=== PATIENT | male | born 1960 | race Caucasian/White ===

== ENCOUNTER 2019-12-21 12:40 | Inpatient (IN) | payer MEDICARE, OTHER ==
[~2019-12-21] VITALS: Ht 170.2 cm; Wt 73.8 kg
[2019-12-21 13:06] VITALS: BP 129/81
--- NOTE | 2019-12-21 14:04 | HP ---
ADMIT DATE: 12/21/2019 ATTENDING PHYSICIAN: Dr. Mcgregor. HISTORY OF PRESENT ILLNESS: We are asked to see this patient for admission. He was slated to go to the [facility]. The patient is age 59. He has underlying schizoaffective disorder with other medical issues. There is a previous stroke, multi-infarct dementia, cognitive impairment. He has been throwing things in his room. Mood has been very labile, explosive, lots of verbal abuse, yelling and screaming at the staff, demanding things. He is admitted here for further evaluation and COVID-19 screening. PAST MEDICAL HISTORY: Significant for type 2 diabetes. He has gotten hemiplegia, schizoaffective disorder, old stroke, dysphagia and cognitive impairments. ALLERGIES: HE HAS ALLERGIES TO EGG WHITE. EXACT CAUSE IS UNCLEAR. CURRENT MEDICINES: Reviewed. He was taking Tylenol, Cogentin, cholecalciferol, Dulcolax, Lexapro, Neurontin, ibuprofen, ketaconazole shampoo, Klonopin, loperamide, metformin, Pepcid, Seroquel, Remeron, Senna, tramadol, Depakote, vitamin B12, and zinc. SOCIAL HISTORY: He is a smoker. He does not drink any alcohol. FAMILY HISTORY: Noncontributory. REVIEW OF SYSTEMS: Significant for some dyspnea with minimal exertion. He denied any chest pain, palpitations, COVID exposure, nausea, and vomiting. All other systems reviewed and turned to be negative. PHYSICAL EXAMINATION: GENERAL: When I saw him, this is a pleasant gentleman. He was fairly alert and cooperative. INITIAL VITAL SIGNS: Showed blood pressure 129/81, pulse 56 and regular. He was afebrile, oxygen saturation 92% on room air. HEENT: Head is without trauma. Pupils are reactive. Sclerae nonicteric. Oropharynx clear. NECK: Supple, no bruits identified. LUNGS: Good breath sounds, otherwise clear. CARDIOVASCULAR: Showed regular heart tones. No gallops. ABDOMEN: Soft, obese, protuberant. No organomegaly. Bowel sounds were hypoactive. EXTREMITIES: Showed trace edema. NEUROLOGIC: Focally intact. Speech is fluent. PERTINENT LABORATORY STUDIES: CBC, chemistry panel serology, COVID-19 swab, and treponema serology had been sent. ASSESSMENT: 1. A 59-year-old gentleman, [facility] resident with multiinfarct dementia. 2. Agitated behavior with aggression. 3. Type 2 diabetes mellitus. 4. Gastroesophageal reflux disease. 5. Old cerebrovascular accident. 6. History of dysphagia. PLAN: 1. Admit to the inpatient unit. 2. Some home meds have been restarted. 3. Await lab results and coronavirus swabs. When that comes back negative, he can safely go upstairs to the [facility]. 4. Other psych meds per Dr. Belle. CARLOZ MCGREGOR MD DR: JIM/christine JOB#: [id number] / [id number]
[2019-12-21] MEDS ORDERED: FAMO-63 PO (14:08)
[2019-12-21] MEDS ORDERED: METF10007 PO (14:08)
[2019-12-21] MEDS ORDERED: MIRT15TA2 PO (14:08)
[2019-12-21] MEDS ORDERED: CLON0.5T PO (14:08)
[2019-12-21] MEDS ORDERED: ACET325T21 PO (14:08)
[2019-12-21] MEDS ORDERED: VALP250S3 PO (14:08)
[2019-12-21] MEDS ORDERED: ESCITALOPRAM OX20 MG PO (14:08)
[2019-12-21] MEDS ORDERED: QUET25TA5 PO (14:08)
[2019-12-21 14:35] LABS: BASO # 0.1 x10^3/uL (0.0-0.2); BASO % 1 % (0-3); EOS # 0.1 x10^3/uL (0.0-0.7); EOS % 1 % (0-3); HEMOGLOBIN 15.1 g/dL (13.0-17.5); LYMPH # 2.9 x10^3/uL (1.0-4.8); LYMPH % 33 % (24-48); MEAN CORPUSCULAR HEMOGLOBIN 33 pg (25-35); MEAN CORPUSCULAR HGB CONC 33 g/dL (31-37); MEAN CORPUSCULAR VOLUME 99 fL (79-100); MONO % 11 % (0-9); NEUT # 4.8 x10^3uL (1.8-7.7); NEUT % 54 % (31-73); PLATELET COUNT 169 x10^3/uL (140-400); RED BLOOD COUNT 4.64 x10^6/uL (4.30-5.70); RED CELL DISTRIBUTION WIDTH 14.3 % (11.5-14.5); WHITE BLOOD COUNT 8.8 x10^3/uL (4.0-11.0)
[2019-12-21 14:36] VITALS: BP 118/72
[2019-12-21 14:45] LABS: ALBUMIN 2.7 g/dL (3.4-5.0); ALBUMIN/GLOBULIN RATIO 0.7 (1.0-1.7); CALCIUM 8.8 mg/dL (8.5-10.1); MAGNESIUM 1.7 mg/dL (1.8-2.4); POTASSIUM 4.1 mmol/L (3.5-5.1); TOTAL BILIRUBIN 0.1 mg/dL (0.2-1.0); TOTAL PROTEIN 6.5 g/dL (6.4-8.2)
[2019-12-21] MEDS ORDERED: ACETAMINOPHEN 325 MG TABLET PO PRN (15:15)
--- NOTE | 2019-12-21 15:45 | EKG ---
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
[2019-12-21] MEDS: metFORMIN 500 MG TABLET PO SCH (17:09)
[2019-12-21 19:50] VITALS: BP 122/79
[2019-12-21] MEDS: VALPROIC ACID 250 MG CAPSULE. PO SCH (21:22)
[2019-12-21] MEDS: clonazePAM 0.5 MG TABLET PO SCH (21:23)
[2019-12-21] MEDS: MIRTAZAPINE ODT 15 MG TAB.RAPDIS. PO SCH (21:23)
[2019-12-21] MEDS: QUEtiapine 25 MG TABLET. PO SCH (21:23)
--- NOTE | 2019-12-21 22:03 | PDOC ---
Exam Note: Kwasi Note: Please also refer to the separate dictated note~for this date of service dictated separately.~Patient seen individually. Discussed the patient with Nursing staff reviewed the chart.~Reviewed interim history and current functioning. Reviewed vital signs,~Labs/ Radiology~and current medications noted below. Continue current treatment with the changes noted in the dictated addendum note Assessment: Vital Signs/I&O: Vital Signs Date Time Temp Pulse Resp B/P (MAP) Pulse Ox O2 Delivery O2 Flow Rate FiO2 12/21/19 20:30 Room Air 12/21/19 19:50 98.7 71 20 122/79 (93) 99 Labs: Laboratory Tests Test 12/21/19 14:21 12/21/19 20:17 White Blood Count 8.8 x10^3/uL (4.0-11.0) Red Blood Count 4.64 x10^6/uL (4.30-5.70) Hemoglobin 15.1 g/dL (13.0-17.5) Hematocrit 46.0 % (39.0-53.0) Mean Corpuscular Volume 99 fL (79-100) Mean Corpuscular Hemoglobin 33 pg (25-35) Mean Corpuscular Hemoglobin Concent 33 g/dL (31-37) Red Cell Distribution Width 14.3 % (11.5-14.5) Platelet Count 169 x10^3/uL (140-400) Neutrophils (%) (Auto) 54 % (31-73) Lymphocytes (%) (Auto) 33 % (24-48) Monocytes (%) (Auto) 11 % (0-9) H Eosinophils (%) (Auto) 1 % (0-3) Basophils (%) (Auto) 1 % (0-3) Neutrophils # (Auto) 4.8 x10^3uL (1.8-7.7) Lymphocytes # (Auto) 2.9 x10^3/uL (1.0-4.8) Monocytes # (Auto) 1.0 x10^3/uL (0.0-1.1) Eosinophils # (Auto) 0.1 x10^3/uL (0.0-0.7) Basophils # (Auto) 0.1 x10^3/uL (0.0-0.2) Sodium Level 137 mmol/L (136-145) Potassium Level 4.1 mmol/L (3.5-5.1) Chloride Level 100 mmol/L (98-107) Carbon Dioxide Level 30 mmol/L (21-32) Anion Gap 7 (6-14) Blood Urea Nitrogen 11 mg/dL (8-26) Creatinine 1.0 mg/dL (0.7-1.3) Estimated GFR (Cockcroft-Gault) 77.0 BUN/Creatinine Ratio 11 (6-20) Glucose Level 368 mg/dL (70-99) H Calcium Level 8.8 mg/dL (8.5-10.1) Magnesium Level 1.7 mg/dL (1.8-2.4) L Total Bilirubin 0.1 mg/dL (0.2-1.0) L Aspartate Amino Transferase (AST) 6 U/L (15-37) L Alanine Aminotransferase (ALT) 16 U/L (16-63) Alkaline Phosphatase 72 U/L (46-116) Total Protein 6.5 g/dL (6.4-8.2) Albumin 2.7 g/dL (3.4-5.0) L Albumin/Globulin Ratio 0.7 (1.0-1.7) L Glucose (Fingerstick) 210 mg/dL (70-99) H Current Medications: Meds: Current Medications Medications (Trade) Dose Ordered Sig/Samm Route PRN Reason Start Time Stop Time Status Last Admin Dose Admin Clonazepam (KlonoPIN) 0.25 mg TID PO 12/21/19 21:00 12/21/19 21:23 Mirtazapine (Remeron Mariah-Tab) 7.5 mg HS PO 12/21/19 21:00 12/21/19 21:23 Quetiapine Fumarate (SEROquel) 12.5 mg QHS PO 12/21/19 21:00 12/21/19 21:23 Metformin HCl (Glucophage) 1,000 mg BIDWMEALS PO 12/21/19 17:00 12/21/19 17:09 Valproic Acid (Depakene) 250 mg BID PO 12/21/19 21:00 12/21/19 21:22 I have reviewed the current psychotropics carefully including drug interactions. Risk benefit ratio favors no change other than as noted in my dictated progress note. CAREN MALIK MD Dec 21, 2019 22:03
--- NOTE | 2019-12-21 23:36 | CONS ---
DATE OF CONSULTATION: 12/21/2019 PSYCHIATRIC CONSULTATION This note covers elements not covered in my initial note of 12/20. IDENTIFYING DATA: The patient is a 59-year-old male, referred to us from [facility] by his primary care physician and psychiatrist on account of an acute exacerbation of his schizoaffective disorder, bipolar type, and failure for outpatient psychiatric interventions. He was accepted on the [facility], but is on the medical/surgical floor until his COVID screen is negative before we transition him there. The patient also has a past history of CVA, multiinfarct dementia, cognitive impairment. [facility], he was throwing things in his room. He has had marked mood lability, explosive outbursts, verbally abusive, yelling, screaming at staff, demanding things. I have been asked to consult to follow him from a psychiatric standpoint while he is on the medical/surgical floor. CHIEF COMPLAINT: "I don't have any problems with psychiatric issues." HISTORY OF PRESENT ILLNESS: After stating the above as I interviewed the patient, he is able to tell me that he was born and raised in [place], and had longstanding mental health treatment, and then was ultimately transferred to this area and he is not sure about the circumstances for that happening since he does not have any family in this area, but only in [place]. 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 However, since he came to this area, shortly thereafter he had a CVA, which complicated his schizoaffective disorder, bipolar type. Recently, he was moved from the level 2 facility to [facility] and has been extremely psychotic, agitated, labile in his mood, aggressive and disruptive, resulting in this referral. No active suicidal or homicidal ideation. PAST PSYCHIATRIC HISTORY: As above. MEDICAL HISTORY: Type 2 diabetes mellitus, status post CVA, dysphagia. ALLERGIES: EGG WHITE. CURRENT PSYCHOTROPICS: Include Lexapro, Seroquel, Remeron, Depakote. MRAD was reviewed. SOCIAL HISTORY: He is a smoker. No alcohol abuse. FAMILY HISTORY: Noncontributory. REVIEW OF SYSTEMS: Ambulation impaired. Complains of some dyspnea with mild exertion. No pain, palpitations. MENTAL STATUS EXAMINATION: The patient is oriented to himself, situation; knew he was admitted earlier today. Speech has some latency, coherent. Does have some aphasia. Abstraction fair, computation impaired. Attention span short. Language function intact. He is somewhat paranoid. No active suicidal or homicidal ideation. LABORATORY DATA: Reviewed. IMPRESSION: Schizoaffective disorder, bipolar type, mixed with psychotic features; anxiety disorder, unspecified; impulse control disorder, unspecified. Rest as above. RECOMMENDATIONS: From a psychiatric standpoint, continue his current psychotropics. Once he is COVID negative, we will transition him to the [facility]. Dr. Ross/Dr. Bennett, thank you for the opportunity to participate in the patient's care. MAN Lokesh MALIK MD DR: CASA/christine JOB#: [id number] / [id number]
[2019-12-22 06:32] VITALS: BP 110/61
[2019-12-22] MEDS: metFORMIN 500 MG TABLET PO SCH ×2 (08:03→17:00)
[2019-12-22] MEDS: VALPROIC ACID 250 MG CAPSULE. PO SCH ×2 (08:04→20:00)
[2019-12-22] MEDS: clonazePAM 0.5 MG TABLET PO SCH ×3 (08:04→20:00)
[2019-12-22] MEDS ORDERED: FAMOTIDINE 20 MG TABLET PO SCH (09:00)
[2019-12-22] MEDS ORDERED: CITALOPRAM 20 MG TABLET. PO SCH (09:00)
[2019-12-22 11:37] VITALS: BP 115/70
[2019-12-22 13:46] LABS: HDLC 26 mg/dL (40-60); TRIGLYCERIDES 527 mg/dL (0-150); VLDLC 105 mg/dL (0-40)
[2019-12-22 13:47] LABS: THYROID STIM HORMONE (TSH) 1.466 uIU/mL (0.358-3.740)
[2019-12-22 14:58] VITALS: BP 114/72
--- NOTE | 2019-12-22 15:48 | PN ---
DATE: 12/22/2019 ATTENDING PHYSICIAN: Dr. Mcgregor. SUBJECTIVE: No new complaints. He is comfortable. He is alert. He is not in any acute distress. OBJECTIVE FINDINGS: VITAL SIGNS: Blood pressure today is 115/70, room air sats 93%, pulse is between 50 and 70, temperature 98.2 degrees Fahrenheit. HEENT: Head is without trauma. Pupils are reactive. Sclerae nonicteric. Oropharynx is clear. NECK: Supple, no bruits identified. LUNGS: Otherwise clear. CARDIOVASCULAR: Showed regular heart tones. No gallops. ABDOMEN: Soft. EXTREMITIES: Without edema. NEUROLOGIC FINDINGS: Focally intact. No deficits. LABORATORY DATA: Laboratory studies were reviewed. Normal electrolytes. Hemoglobin was 15.1 grams with a normal white count of 8800. Nonfasting blood sugar 158 and COVID, coronavirus, swab is still pending. ASSESSMENT: 1. A 59-year-old gentleman, assisted resident with multiinfarct dementia. 2. Agitation with aggression. 3. Type 2 diabetes. 4. Gastroesophageal reflux disease. 5. Old cerebrovascular accident. 6. History of dysphagia. PLAN: 1. Diet as tolerated. 2. Home meds continued. 3. Await COVID-19 swab. When that returns negative, he can be sent upstairs to the [facility]. CARLOZ MCGREGOR MD DR: JIM/christine JOB#: [id number] / [id number]
[2019-12-22 19:44] VITALS: BP 103/59
[2019-12-22] MEDS: MIRTAZAPINE ODT 15 MG TAB.RAPDIS. PO SCH (20:00)
[2019-12-22] MEDS: QUEtiapine 25 MG TABLET. PO SCH (20:00)
[2019-12-22 20:18] LABS: COLOR,URINE YELLOW
[2019-12-22 20:19] LABS: BACTERIA,URINE FEW /HPF (0-FEW); BILIRUBIN,URINE NEG (NEG); CLARITY,URINE CLEAR; GLUCOSE,URINE 500 mg/dL (NEG); NITRITE,URINE NEG (NEG); RBC,URINE 0 /HPF (0-2); SQUAMOUS EPITHELIAL CELL,UR FEW /LPF; UROBILINOGEN,URINE 0.2 mg/dL (0.2 mg/dL)
[2019-12-22] MEDS ORDERED: NYSTATIN TOPICAL POWDER 15GM BOTTLE. TP SCH (21:00)
--- NOTE | 2019-12-22 22:04 | PDOC ---
Exam Note: Kwasi Note: Please also refer to the separate dictated note~for this date of service dictated separately.~Patient seen individually. Discussed the patient with Nursing staff reviewed the chart.~Reviewed interim history and current functioning. Reviewed vital signs,~Labs/ Radiology~and current medications noted below. Continue current treatment with the changes noted in the dictated addendum note Assessment: Vital Signs/I&O: Vital Signs Date Time Temp Pulse Resp B/P (MAP) Pulse Ox O2 Delivery O2 Flow Rate FiO2 12/22/19 19:44 99.1 50 20 103/59 (74) 93 Room Air I & O 12/21/19 12/21/19 12/22/19 15:00 23:00 07:00 Intake Total 120 ml 840 ml 560 ml Output Total 1 ml Balance 120 ml 840 ml 559 ml Labs: Laboratory Tests Test 12/22/19 11:55 12/22/19 17:00 12/22/19 19:54 12/22/19 19:59 Glucose (Fingerstick) 158 mg/dL (70-99) H 178 mg/dL (70-99) H 255 mg/dL (70-99) H Urine Collection Type Void Urine Color Yellow Urine Clarity Clear Urine pH 7.0 Urine Specific [place] 1.025 Urine Protein Neg (NEG-TRACE) Urine Glucose (UA) 500 mg/dL (NEG) Urine Ketones (Stick) 15 mg/dL (NEG) Urine Blood Neg (NEG) Urine Nitrite Neg (NEG) Urine Bilirubin Neg (NEG) Urine Urobilinogen Dipstick 0.2 mg/dL (0.2 mg/dL) Urine Leukocyte Esterase Neg (NEG) Urine RBC 0 /HPF (0-2) Urine WBC 11-20 /HPF (0-4) Urine Squamous Epithelial Cells Few /LPF Urine Bacteria Few /HPF (0-FEW) Current Medications: Meds: Current Medications Medications (Trade) Dose Ordered Sig/Samm Route PRN Reason Start Time Stop Time Status Last Admin Dose Admin Famotidine (Pepcid) 20 mg DAILY PO 12/22/19 09:00 12/22/19 08:04 Citalopram Hydrobromide (CeleXA) 40 mg DAILY PO 12/22/19 09:00 12/22/19 08:04 Nystatin (Nystop) 1 shay BID TP 12/22/19 21:00 12/22/19 21:00 I have reviewed the current psychotropics carefully including drug interactions. Risk benefit ratio favors no change other than as noted in my dictated progress note. Diagnosis: Problems: (1) Schizoaffective disorder, bipolar type (2) Bipolar disorder, curr episode mixed, severe, with psychotic features (3) Impulse control disorder, unspecified (4) Anxiety disorder, unspecified CAREN MALIK MD Dec 22, 2019 22:04
[2019-12-22] MEDS ORDERED: NYST15PO9 TP (22:08)
[2019-12-22 22:58] VITALS: BP 108/70
--- NOTE | 2019-12-23 12:31 | DS ---
DATE OF DISCHARGE: 12/22/2019 FINAL DISCHARGE DIAGNOSES: 1. A 59-year-old gentleman with multiinfarct dementia. 2. Associated behavioral issues with agitation and aggression. 3. Type 2 diabetes mellitus. 4. Gastroesophageal reflux disease. 5. Old cerebrovascular accident. 6. History of dysphagia. HISTORY AND PHYSICAL: This is a 59-year-old gentleman with multiple strokes. He is in a nursing facility for his medical issues. He has had agitation and aggressive behavior. He was slated to go to the [facility]. He was admitted to the medical floor for screening of COVID-19. PHYSICAL EXAMINATION: Please see the dictated note. PERTINENT LABORATORY AND X-RAY STUDIES: Admission hemoglobin was 15.1 g/dL, white count 8800. Electrolytes were within normal range. Creatinine is 1.0 mg percent. Depakote levels were drawn. Serology negative for Treponema pallidum and not detected for coronavirus. Subsequent blood sugars were drawn and they were within acceptable range. Cholesterol was 237. TSH 1.4. COURSE IN THE HOSPITAL: The patient was admitted to the medical floor. We dao blood work. He had a diabetic diet. He was stable. His COVID swab came back negative late on the evening of the , he was therefore discharged then to go upstairs to the [facility]. His discharge meds are unchanged. He will continue his Klonopin 0.5 mg t.i.d., Lexapro, Pepcid, metformin 1000 b.i.d., Remeron, nystatin and Depakote doses unchanged. He was discharged then from our hospital in stable condition with explicit instructions and followup care. CARLOZ MCGREGOR MD DR: JIM/christine JOB#: [id number] / [id number] [facility]
== END 2019-12-22 22:52 | DRG 885 ==
LOC: 1 SOUTH 12:40
PROVIDERS: ADMIT Hospitalist; ATTEND Hospitalist
DX: F25.0 Schizoaffective disorder, bipolar type (principal); F17.200 Nicotine dependence, unspecified, uncomplicated; F41.9 Anxiety disorder, unspecified; F63.9 Impulse disorder, unspecified; F01.50 Vascular dementia, unspecified severity, without behavioral disturbance, psychotic disturbance, mood disturbance, and anxiety; K21.9 Gastro-esophageal reflux disease without esophagitis; Z20.828 Contact with and (suspected) exposure to other viral communicable diseases; Z79.84 Long term (current) use of oral hypoglycemic drugs; Z91.012 Allergy to eggs; E11.9 Type 2 diabetes mellitus without complications; I69.311 Memory deficit following cerebral infarction
CPT/HCPCS: 36415; 80053; 80061; 81001; 82306; 82607; 82947; 83036; 83735; 84443; 85025; 86592; 87077; 87086; 87186; 93005; U0003

== ENCOUNTER 2019-12-22 22:05 | Inpatient (IN) | payer MEDICARE, OTHER ==
[~2019-12-22] VITALS: Ht 170.2 cm; Wt 72.8 kg
[~2019-12-22 22:05] MED LIST: ACET325T21 PO; CLON0.5T PO; ESCITALOPRAM OX20 MG PO; FAMO-63 PO; METF10007 PO; MIRT15TA2 PO; QUET25TA5 PO; VALP250S3 PO
[2019-12-22] MEDS ORDERED: NYST15PO9 TP (22:08)
[2019-12-22 23:25] VITALS: BP 113/74
[2019-12-23] MEDS ORDERED: MAGNESIUM HYDROXIDE 2,400 MG/30 ML ORAL.SUSP. PO PRN (00:15)
[2019-12-23] MEDS ORDERED: METHYL SALICYLATE/MENTHOL TOPICAL OINTMENT 57GM TUBE. TP PRN (00:15)
[2019-12-23] MEDS ORDERED: MAG HYDROX/AL HYDROX/SIMETH 30 ML ORAL.SUSP PO PRN (00:15)
[2019-12-23 06:17] LABS: VAL ACID 33 mcg/mL (50-100)
[2019-12-23 06:45] VITALS: BP 117/67
[2019-12-23] MEDS ORDERED: VALPROIC ACID 250 MG CAPSULE. PO SCH (09:00)
[2019-12-23] MEDS: clonazePAM 0.5 MG TABLET PO SCH ×3 (09:42→20:55)
[2019-12-23] MEDS: CITALOPRAM 20 MG TABLET. PO SCH (09:42)
[2019-12-23 10:08] LABS: THYROXINE 5.6 ug/dL (4.5-12.0)
--- NOTE | 2019-12-23 13:07 | CONS ---
DATE OF CONSULTATION: 12/23/2019 MEDICAL CONSULTATION AND HISTORY AND PHYSICAL ATTENDING PHYSICIAN: Dr. Belle. HISTORY OF PRESENT ILLNESS: The patient is a 59-year-old gentleman I had on the medical floor. He was there for 2 days pending his COVID-19 swab, that came back negative. He was transferred to the [facility]. He has a longstanding history of schizoaffective disorder and other medical issues. He has had previous multi-infarct dementia, strokes, cognitive impairment, he has been throwing things in his room, mood has been labile, very exposed to lots of verbal abuse and yelling and screaming at the staff and demanding things. Other medical issues include type 2 diabetes, hemiplegia, schizoaffective disorder, old stroke, dysphagia and cognitive impairments. He has ALLERGIES TO EGG WHITE, exact reaction is unclear. CURRENT MEDICINES: Reviewed. He was on Tylenol, Klonopin, Lexapro, famotidine, metformin 1000 mg b.i.d., Remeron, nystatin, Seroquel and Depakote 250 mg p.o. b.i.d. SOCIAL HISTORY: He is a smoker, does not drink any alcohol. FAMILY HISTORY: Unobtainable. REVIEW OF SYSTEMS: He has had some dyspnea on minimal exertion. He denied any chest pain, COVID exposure, nausea, vomiting. All other systems reviewed and turned out to be negative. PHYSICAL EXAMINATION: GENERAL: When I saw him, this is a pleasant gentleman who is in no acute distress. VITAL SIGNS: Initial vital signs showed a pulse of 50 per minute, he was asymptomatic. Temperature 97.5 degrees Fahrenheit, blood pressure 117/67, pulse is 97 and regular. HEENT: Head is without trauma. Pupils are reactive. Sclerae nonicteric. Oropharynx is clear. NECK: Supple. No bruits. LUNGS: Otherwise clear. CARDIOVASCULAR: Showed regular heart tones. No gallops. Peripheral pulses are palpable and full. ABDOMEN: Soft, protuberant. No organomegaly. Bowel sounds are hypoactive. EXTREMITIES: Show no cyanosis or edema. NEUROLOGIC: Focally intact. Speech is fluent. LABORATORY STUDIES: From downstairs showed a normal hemoglobin of 15.1 g/dL, white count 8800. Chemistry panel within normal range. Nonfasting blood sugar had been 368, but repeated it was down in the 150s. ASSESSMENT 1. A 59-year-old gentleman with multi-infarct dementia. 2. Behavior issues with agitation and aggression. 3. Type 2 diabetes. 4. Gastroesophageal reflux disease. 5. Old cerebrovascular accident. 6. History of dysphagia. RECOMMENDATIONS: 1. Home meds have been reviewed and restarted. 2. Coronavirus swab was reported as negative. 3. We shall follow along for medical issues during his stay here. Thank you again for asking me to see this patient for medical consultation. CARLOZ MCGREGOR MD DR: JIM/christine JOB#: [id number] / [id number]
[2019-12-23 15:19] VITALS: BP 118/78
--- NOTE | 2019-12-23 15:53 | TX PLAN ---
Interdisciplinary Tx Plan Admission Information Dec 22, 2019 at 22:05 Legal Status (on Admission): Voluntary DPOA/Guardian Name: Self Sign Other Contact Name: Dr. Lola Chou Other Contact Verified Code Status: Full Code Allergies: Coded Allergies: egg (Verified Allergy, Unknown, 12/21/19) Estimated Length of Stay: 14 Diagnoses Primary Diagnosis: Schizoafective d/o, bipolar type, with acute exacerbation Reasons for Admission: Aggressive, Agitated, Angry, Grief, Poor impulse control Problem in Patient's Words: Per Pavan, "I got aggressive, I gave them the bird." Additional Admission Comments: Per intake record, throwing things in his room, mood lability, explsive, vebaly abusive, yelling/screaming, running his wheelchair into things, defacated on th floor, demanding Problems Active Problems: mood lability, explosive temper, verbally abusive, yelling screaming, running w/c into things, defecated on the floor, demanding Inactive Problems: Adequate intake of foods has been cooperative with medication administration Pt Strengths/Limitations Ability for Mckenzie: Poor Cognitive Functioning/Ability: Fair Communication Skills/Ability: Fair Financial Resources: Fair Insight/Judgement: Fair Intellectual Ability: Fair Physical Health: Fair Social Skills: Fair Stability in Family: Poor Verbal Skills: Fair Discharge Criteria Discharge Criteria: Adequate arrangements @DC, Improved behavior, Improved mood/thought Preliminary Discharge Plan Preliminary DC Plan: Fdc Other Arrangements: [facility] Special Precautions Special Precautions: Agitation/Assault Fall Risk: High Initial D/C Plan To return to [facility] Identified Discharge Needs: F/U with PCP, Psychiatrist, arrange for counseling if available. Currently Utilized Resources Currently Utilized Resources/P: PCP, APNP psych 24 hour care/oversight by [facility] Referrals Community Resources: Therapy referral if available at [facility] Identified Problems/Hx/Goals Objectives/Short-Term Goals Short Term Goals: Control abnormal behavior, Dec. Aggression, Dec. Symp. Depression, Medication Stabilization, Monitor Med Effects, Prevent Deteri oration, Promote Coping Skill Short Term Goals in Patient's: "To get out and back to [facility]." Interventions/Frequency Staff Interventions/Frequency&: Nursing to provide routine checks, medication administration, and adl support. Psychiatry to see three times a week. SW to visit twice weekly. Will encourage SW and recerational therapy group involvement. 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 Pavan reports he was eligible for disability at the age of 20 due to seizure dx. Social: Pavan enjoyed riding motorcycles, rock and roll music, TV, Bingo, and enjoys Education: Pavan graduated high school. Community Follow-up PCP, Psychiatry, Counseling Treatment Plan Explained Patient/Cost Clerk had this treatment plan explained to him/her as indicated by the signature below and has been given the opportunity to ask questions and make suggestions: Date: Patient/Cost Clerk Signature: HERMELINDA DIOP Dec 23, 2019 15:53
[2019-12-23] MEDS: metFORMIN 500 MG TABLET PO SCH (17:19)
[2019-12-23] MEDS: MIRTAZAPINE ODT 15 MG TAB.RAPDIS. PO SCH (20:53)
[2019-12-23] MEDS: QUEtiapine 25 MG TABLET. PO SCH (20:53)
[2019-12-23] MEDS: VALPROIC ACID 250 MG CAPSULE. PO SCH (20:54)
--- NOTE | 2019-12-23 22:06 | PDOC ---
Exam Note: Kwasi Note: Please also refer to the separate dictated note~for this date of service dictated separately.~Patient seen individually. Discussed the patient with Nursing staff reviewed the chart.~Reviewed interim history and current functioning. Reviewed vital signs,~Labs/ Radiology~and current medications noted below. Continue current treatment with the changes noted in the dictated addendum note Assessment: Vital Signs/I&O: Vital Signs Date Time Temp Pulse Resp B/P (MAP) Pulse Ox O2 Delivery O2 Flow Rate FiO2 12/23/19 15:19 98.4 59 59 118/78 (91) 95 Room Air Labs: Laboratory Tests Test 12/23/19 05:52 12/23/19 11:15 12/23/19 16:40 D-Dimer (Delmi) < 0.19 mg/L (0.00-0.50) Thyroxine (T4) 5.6 ug/dL (4.5-12.0) Total Triiodothyronine (TT3) 82 ng/dL (71-180) Valproic Acid Level 33 mcg/mL (50-100) L Valproic Acid Last Dose Date 12/22/19 Valproic Acid Last Dose Time 2100 Glucose (Fingerstick) 249 mg/dL (70-99) H 255 mg/dL (70-99) H Current Medications: Meds: Current Medications Medications (Trade) Dose Ordered Sig/Samm Route PRN Reason Start Time Stop Time Status Last Admin Dose Admin Clonazepam (KlonoPIN) 0.25 mg TID PO 12/23/19 09:00 12/23/19 20:55 Mirtazapine (Remeron Mariah-Tab) 7.5 mg HS PO 12/23/19 21:00 12/23/19 20:53 Quetiapine Fumarate (SEROquel) 12.5 mg QHS PO 12/23/19 21:00 12/23/19 20:53 Citalopram Hydrobromide (CeleXA) 40 mg DAILY PO 12/23/19 09:00 12/23/19 09:42 Valproic Acid (Depakene) 250 mg BID PO 12/23/19 09:00 12/23/19 14:00 DC 12/23/19 09:42 Metformin HCl (Glucophage) 1,000 mg BIDWMEALS PO 12/23/19 17:00 10/30/20 17:19 Valproic Acid (Depakene) 500 mg BID PO 12/23/19 21:00 12/23/19 20:54 I have reviewed the current psychotropics carefully including drug interactions. Risk benefit ratio favors no change other than as noted in my dictated progress note. Diagnosis: Problems: (1) Schizoaffective disorder, bipolar type (2) Impulse control disorder, unspecified (3) Anxiety disorder, unspecified (4) Bipolar disorder, curr episode mixed, severe, with psychotic features CAREN MALIK MD Dec 23, 2019 22:06
[2019-12-24 06:37] VITALS: BP 122/72
[2019-12-24] MEDS: CITALOPRAM 20 MG TABLET. PO SCH (08:38)
[2019-12-24] MEDS: clonazePAM 0.5 MG TABLET PO SCH ×3 (08:38→20:33)
[2019-12-24] MEDS: VALPROIC ACID 250 MG CAPSULE. PO SCH ×2 (08:38→20:31)
[2019-12-24] MEDS: metFORMIN 500 MG TABLET PO SCH ×2 (08:38→16:54)
[2019-12-24 16:15] VITALS: BP 105/68
[2019-12-24] MEDS: QUEtiapine 25 MG TABLET. PO SCH (20:32)
[2019-12-24] MEDS: MIRTAZAPINE ODT 15 MG TAB.RAPDIS. PO SCH (20:32)
--- NOTE | 2019-12-24 21:57 | PDOC ---
Exam Note: Kwasi Note: Please also refer to the separate dictated note~for this date of service dictated separately.~Patient seen individually. Discussed the patient with Nursing staff reviewed the chart.~Reviewed interim history and current functioning. Reviewed vital signs,~Labs/ Radiology~and current medications noted below. Continue current treatment with the changes noted in the dictated addendum note Assessment: Vital Signs/I&O: Vital Signs Date Time Temp Pulse Resp B/P (MAP) Pulse Ox O2 Delivery O2 Flow Rate FiO2 12/24/19 16:15 98.1 53 20 105/68 (80) 92 Room Air I & O 12/23/19 12/23/19 12/24/19 14:59 22:59 06:59 Intake Total 425 ml 320 ml Balance 425 ml 320 ml Labs: Laboratory Tests Test 12/24/19 07:32 12/24/19 11:59 12/24/19 16:41 12/24/19 19:35 Glucose (Fingerstick) 235 mg/dL (70-99) H 204 mg/dL (70-99) H 158 mg/dL (70-99) H 187 mg/dL (70-99) H Current Medications: I have reviewed the current psychotropics carefully including drug interactions. Risk benefit ratio favors no change other than as noted in my dictated progress note. Diagnosis: Problems: (1) Schizoaffective disorder, bipolar type (2) Impulse control disorder, unspecified (3) Anxiety disorder, unspecified (4) Bipolar disorder, curr episode mixed, severe, with psychotic features CAREN MALIK MD Dec 24, 2019 21:57
--- NOTE | 2019-12-24 23:30 | HP ---
ADMIT DATE: 12/22/2019 PSYCHIATRIC ADMISSION HISTORY AND EVALUATION This late entry 12/22/2019 covers elements not covered in my initial note. IDENTIFYING DATA: The patient is a 59-year-old male who was transitioned to [facility] Medical[facility]Surgical floor after his COVID-19 screen returned negative. The patient was initially referred from [facility] with a diagnosis of schizoaffective disorder, bipolar type, with acute exacerbation. He had been throwing things in his room, had marked mood lability at the [facility], verbally abusive, yelling, screaming, running his wheelchair into things, manipulative. He is having bowel movements on the floor, demanding, threatening. He had failed outpatient psychiatric interventions. Behaviors were deemed dangerous, unmanageable, resulting in this referral, having failed outpatient psychiatric interventions. CHIEF COMPLAINT: "I need to go home." HISTORY OF PRESENT ILLNESS: The patient has a history of schizoaffective disorder, bipolar type and status post cerebrovascular accident. He has been residing at [facility] for about 2 years, before that he was at a level 2 nursing facility in [place], [place]. Recently, he has had an acute exacerbation with increased psychotic symptoms, sleep and appetite changes. No active suicidal or homicidal ideation. PAST PSYCHIATRIC HISTORY: As above. MEDICAL HISTORY: Positive for status post CVA with hemiplegia, type 2 diabetes mellitus, dysphagia, cognitive impairment. ACCU-CHEKS: Before meals and at bedtime. ALLERGIES: EGGS. CODE STATUS: Full code. DIET: Regular. Takes medications whole, floated in pudding. Ambulates in wheelchair, 1-person assist. UA on 12/22/2019, positive on [address] [place] [address], culture pending. CURRENT PSYCHOTROPICS: Klonopin 0.5 mg t.i.d., Lexapro 20 mg a day, Seroquel 12.5 mg at bedtime, Remeron 7.5 mg at bedtime. FAMILY HISTORY: Noncontributory. 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 He has been disabled consequent to this, and several years ago, was transitioned from [place] to this area and initially lived for many years with a level 2 psychiatric facility. No alcohol or drug abuse, physical, sexual or elder abuse. Not known to be a perpetrator. REVIEW OF SYSTEMS: Ambulation impaired. No CV, , pulmonary, eye, ENT system symptoms on review. MENTAL STATUS EXAMINATION: The patient is reasonably oriented. Speech is coherent, rapid at times. Abstraction fair, computation impaired, language function intact, attention span short. Mood and affect remain labile. LABORATORY DATA: Reviewed. IMPRESSION: Schizoaffective disorder, bipolar type, mixed with psychotic features; anxiety disorder, unspecified; impulse control disorder, unspecified. Rest as above. PLAN: Admit to Geropsychiatry Unit at [facility]. I will see the patient daily individually from a psychiatric standpoint. Medical followup with Dr. Ross/Dr. Bennett. Continue the patient on his current psychotropics. Consider tapering the Klonopin following labs level on the Depakote and adjusted it to reach a therapeutic level. Medical followup with Dr. Bennett/Dr. Ross. ESTIMATED LENGTH OF STAY: 10-12 days. DISPOSITION: Plans back to [facility] when stable. MAN Lokesh MALIK MD DR: CASA/christine JOB#: [id number] / [id number]
[2019-12-25 06:06] VITALS: BP 124/78
--- NOTE | 2019-12-25 07:51 | PDOC ---
Exam Note: Kwasi Note: This note is a late entry for 12/23/2019 covers elements not covered in my initial note. Subjective: The patient was seen face to face in the morning of 12/23/2019 for treatment team meeting with Latia Montero and Marlyn (family welfare social work professor), Zelda, activity therapy. The patient has been calmer, cooperative, and compliant with medications. He has been having wound care for his heels and therapy. We reviewed his past history at length. Around the age of 18, he had his first psychotic breakdown, suicide attempt and has had a chronic psychiatric disorder since then. He has been on disability as history of seizure disorder. Discussed with Musa GAUTAM, reviewed the chart. He slept 4-1/4 hours previous night. Review of Systems: Ambulation impaired. No CV, , pulmonary, eye system symptoms on review. Mental Status Exam: The patient is oriented to himself and situation. Speech has some latency, coherent. Abstraction is fair. Computation is impaired. Language function is intact. Attention span is short. Mood and affect remains labile. Laboratory Data: Reviewed. Impression: Schizoaffective disorder bipolar type mixed with psychotic features. Anxiety disorder unspecified. Impulse control disorder unspecified. Plan: The patients valproic acid level on Depakote 250 mg b.i.d. is 33. We will increase to 500 mg b.i.d. Check CBC, CMP, valproic acid level in 3 days. Continue Klonopin 0.5 mg t.i.d. We will taper gradually, Lexapro 20 mg a day, Seroquel 12.5 mg h.s., Remeron 7.5 mg h.s. Adjust further as clinically indicated. Assessment: Vital Signs/I&O: Vital Signs Date Time Temp Pulse Resp B/P (MAP) Pulse Ox O2 Delivery O2 Flow Rate FiO2 12/25/19 06:06 97.7 54 16 124/78 (93) 94 12/24/19 16:15 Room Air I & O 12/24/19 12/24/19 12/25/19 15:00 23:00 07:00 Intake Total 240 ml 360 ml 120 ml Output Total 4 ml Balance 240 ml 356 ml 120 ml Labs: Laboratory Tests Test 12/24/19 11:59 12/24/19 16:41 12/24/19 19:35 Glucose (Fingerstick) 204 mg/dL (70-99) H 158 mg/dL (70-99) H 187 mg/dL (70-99) H Current Medications: I have reviewed the current psychotropics carefully including drug interactions. Risk benefit ratio favors no change other than as noted in my dictated progress note. Diagnosis: Problems: (1) Schizoaffective disorder, bipolar type (2) Impulse control disorder, unspecified (3) Anxiety disorder, unspecified (4) Bipolar disorder, curr episode mixed, severe, with psychotic features CAREN MALIK MD Dec 25, 2019 07:51
--- NOTE | 2019-12-25 08:09 | PDOC ---
Exam Note: Kwasi Note: This note is a late entry for 12/23/2019 covers elements not covered in my initial note. Subjective: The patient was seen face to face in the evening with Musa GAUTAM. Discussed with nursing staff, reviewed the chart. He slept 7 hours previous night. The patient has been somewhat withdrawn, demanding, yelling, labile, demanding to go home. I met with him at great length in the evening. He is quite dismissive of any discussion about what prompting his admission and treatment plans. Review of Systems: Ambulation impaired. No CV, , pulmonary, eye system symp toms on review. Mental Status Exam: The patient is oriented to himself and situation. Speech has some latency, coherent. Abstraction is fair. Computation is impaired. Language function is intact. Attention span is short. Mood and affect remains labile. Laboratory Data: Reviewed. Impression: Schizoaffective disorder bipolar type mixed with psychotic features. Anxiety disorder unspecified. Impulse control disorder unspecified. Plan: We have increased the Depakote yesterday and we will await labs level. Continue rest unchanged. Assessment: Vital Signs/I&O: Vital Signs Date Time Temp Pulse Resp B/P (MAP) Pulse Ox O2 Delivery O2 Flow Rate FiO2 12/25/19 06:06 97.7 54 16 124/78 (93) 94 12/24/19 16:15 Room Air I & O 12/24/19 12/24/19 12/25/19 15:00 23:00 07:00 Intake Total 240 ml 360 ml 120 ml Output Total 4 ml Balance 240 ml 356 ml 120 ml Labs: Laboratory Tests Test 12/24/19 11:59 12/24/19 16:41 12/24/19 19:35 12/25/19 07:58 Glucose (Fingerstick) 204 mg/dL (70-99) H 158 mg/dL (70-99) H 187 mg/dL (70-99) H 177 mg/dL (70-99) H Current Medications: I have reviewed the current psychotropics carefully including drug interactions. Risk benefit ratio favors no change other than as noted in my dictated progress note. Diagnosis: Problems: (1) Schizoaffective disorder, bipolar type (2) Impulse control disorder, unspecified (3) Anxiety disorder, unspecified (4) Bipolar disorder, curr episode mixed, severe, with psychotic features CAREN MALIK MD 1, 2020 08:09
[2019-12-25] MEDS: clonazePAM 0.5 MG TABLET PO SCH ×3 (08:46→20:37)
[2019-12-25] MEDS: VALPROIC ACID 250 MG CAPSULE. PO SCH ×2 (08:46→20:35)
[2019-12-25] MEDS: CITALOPRAM 20 MG TABLET. PO SCH (08:46)
[2019-12-25] MEDS: metFORMIN 500 MG TABLET PO SCH ×2 (08:46→16:31)
[2019-12-25 16:11] VITALS: BP 112/74
[2019-12-25] MEDS: QUEtiapine 25 MG TABLET. PO SCH (20:36)
[2019-12-25] MEDS: MIRTAZAPINE ODT 15 MG TAB.RAPDIS. PO SCH (20:37)
--- NOTE | 2019-12-25 20:58 | PDOC ---
Exam Note: Kwasi Note: Please also refer to the separate dictated note~for this date of service dictated separately.~Patient seen individually. Discussed the patient with Nursing staff reviewed the chart.~Reviewed interim history and current functioning. Reviewed vital signs,~Labs/ Radiology~and current medications noted below. Continue current treatment with the changes noted in the dictated addendum note Assessment: Vital Signs/I&O: Vital Signs Date Time Temp Pulse Resp B/P (MAP) Pulse Ox O2 Delivery O2 Flow Rate FiO2 12/25/19 16:11 98.3 57 18 112/74 (87) 94 Room Air I & O 12/24/19 12/24/19 12/25/19 15:00 23:00 07:00 Intake Total 240 ml 360 ml 120 ml Output Total 4 ml Balance 240 ml 356 ml 120 ml Labs: Laboratory Tests Test 12/25/19 07:58 12/25/19 12:02 12/25/19 16:39 12/25/19 19:34 Glucose (Fingerstick) 177 mg/dL (70-99) H 185 mg/dL (70-99) H 203 mg/dL (70-99) H 230 mg/dL (70-99) H Current Medications: I have reviewed the current psychotropics carefully including drug interactions. Risk benefit ratio favors no change other than as noted in my dictated progress note. Diagnosis: Problems: (1) Schizoaffective disorder, bipolar type (2) Impulse control disorder, unspecified (3) Anxiety disorder, unspecified (4) Bipolar disorder, curr episode mixed, severe, with psychotic features CAREN MALIK MD Dec 25, 2019 20:58
[2019-12-26 06:13] VITALS: BP 105/55
[2019-12-26 07:36] LABS: BASO % 1 % (0-3); EOS # 0.1 x10^3/uL (0.0-0.7); EOS % 1 % (0-3); HEMATOCRIT 44.6 % (39.0-53.0); LYMPH # 2.7 x10^3/uL (1.0-4.8); LYMPH % 31 % (24-48); MEAN CORPUSCULAR HEMOGLOBIN 33 pg (25-35); MEAN CORPUSCULAR HGB CONC 34 g/dL (31-37); MEAN CORPUSCULAR VOLUME 98 fL (79-100); MONO # 1.5 x10^3/uL (0.0-1.1); MONO % 17 % (0-9); NEUT # 4.3 x10^3uL (1.8-7.7); NEUT % 50 % (31-73); PLATELET COUNT 191 x10^3/uL (140-400); RED BLOOD COUNT 4.55 x10^6/uL (4.30-5.70); WHITE BLOOD COUNT 8.7 x10^3/uL (4.0-11.0)
[2019-12-26 07:54] LABS: ALBUMIN 2.6 g/dL (3.4-5.0); ALBUMIN/GLOBULIN RATIO 0.6 (1.0-1.7); ALK PHOS 57 U/L (46-116); ALT (SGPT) 19 U/L (16-63); ANION GAP 10 (6-14); AST (SGOT) 9 U/L (15-37); BLOOD UREA NITROGEN 12 mg/dL (8-26); BUN/CREATININE RATIO 17 (6-20); CALCIUM 8.6 mg/dL (8.5-10.1); CARBON DIOXIDE 24 mmol/L (21-32); CHLORIDE 102 mmol/L (98-107); CREATININE 0.7 mg/dL (0.7-1.3); GFR 116.2; GLUCOSE 165 mg/dL (70-99); POTASSIUM 3.7 mmol/L (3.5-5.1); SODIUM 136 mmol/L (136-145); TOTAL BILIRUBIN 0.4 mg/dL (0.2-1.0); TOTAL PROTEIN 6.7 g/dL (6.4-8.2)
[2019-12-26 07:55] LABS: VAL ACID 56 mcg/mL (50-100)
[2019-12-26] MEDS: metFORMIN 500 MG TABLET PO SCH ×2 (08:56→17:06)
[2019-12-26] MEDS: clonazePAM 0.5 MG TABLET PO SCH ×3 (08:56→21:03)
[2019-12-26] MEDS: VALPROIC ACID 250 MG CAPSULE. PO SCH ×2 (08:56→21:00)
[2019-12-26] MEDS: CITALOPRAM 20 MG TABLET. PO SCH (08:56)
[2019-12-26 09:04] LABS: % EOS 1 % (0-5); % LYMPHS 37 % (24-48); % MONOS 13 % (0-10); % SEGS 49 % (35-66); PLT ESTIMATE ADEQUATE (ADEQUATE)
[2019-12-26] MEDS ORDERED: NICOTINE POLACRILEX GUM 2 MG GUM. BC PRN (10:45)
[2019-12-26 16:08] VITALS: BP 124/72
[2019-12-26] MEDS ORDERED: DIVALPROEX SODIUM 125 MG TABLET.DR. PO SCH (21:00)
[2019-12-26] MEDS: QUEtiapine 25 MG TABLET. PO SCH (21:01)
[2019-12-26] MEDS: MIRTAZAPINE ODT 15 MG TAB.RAPDIS. PO SCH (21:02)
--- NOTE | 2019-12-26 21:18 | PDOC ---
Exam Note: Kwasi Note: Please also refer to the separate dictated note~for this date of service dictated separately.~Patient seen individually. Discussed the patient with Nursing staff reviewed the chart.~Reviewed interim history and current functioning. Reviewed vital signs,~Labs/ Radiology~and current medications noted below. Continue current treatment with the changes noted in the dictated addendum note Assessment: Vital Signs/I&O: Vital Signs Date Time Temp Pulse Resp B/P (MAP) Pulse Ox O2 Delivery O2 Flow Rate FiO2 12/26/19 16:08 98.3 52 19 124/72 (89) 96 12/25/19 16:11 Room Air I & O 12/25/19 12/25/19 12/26/19 15:00 23:00 07:00 Intake Total 480 ml 240 ml Balance 480 ml 240 ml Labs: Laboratory Tests Test 12/26/19 07:14 12/26/19 07:38 12/26/19 11:37 12/26/19 12:09 White Blood Count 8.7 x10^3/uL (4.0-11.0) Red Blood Count 4.55 x10^6/uL (4.30-5.70) Hemoglobin 15.0 g/dL (13.0-17.5) Hematocrit 44.6 % (39.0-53.0) Mean Corpuscular Volume 98 fL (79-100) Mean Corpuscular Hemoglobin 33 pg (25-35) Mean Corpuscular Hemoglobin Concent 34 g/dL (31-37) Red Cell Distribution Width 14.0 % (11.5-14.5) Platelet Count 191 x10^3/uL (140-400) Neutrophils (%) (Auto) 50 % (31-73) Lymphocytes (%) (Auto) 31 % (24-48) Monocytes (%) (Auto) 17 % (0-9) H Eosinophils (%) (Auto) 1 % (0-3) Basophils (%) (Auto) 1 % (0-3) Neutrophils # (Auto) 4.3 x10^3uL (1.8-7.7) Lymphocytes # (Auto) 2.7 x10^3/uL (1.0-4.8) Monocytes # (Auto) 1.5 x10^3/uL (0.0-1.1) H Eosinophils # (Auto) 0.1 x10^3/uL (0.0-0.7) Basophils # (Auto) 0.0 x10^3/uL (0.0-0.2) Segmented Neutrophils % 49 % (35-66) Lymphocytes % 37 % (24-48) Monocytes % 13 % (0-10) H Eosinophils % 1 % (0-5) Platelet Estimate Adequate (ADEQUATE) Sodium Level 136 mmol/L (136-145) Potassium Level 3.7 mmol/L (3.5-5.1) Chloride Level 102 mmol/L (98-107) Carbon Dioxide Level 24 mmol/L (21-32) Anion Gap 10 (6-14) Blood Urea Nitrogen 12 mg/dL (8-26) Creatinine 0.7 mg/dL (0.7-1.3) Estimated GFR (Cockcroft-Gault) 116.2 BUN/Creatinine Ratio 17 (6-20) Glucose Level 165 mg/dL (70-99) H Calcium Level 8.6 mg/dL (8.5-10.1) Total Bilirubin 0.4 mg/dL (0.2-1.0) Aspartate Amino Transferase (AST) 9 U/L (15-37) L Alanine Aminotransferase (ALT) 19 U/L (16-63) Alkaline Phosphatase 57 U/L (46-116) Total Protein 6.7 g/dL (6.4-8.2) Albumin 2.6 g/dL (3.4-5.0) L Albumin/Globulin Ratio 0.6 (1.0-1.7) L Valproic Acid Level 56 mcg/mL (50-100) Valproic Acid Last Dose Date 12/25/19 Valproic Acid Last Dose Time 2100 Glucose (Fingerstick) 186 mg/dL (70-99) H 197 mg/dL (70-99) H Clostridioides difficile Toxin (PCR) Negative (NEGATIVE) Test 12/26/19 19:02 Glucose (Fingerstick) 224 mg/dL (70-99) H Current Medications: Meds: Current Medications Medications (Trade) Dose Ordered Sig/Samm Route PRN Reason Start Time Stop Time Status Last Admin Dose Admin Valproic Acid (Depakene) 750 mg QHS PO 12/26/19 21:00 12/26/19 21:00 I have reviewed the current psychotropics carefully including drug interactions. Risk benefit ratio favors no change other than as noted in my dictated progress note. Diagnosis: Problems: (1) Schizoaffective disorder, bipolar type (2) Impulse control disorder, unspecified (3) Anxiety disorder, unspecified (4) Bipolar disorder, curr episode mixed, severe, with psychotic features CAREN MALIK MD Dec 26, 2019 21:18
[2019-12-27 05:59] VITALS: BP 121/70
--- NOTE | 2019-12-27 08:07 | PDOC ---
Exam Note: Kwasi Note: This note is a late entry for 12/25/2019 covers elements not covered in my initial note. Subjective: The patient was reviewed on telehealth rounds in the evening of 12/25/2019 with Musa GAUTAM. Discussed with nursing staff, reviewed the chart. He slept 8-1/4 hours previous night. He was agitated with cares in the morning, then was placed in the wheelchair, and then did better. Review of Systems: Ambulation impaired in wheelchair. No CV, , pulmonary, eye system symptoms on review. Mental Status Exam: The patient is oriented to himself and situation. He is obsessing about wanting to be discharged. I addressed this with him. Speech has some latency. Often response is monosyllabic. No suicidal or homicidal ideation. He is somewhat distractible, paranoid. Laboratory Data: Reviewed. Impression: Schizoaffective disorder bipolar type mixed with psychotic features. Anxiety disorder unspecified. Impulse control disorder unspecified. Plan: No change from initial note. Assessment: Vital Signs/I&O: Vital Signs Date Time Temp Pulse Resp B/P (MAP) Pulse Ox O2 Delivery O2 Flow Rate FiO2 12/27/19 05:59 98.4 47 18 121/70 (87) 91 12/25/19 16:11 Room Air I & O 12/26/19 12/26/19 12/27/19 15:00 23:00 07:00 Intake Total 440 ml Balance 440 ml Labs: Laboratory Tests Test 12/26/19 11:37 12/26/19 12:09 12/26/19 19:02 12/27/19 07:46 Clostridioides difficile Toxin (PCR) Negative (NEGATIVE) Glucose (Fingerstick) 197 mg/dL (70-99) H 224 mg/dL (70-99) H 174 mg/dL (70-99) H Current Medications: Meds: Current Medications Medications (Trade) Dose Ordered Sig/Samm Route PRN Reason Start Time Stop Time Status Last Admin Dose Admin Valproic Acid (Depakene) 750 mg QHS PO 12/26/19 21:00 12/26/19 21:00 I have reviewed the current psychotropics carefully including drug interactions. Risk benefit ratio favors no change other than as noted in my dictated progress note. Diagnosis: Problems: (1) Schizoaffective disorder, bipolar type (2) Impulse control disorder, unspecified (3) Anxiety disorder, unspecified (4) Bipolar disorder, curr episode mixed, severe, with psychotic features CAREN MALIK MD Dec 27, 2019 08:07
--- NOTE | 2019-12-27 08:23 | PDOC ---
Exam Note: Kwasi Note: This note is a late entry for 12/26/2019 covers elements not covered in my initial note. Subjective: The patient was seen face to face in the evening of 12/26/2019 with Joycelyn GAUTAM. Discussed with nursing staff, reviewed the chart. Valproic acid level is 56 on Depakote Sprinkle 500 mg b.i.d. We will increase to 500 a.m. and 750 mg h.s. Check CBC, CMP, valproic acid level in 3 days. Review of Systems: Ambulation impaired in wheelchair. No CV, , pulmonary, eye system symptoms on review. Mental Status Exam: The patient is oriented to himself and situation. Speech has some latency, coherent. Often response is monosyllabic. Abstraction is fair. Computation is impaired. Language function is intact. Attention span is short. He is still somewhat paranoid, less so than before. Laboratory Data: Reviewed. Impression: Schizoaffective disorder bipolar type mixed with psychotic features. Anxiety disorder unspecified. Impulse control disorder unspecified. Plan: Increase Depakote as above. Follow labs and valproic acid level in 3 days. Rest unchanged. Assessment: Vital Signs/I&O: Vital Signs Date Time Temp Pulse Resp B/P (MAP) Pulse Ox O2 Delivery O2 Flow Rate FiO2 12/27/19 05:59 98.4 47 18 121/70 (87) 91 12/25/19 16:11 Room Air I & O 12/26/19 12/26/19 12/27/19 14:59 22:59 06:59 Intake Total 440 ml Balance 440 ml Labs: Laboratory Tests Test 12/26/19 11:37 12/26/19 12:09 12/26/19 19:02 12/27/19 07:46 Clostridioides difficile Toxin (PCR) Negative (NEGATIVE) Glucose (Fingerstick) 197 mg/dL (70-99) H 224 mg/dL (70-99) H 174 mg/dL (70-99) H Current Medications: Meds: Current Medications Medications (Trade) Dose Ordered Sig/Samm Route PRN Reason Start Time Stop Time Status Last Admin Dose Admin Valproic Acid (Depakene) 750 mg QHS PO 12/26/19 21:00 12/26/19 21:00 I have reviewed the current psychotropics carefully including drug interactions. Risk benefit ratio favors no change other than as noted in my dictated progress note. Diagnosis: Problems: (1) Schizoaffective disorder, bipolar type (2) Impulse control disorder, unspecified (3) Anxiety disorder, unspecified (4) Bipolar disorder, curr episode mixed, severe, with psychotic features CAREN MALIK MD Dec 27, 2019 08:23
[2019-12-27] MEDS ORDERED: DIVALPROEX 125 MG CAP.SPRINK PO SCH (09:00)
[2019-12-27] MEDS: metFORMIN 500 MG TABLET PO SCH ×2 (09:57→17:43)
[2019-12-27] MEDS: CITALOPRAM 20 MG TABLET. PO SCH (09:58)
[2019-12-27] MEDS: clonazePAM 0.5 MG TABLET PO SCH ×3 (09:58→21:12)
[2019-12-27] MEDS: VALPROIC ACID 250 MG CAPSULE. PO SCH ×2 (09:58→21:08)
[2019-12-27 16:09] VITALS: BP 113/70
--- NOTE | 2019-12-27 20:47 | PDOC ---
Exam Note: Kwasi Note: Please also refer to the separate dictated note~for this date of service dictated separately.~Patient seen individually. Discussed the patient with Nursing staff reviewed the chart.~Reviewed interim history and current functioning. Reviewed vital signs,~Labs/ Radiology~and current medications noted below. Continue current treatment with the changes noted in the dictated addendum note Assessment: Vital Signs/I&O: Vital Signs Date Time Temp Pulse Resp B/P (MAP) Pulse Ox O2 Delivery O2 Flow Rate FiO2 12/27/19 16:09 98.0 74 18 113/70 (84) 96 12/25/19 16:11 Room Air I & O 12/26/19 12/26/19 12/27/19 15:00 23:00 07:00 Intake Total 440 ml Balance 440 ml Labs: Laboratory Tests Test 12/27/19 07:46 12/27/19 12:00 12/27/19 16:56 12/27/19 19:11 Glucose (Fingerstick) 174 mg/dL (70-99) H 163 mg/dL (70-99) H 129 mg/dL (70-99) H 176 mg/dL (70-99) H Current Medications: Meds: Current Medications Medications (Trade) Dose Ordered Sig/Samm Route PRN Reason Start Time Stop Time Status Last Admin Dose Admin Valproic Acid (Depakene) 500 mg DAILY PO 12/27/19 09:00 12/27/19 09:58 Valproic Acid (Depakene) 750 mg QHS PO 12/26/19 21:00 12/26/19 21:00 I have reviewed the current psychotropics carefully including drug interactions. Risk benefit ratio favors no change other than as noted in my dictated progress note. Diagnosis: Problems: (1) Schizoaffective disorder, bipolar type (2) Impulse control disorder, unspecified (3) Anxiety disorder, unspecified (4) Bipolar disorder, curr episode mixed, severe, with psychotic features CAREN MALIK MD Dec 27, 2019 20:47
[2019-12-27] MEDS: MIRTAZAPINE ODT 15 MG TAB.RAPDIS. PO SCH (21:08)
[2019-12-27] MEDS: QUEtiapine 25 MG TABLET. PO SCH (21:09)
[2019-12-28 05:45] VITALS: BP 110/68
[2019-12-28] MEDS: clonazePAM 0.5 MG TABLET PO SCH ×2 (08:59→14:00)
[2019-12-28] MEDS: CITALOPRAM 20 MG TABLET. PO SCH (08:59)
[2019-12-28] MEDS: metFORMIN 500 MG TABLET PO SCH ×2 (08:59→17:09)
[2019-12-28] MEDS: VALPROIC ACID 250 MG CAPSULE. PO SCH ×2 (08:59→20:54)
[2019-12-28 16:39] VITALS: BP 127/81
--- NOTE | 2019-12-28 20:43 | PDOC ---
Exam Note: Kwasi Note: Please also refer to the separate dictated note~for this date of service dictated separately.~Patient seen individually. Discussed the patient with Nursing staff reviewed the chart.~Reviewed interim history and current functioning. Reviewed vital signs,~Labs/ Radiology~and current medications noted below. Continue current treatment with the changes noted in the dictated addendum note Assessment: Vital Signs/I&O: Vital Signs Date Time Temp Pulse Resp B/P (MAP) Pulse Ox O2 Delivery O2 Flow Rate FiO2 12/28/19 16:39 97.3 74 17 127/81 (96) 95 12/25/19 16:11 Room Air I & O 12/27/19 12/27/19 12/28/19 15:00 23:00 07:00 Intake Total 240 ml 240 ml Balance 240 ml 240 ml Labs: Laboratory Tests Test 12/28/19 07:47 12/28/19 12:10 12/28/19 16:56 12/28/19 19:08 Glucose (Fingerstick) 142 mg/dL (70-99) H 120 mg/dL (70-99) H 204 mg/dL (70-99) H 204 mg/dL (70-99) H Current Medications: I have reviewed the current psychotropics carefully including drug interactions. Risk benefit ratio favors no change other than as noted in my dictated progress note. Diagnosis: Problems: (1) Schizoaffective disorder, bipolar type (2) Impulse control disorder, unspecified (3) Anxiety disorder, unspecified (4) Bipolar disorder, curr episode mixed, severe, with psychotic features CAREN MALIK MD Dec 28, 2019 20:43
[2019-12-28] MEDS: MIRTAZAPINE ODT 15 MG TAB.RAPDIS. PO SCH (20:55)
[2019-12-28] MEDS: QUEtiapine 25 MG TABLET. PO SCH (20:58)
[2019-12-29 06:43] VITALS: BP 112/71
--- NOTE | 2019-12-29 07:02 | PDOC ---
Exam Note: Kwasi Note: This note is a late entry for 12/27/2019 covers elements not covered in my initial note. Subjective: The patient was seen face to face in the evening of 12/27/2019 with Peggy GAUTAM. Discussed with nursing staff, reviewed the chart. The patient slept 8 hours previous night. He did well previous night and during the day. UA shows 50,000 Enterococcus. He had stage 2 lesion on his sacrum. We will defer to Dr. Ross. Stool is negative for C. difficile. He gets somewhat anxious, restless, agitated about his mask but does seem to have a sense of humor. Reportedly he has a past history of drug and alcohol abuse, sober for 30 years. Review of Systems: Ambulation impaired in wheelchair. No CV, , pulmonary, eye system symptoms on review. Mental Status Exam: The patient is reasonably alert and oriented. Speech is coherent. Often response is monosyllabic. Abstraction is fair. Computation is impaired. Language function is intact. Attention span is short. He is still somewhat paranoid, less so than before. Laboratory Data: Reviewed. Impression: Schizoaffective disorder bipolar type mixed with psychotic features. Anxiety disorder unspecified. Impulse control disorder unspecified. Plan: No change from initial note. Assessment: Vital Signs/I&O: Vital Signs Date Time Temp Pulse Resp B/P (MAP) Pulse Ox O2 Delivery O2 Flow Rate FiO2 12/29/19 06:43 98.3 56 16 112/71 (85) 92 Room Air I & O 12/28/19 12/28/19 12/29/19 15:00 23:00 07:00 Intake Total 480 ml 480 ml Balance 480 ml 480 ml Labs: Laboratory Tests Test 12/28/19 07:47 12/28/19 12:10 12/28/19 16:56 12/28/19 19:08 Glucose (Fingerstick) 142 mg/dL (70-99) H 120 mg/dL (70-99) H 204 mg/dL (70-99) H 204 mg/dL (70-99) H Current Medications: Meds: Current Medications Medications (Trade) Dose Ordered Sig/Samm Route PRN Reason Start Time Stop Time Status Last Admin Dose Admin Quetiapine Fumarate (SEROquel) 12.5 mg 0900,2100 PO 12/29/19 09:00 12/28/19 20:58 I have reviewed the current psychotropics carefully including drug interactions. Risk benefit ratio favors no change other than as noted in my dictated progress note. Diagnosis: Problems: (1) Schizoaffective disorder, bipolar type (2) Impulse control disorder, unspecified (3) Anxiety disorder, unspecified (4) Bipolar disorder, curr episode mixed, severe, with psychotic features CAREN MALIK MD Dec 29, 2019 07:02
[2019-12-29 07:34] LABS: BASO % 0 % (0-3); EOS # 0.1 x10^3/uL (0.0-0.7); EOS % 2 % (0-3); HEMATOCRIT 43.3 % (39.0-53.0); HEMOGLOBIN 14.2 g/dL (13.0-17.5); LYMPH # 3.3 x10^3/uL (1.0-4.8); LYMPH % 44 % (24-48); MEAN CORPUSCULAR HEMOGLOBIN 32 pg (25-35); MEAN CORPUSCULAR HGB CONC 33 g/dL (31-37); MEAN CORPUSCULAR VOLUME 98 fL (79-100); MONO % 13 % (0-9); NEUT # 3.1 x10^3uL (1.8-7.7); NEUT % 41 % (31-73); PLATELET COUNT 219 x10^3/uL (140-400); RED BLOOD COUNT 4.43 x10^6/uL (4.30-5.70); RED CELL DISTRIBUTION WIDTH 14.2 % (11.5-14.5); WHITE BLOOD COUNT 7.6 x10^3/uL (4.0-11.0)
--- NOTE | 2019-12-29 07:34 | PDOC ---
Exam Note: Kwasi Note: This note is a late entry for 12/28/2019 covers elements not covered in my initial note. Subjective: The patient was seen face to face in the evening of 12/28/2019 with Joycelyn GAUTAM. Discussed with nursing staff, reviewed the chart. He slept 6-1/2 hours previous night. The patient has been somewhat withdrawn, obsessed about wanting to be discharged. Review of Systems: Ambulation impaired in wheelchair. No CV, , pulmonary, eye system symptoms on review. Mental Status Exam: The patient is oriented to himself and situation. Speech has some latency, coherent. Often response is monosyllabic. Abstraction is fair. Computation is impaired. Language function is intact. Attention span is short. Mood and affect withdrawn. Laboratory Data: Reviewed. Impression: Schizoaffective disorder bipolar type mixed with psychotic features. Anxiety disorder unspecified. Impulse control disorder unspecified. Plan: The patient is on Klonopin 0.25 mg t.i.d. We will stop the morning dosage and in place of it add Seroquel 12.5 mg a.m. Continue Seroquel 12.5 mg h.s. We may taper the Klonopin further later since the Klonopin as benzodiazepine should be causing paradoxical disinhibition. Maintain Lexapro 20 mg a day, Remeron 7.5 mg h.s., Depakote 500 mg b.i.d., and level is therapeutic at 53 and Zyprexa p.r.n. Assessment: Vital Signs/I&O: Vital Signs Date Time Temp Pulse Resp B/P (MAP) Pulse Ox O2 Delivery O2 Flow Rate FiO2 12/29/19 06:43 98.3 56 16 112/71 (85) 92 Room Air I & O 12/28/19 12/28/19 12/29/19 15:00 23:00 07:00 Intake Total 480 ml 480 ml Balance 480 ml 480 ml Labs: Laboratory Tests Test 12/28/19 07:47 12/28/19 12:10 12/28/19 16:56 12/28/19 19:08 Glucose (Fingerstick) 142 mg/dL (70-99) H 120 mg/dL (70-99) H 204 mg/dL (70-99) H 204 mg/dL (70-99) H Current Medications: Meds: Current Medications Medications (Trade) Dose Ordered Sig/Samm Route PRN Reason Start Time Stop Time Status Last Admin Dose Admin Quetiapine Fumarate (SEROquel) 12.5 mg 0900,2100 PO 12/29/19 09:00 12/28/19 20:58 I have reviewed the current psychotropics carefully including drug interactions. Risk benefit ratio favors no change other than as noted in my dictated progress note. Diagnosis: Problems: (1) Schizoaffective disorder, bipolar type (2) Impulse control disorder, unspecified (3) Anxiety disorder, unspecified (4) Bipolar disorder, curr episode mixed, severe, with psychotic features CAREN MALIK MD Dec 29, 2019 07:34
[2019-12-29 07:42] LABS: ALBUMIN 2.6 g/dL (3.4-5.0); ALBUMIN/GLOBULIN RATIO 0.7 (1.0-1.7); ALK PHOS 56 U/L (46-116); ALT (SGPT) 16 U/L (16-63); ANION GAP 9 (6-14); AST (SGOT) 7 U/L (15-37); BLOOD UREA NITROGEN 12 mg/dL (8-26); BUN/CREATININE RATIO 20 (6-20); CALCIUM 8.4 mg/dL (8.5-10.1); CARBON DIOXIDE 26 mmol/L (21-32); CHLORIDE 102 mmol/L (98-107); CREATININE 0.6 mg/dL (0.7-1.3); GFR 138.9; GLUCOSE 134 mg/dL (70-99); POTASSIUM 3.6 mmol/L (3.5-5.1); SODIUM 137 mmol/L (136-145); TOTAL BILIRUBIN 0.2 mg/dL (0.2-1.0); TOTAL PROTEIN 6.5 g/dL (6.4-8.2)
[2019-12-29 07:47] LABS: VAL ACID 81 mcg/mL (50-100)
[2019-12-29] MEDS: metFORMIN 500 MG TABLET PO SCH ×2 (09:42→17:14)
[2019-12-29] MEDS: VALPROIC ACID 250 MG CAPSULE. PO SCH ×2 (09:43→19:47)
[2019-12-29] MEDS: CITALOPRAM 20 MG TABLET. PO SCH (09:43)
[2019-12-29] MEDS: clonazePAM 0.5 MG TABLET PO SCH ×2 (13:04→19:49)
--- NOTE | 2019-12-29 14:10 | TX PLAN ---
Interdisciplinary Tx Plan Admission Information Dec 22, 2019 at 22:05 Legal Status (on Admission): Voluntary DPOA/Guardian Name: Self Sign Other Contact Name: Dr. Lola Chou Other Contact Verified Code Status: Full Code Allergies: Coded Allergies: egg (Verified Allergy, Unknown, 12/21/19) Estimated Length of Stay: 14 Diagnoses Primary Diagnosis: Schizoafective d/o, bipolar type, with acute exacerbation Reasons for Admission: Aggressive, Agitated, Angry, Grief, Poor impulse control Problem in Patient's Words: Per Pavan, "I got aggressive, I gave them the bird." Additional Admission Comments: Per intake record, throwing things in his room, mood lability, explsive, vebaly abusive, yelling/screaming, running his wheelchair into things, defacated on th floor, demanding Problems Active Problems: mood lability, explosive temper, verbally abusive, yelling screaming, running w/c into things, defecated on the floor, demanding Inactive Problems: Adequate intake of foods has been cooperative with medication administration Pt Strengths/Limitations Ability for Smith: Poor Cognitive Functioning/Ability: Fair Communication Skills/Ability: Fair Financial Resources: Fair Insight/Judgement: Fair Intellectual Ability: Fair Physical Health: Fair Social Skills: Fair Stability in Family: Poor Verbal Skills: Fair Discharge Criteria Discharge Criteria: Adequate arrangements @DC, Improved behavior, Improved mood/thought Preliminary Discharge Plan Preliminary DC Plan: Long-Term Other Arrangements: [facility] Special Precautions Special Precautions: Agitation/Assault Fall Risk: High Initial D/C Plan To return to [facility] Identified Discharge Needs: F/U with PCP, Psychiatrist, arrange for counseling if available. Currently Utilized Resources Currently Utilized Resources/P: PCP, APNP psych 24 hour care/oversight by [facility] Referrals Community Resources: Therapy referral if available at [facility] Identified Problems/Hx/Goals Objectives/Short-Term Goals Short Term Goals: Control abnormal behavior, Dec. Aggression, Dec. Symp. Depression, Medication Stabilization, Monitor Med Effects, Prevent Deteri oration, Promote Coping Skill Short Term Goals in Patient's: "To get out and back to [facility]." Interventions/Frequency Staff Interventions/Frequency&: Nursing to provide routine checks, medication administration, and adl support. Psychiatry to see three times a week. SW to visit twice weekly. Will encourage SW and recerational therapy group involvement. 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 Pavan reports he was eligible for disability at the age of 20 due to seizure dx. Social: Pavan enjoyed riding motorcycles, rock and roll music, TV, Bingo, and enjoys Education: Pavan graduated high school. Community Follow-up PCP, Psychiatry, Counseling Treatment Plan Explained Patient/Crater And Packer had this treatment plan explained to him/her as indicated by the signature below and has been given the opportunity to ask questions and make suggestions: Date: Patient/Crater And Packer Signature: Status Update Update WEEKLY UPDATE/NOTE: Pavan is % of meal intakes and 7.5 hours of sleep at night. He has been cooperative and compliant with nursing assessments and medication administration. He has allowed staff to support with adl's and his hair and lemus have been groomed. Pavan's Depakote is now within therapeutic range, 81. Klonipin is being adjusted down and Seroquel has been added. Pavan has begun to attend SW and recreational therapy groups. He verbalizes the desire to return to [facility] and SW has had bk discussion about his behaviors at the facility which if continued, may not allow for him to continue to be a resident there as the facility has a right to give a thirty day notice of discharge. SW encouraged Pavan to work with staff at [facility] as he expresses placement at [facility] is better than the facility that he had previously resided at. SW will continue to encourage group attendance. HERMELINDA DIOP Dec 29, 2019 14:10
[2019-12-29 16:22] VITALS: BP 120/73
[2019-12-29] MEDS: MIRTAZAPINE ODT 15 MG TAB.RAPDIS. PO SCH (19:48)
[2019-12-29] MEDS: QUEtiapine 25 MG TABLET. PO SCH (19:48)
--- NOTE | 2019-12-29 20:57 | PDOC ---
Exam Note: Kwasi Note: Please also refer to the separate dictated note~for this date of service dictated separately.~Patient seen individually. Discussed the patient with Nursing staff reviewed the chart.~Reviewed interim history and current functioning. Reviewed vital signs,~Labs/ Radiology~and current medications noted below. Continue current treatment with the changes noted in the dictated addendum note Assessment: Vital Signs/I&O: Vital Signs Date Time Temp Pulse Resp B/P (MAP) Pulse Ox O2 Delivery O2 Flow Rate FiO2 12/29/19 16:22 97.6 49 19 120/73 (89) 95 12/29/19 06:43 Room Air I & O 12/28/19 12/28/19 12/29/19 15:00 23:00 07:00 Intake Total 480 ml 480 ml Balance 480 ml 480 ml Labs: Laboratory Tests Test 12/29/19 06:58 12/29/19 08:35 12/29/19 12:18 White Blood Count 7.6 x10^3/uL (4.0-11.0) Red Blood Count 4.43 x10^6/uL (4.30-5.70) Hemoglobin 14.2 g/dL (13.0-17.5) Hematocrit 43.3 % (39.0-53.0) Mean Corpuscular Volume 98 fL (79-100) Mean Corpuscular Hemoglobin 32 pg (25-35) Mean Corpuscular Hemoglobin Concent 33 g/dL (31-37) Red Cell Distribution Width 14.2 % (11.5-14.5) Platelet Count 219 x10^3/uL (140-400) Neutrophils (%) (Auto) 41 % (31-73) Lymphocytes (%) (Auto) 44 % (24-48) Monocytes (%) (Auto) 13 % (0-9) H Eosinophils (%) (Auto) 2 % (0-3) Basophils (%) (Auto) 0 % (0-3) Neutrophils # (Auto) 3.1 x10^3uL (1.8-7.7) Lymphocytes # (Auto) 3.3 x10^3/uL (1.0-4.8) Monocytes # (Auto) 1.0 x10^3/uL (0.0-1.1) Eosinophils # (Auto) 0.1 x10^3/uL (0.0-0.7) Basophils # (Auto) 0.0 x10^3/uL (0.0-0.2) Sodium Level 137 mmol/L (136-145) Potassium Level 3.6 mmol/L (3.5-5.1) Chloride Level 102 mmol/L (98-107) Carbon Dioxide Level 26 mmol/L (21-32) Anion Gap 9 (6-14) Blood Urea Nitrogen 12 mg/dL (8-26) Creatinine 0.6 mg/dL (0.7-1.3) L Estimated GFR (Cockcroft-Gault) 138.9 BUN/Creatinine Ratio 20 (6-20) Glucose Level 134 mg/dL (70-99) H Calcium Level 8.4 mg/dL (8.5-10.1) L Total Bilirubin 0.2 mg/dL (0.2-1.0) Aspartate Amino Transferase (AST) 7 U/L (15-37) L Alanine Aminotransferase (ALT) 16 U/L (16-63) Alkaline Phosphatase 56 U/L (46-116) Total Protein 6.5 g/dL (6.4-8.2) Albumin 2.6 g/dL (3.4-5.0) L Albumin/Globulin Ratio 0.7 (1.0-1.7) L Valproic Acid Level 81 mcg/mL (50-100) Valproic Acid Last Dose Date 12/28/19 Valproic Acid Last Dose Time 2100 Glucose (Fingerstick) 150 mg/dL (70-99) H 236 mg/dL (70-99) H Current Medications: Meds: Current Medications Medications (Trade) Dose Ordered Sig/Samm Route PRN Reason Start Time Stop Time Status Last Admin Dose Admin Clonazepam (KlonoPIN) 0.25 mg 1300,2100 PO 12/29/19 13:00 12/30/19 23:50 12/29/19 19:49 Quetiapine Fumarate (SEROquel) 12.5 mg 0900,2100 PO 12/29/19 09:00 12/29/19 19:48 I have reviewed the current psychotropics carefully including drug interactions. Risk benefit ratio favors no change other than as noted in my dictated progress note. Diagnosis: Problems: (1) Schizoaffective disorder, bipolar type (2) Impulse control disorder, unspecified (3) Anxiety disorder, unspecified (4) Bipolar disorder, curr episode mixed, severe, with psychotic features CAREN MALIK MD Dec 29, 2019 20:57
[2019-12-30 06:42] VITALS: BP 119/69
[2019-12-30] MEDS: VALPROIC ACID 250 MG CAPSULE. PO SCH ×2 (08:40→19:58)
[2019-12-30] MEDS: metFORMIN 500 MG TABLET PO SCH ×2 (08:40→17:04)
[2019-12-30] MEDS: QUEtiapine 25 MG TABLET. PO SCH ×2 (08:41→19:56)
[2019-12-30] MEDS: CITALOPRAM 20 MG TABLET. PO SCH (08:41)
[2019-12-30] MEDS: clonazePAM 0.5 MG TABLET PO SCH ×2 (12:52→19:57)
[2019-12-30 16:01] VITALS: BP 129/75
[2019-12-30] MEDS: MIRTAZAPINE ODT 15 MG TAB.RAPDIS. PO SCH (19:56)
--- NOTE | 2019-12-30 21:03 | PDOC ---
Exam Note: Kwasi Note: Please also refer to the separate dictated note~for this date of service dictated separately.~Patient seen individually. Discussed the patient with Nursing staff reviewed the chart.~Reviewed interim history and current functioning. Reviewed vital signs,~Labs/ Radiology~and current medications noted below. Continue current treatment with the changes noted in the dictated addendum note Assessment: Vital Signs/I&O: Vital Signs Date Time Temp Pulse Resp B/P (MAP) Pulse Ox O2 Delivery O2 Flow Rate FiO2 12/30/19 16:01 97.6 49 16 129/75 (93) 94 12/30/19 06:42 Room Air I & O 12/29/19 12/29/19 12/30/19 14:59 22:59 06:59 Intake Total 420 ml 240 ml 120 ml Balance 420 ml 240 ml 120 ml Labs: Laboratory Tests Test 12/30/19 07:47 Glucose (Fingerstick) 143 mg/dL (70-99) H Current Medications: I have reviewed the current psychotropics carefully including drug interactions. Risk benefit ratio favors no change other than as noted in my dictated progress note. Diagnosis: Problems: (1) Schizoaffective disorder, bipolar type (2) Impulse control disorder, unspecified (3) Anxiety disorder, unspecified (4) Bipolar disorder, curr episode mixed, severe, with psychotic features CAREN MALIK MD Dec 30, 2019 21:03
[2019-12-31 06:00] VITALS: BP 105/62
[2019-12-31] MEDS: VALPROIC ACID 250 MG CAPSULE. PO SCH ×2 (09:01→20:08)
[2019-12-31] MEDS: QUEtiapine 25 MG TABLET. PO SCH ×3 (09:02→20:09)
[2019-12-31] MEDS: metFORMIN 500 MG TABLET PO SCH ×2 (09:02→17:15)
[2019-12-31] MEDS: CITALOPRAM 20 MG TABLET. PO SCH (09:02)
[2019-12-31 14:39] VITALS: BP 114/72
[2019-12-31] MEDS: MIRTAZAPINE ODT 15 MG TAB.RAPDIS. PO SCH (20:09)
[2019-12-31] MEDS: clonazePAM 0.5 MG TABLET PO SCH (20:11)
--- NOTE | 2019-12-31 20:56 | PDOC ---
Exam Note: Kwasi Note: Please also refer to the separate dictated note~for this date of service dictated separately.~Patient seen individually. Discussed the patient with Nursing staff reviewed the chart.~Reviewed interim history and current functioning. Reviewed vital signs,~Labs/ Radiology~and current medications noted below. Continue current treatment with the changes noted in the dictated addendum note Assessment: Vital Signs/I&O: Vital Signs Date Time Temp Pulse Resp B/P (MAP) Pulse Ox O2 Delivery O2 Flow Rate FiO2 12/31/19 14:39 96.9 71 19 114/72 (86) 96 12/31/19 06:00 Room Air I & O 12/30/19 12/30/19 12/31/19 15:00 23:00 07:00 Intake Total 450 ml 440 ml Balance 450 ml 440 ml Labs: Laboratory Tests Test 12/31/19 07:47 Glucose (Fingerstick) 177 mg/dL (70-99) H Current Medications: Meds: Current Medications Medications (Trade) Dose Ordered Sig/Samm Route PRN Reason Start Time Stop Time Status Last Admin Dose Admin Clonazepam (KlonoPIN) 0.25 mg HS PO 12/31/19 21:00 12/31/19 20:11 Quetiapine Fumarate (SEROquel) 12.5 mg 1300 PO 12/31/19 13:00 12/31/19 13:40 I have reviewed the current psychotropics carefully including drug interactions. Risk benefit ratio favors no change other than as noted in my dictated progress note. Diagnosis: Problems: (1) Schizoaffective disorder, bipolar type (2) Impulse control disorder, unspecified (3) Anxiety disorder, unspecified (4) Bipolar disorder, curr episode mixed, severe, with psychotic features CAREN MALIK MD Dec 31, 2019 20:56
[2020-01-01 06:40] VITALS: BP 119/73
--- NOTE | 2020-01-01 07:24 | PDOC ---
Exam Note: Kwasi Note: This note is a late entry for 12/29/2019 covers elements not covered in my initial note. Subjective: The patient was seen face to face in the morning of 12/29/2019 for treatment team meeting with Latia Montero Nikki (social worker psychiatric), Nathalie, activity therapy staff, and Peggy RN. Discussed with nursing staff, reviewed the chart. He slept 7-1/2 hours previous night. Appetite is 75%. Overall the patient has been cooperative, had an altercation with another patient on the unit, one of whom was quite demented, refusing groups. Reviewed his past history, history of methamphetamine abuse and alcohol abuse, intermittently increasingly agitated, refusing Nicorette patch. Valproic acid level therapeutic at 81. Review of Systems: Ambulation impaired in wheelchair. No CV, , pulmonary, eye system symptoms on review. Mental Status Exam: The patient is oriented to himself and situation. He is not very verbal, ruminating about discharge plans, which we addressed. Speech coherent, has some latency. Often response is monosyllabic. Abstraction is fair. Computation is impaired. Language function is intact. Attention span is short. Laboratory Data: Reviewed. Impression: Schizoaffective disorder bipolar type mixed with psychotic features. Anxiety disorder unspecified. Impulse control disorder unspecified. Plan: No change from initial note. Assessment: Vital Signs/I&O: Vital Signs Date Time Temp Pulse Resp B/P (MAP) Pulse Ox O2 Delivery O2 Flow Rate FiO2 01/01/20 06:40 97.5 52 16 119/73 (88) 93 12/31/19 06:00 Room Air I & O 12/31/19 12/31/19 01/01/20 15:00 23:00 07:00 Intake Total 240 ml 720 ml Balance 240 ml 720 ml Labs: Laboratory Tests Test 12/31/19 07:47 01/01/20 07:18 Glucose (Fingerstick) 177 mg/dL (70-99) H 185 mg/dL (70-99) H Current Medications: Meds: Current Medications Medications (Trade) Dose Ordered Sig/Samm Route PRN Reason Start Time Stop Time Status Last Admin Dose Admin Clonazepam (KlonoPIN) 0.25 mg HS PO 12/31/19 21:00 12/31/19 20:11 Quetiapine Fumarate (SEROquel) 12.5 mg 1300 PO 12/31/19 13:00 12/31/19 13:40 I have reviewed the current psychotropics carefully including drug interactions. Risk benefit ratio favors no change other than as noted in my dictated progress note. Diagnosis: Problems: (1) Schizoaffective disorder, bipolar type (2) Impulse control disorder, unspecified (3) Anxiety disorder, unspecified (4) Bipolar disorder, curr episode mixed, severe, with psychotic features CAREN MALIK MD Jan 01, 2020 07:24
--- NOTE | 2020-01-01 07:39 | PDOC ---
Exam Note: Kwasi Note: This note is a late entry for 12/30/2019 covers elements not covered in my initial note. Subjective: The patient was seen face to face in the evening of 12/30/2019 with Joycelyn GAUTAM. Discussed with nursing staff, reviewed the chart. He slept 6-3/4 hours previous night. Valproic acid level is 81 on 12/28 therapeutic. He has been fairly appropriate, somewhat withdrawn, anxious at times, wanting to leave hospital and I addressed this with him individually. Review of Systems: Ambulation impaired in wheelchair. No CV, , pulmonary, eye system symptoms on review. Mental Status Exam: The patient is oriented to himself and situation. Speech has some latency, coherent. Often response is monosyllabic. Abstraction is fair. Computation is impaired. Language function is intact. Attention span is short. Mood and affect withdrawn. Laboratory Data: Reviewed. Impression: Schizoaffective disorder bipolar type mixed with psychotic features. Anxiety disorder unspecified. Impulse control disorder unspecified. Plan: No change from initial note. Assessment: Vital Signs/I&O: Vital Signs Date Time Temp Pulse Resp B/P (MAP) Pulse Ox O2 Delivery O2 Flow Rate FiO2 01/01/20 06:40 97.5 52 16 119/73 (88) 93 12/31/19 06:00 Room Air I & O 12/31/19 12/31/19 01/01/20 15:00 23:00 07:00 Intake Total 240 ml 720 ml Balance 240 ml 720 ml Labs: Laboratory Tests Test 12/31/19 07:47 01/01/20 07:18 Glucose (Fingerstick) 177 mg/dL (70-99) H 185 mg/dL (70-99) H Current Medications: Meds: Current Medications Medications (Trade) Dose Ordered Sig/Samm Route PRN Reason Start Time Stop Time Status Last Admin Dose Admin Clonazepam (KlonoPIN) 0.25 mg HS PO 12/31/19 21:00 12/31/19 20:11 Quetiapine Fumarate (SEROquel) 12.5 mg 1300 PO 12/31/19 13:00 12/31/19 13:40 I have reviewed the current psychotropics carefully including drug interactions. Risk benefit ratio favors no change other than as noted in my dictated progress note. Diagnosis: Problems: (1) Schizoaffective disorder, bipolar type (2) Impulse control disorder, unspecified (3) Anxiety disorder, unspecified (4) Bipolar disorder, curr episode mixed, severe, with psychotic features CAREN MALIK MD Jan 01, 2020 07:39
--- NOTE | 2020-01-01 07:58 | PDOC ---
Exam Note: Kwasi Note: This note is a late entry for 12/31/2019 covers elements not covered in my initial note. Subjective: The patient was seen face to face in the evening of 12/31/2019 with Joycelyn GAUTAM. Discussed with nursing staff, reviewed the chart. Valproic acid level wass 81 on 12/28 therapeutic. He has been fairly cooperative on the unit. Review of Systems: Ambulation impaired in wheelchair. No CV, , pulmonary, eye system symptoms on review. Mental Status Exam: The patient is oriented to himself and situation. He is quite fixated, obsessed about discharge plans. I addressed with him. Speech has some latency, coherent. Often response is monosyllabic. Abstraction is fair. Computation is impaired. Language function is intact. Attention span is short. Mood and affect withdrawn. Laboratory Data: Reviewed. Impression: Schizoaffective disorder bipolar type mixed with psychotic features. Anxiety disorder unspecified. Impulse control disorder unspecified. Plan: No change from initial note. Assessment: Vital Signs/I&O: Vital Signs Date Time Temp Pulse Resp B/P (MAP) Pulse Ox O2 Delivery O2 Flow Rate FiO2 01/01/20 06:40 97.5 52 16 119/73 (88) 93 12/31/19 06:00 Room Air I & O 12/31/19 12/31/19 01/01/20 15:00 23:00 07:00 Intake Total 240 ml 720 ml Balance 240 ml 720 ml Labs: Laboratory Tests Test 01/01/20 07:18 Glucose (Fingerstick) 185 mg/dL (70-99) H Current Medications: Meds: Current Medications Medications (Trade) Dose Ordered Sig/Samm Route PRN Reason Start Time Stop Time Status Last Admin Dose Admin Clonazepam (KlonoPIN) 0.25 mg HS PO 12/31/19 21:00 12/31/19 20:11 Quetiapine Fumarate (SEROquel) 12.5 mg 1300 PO 12/31/19 13:00 12/31/19 13:40 I have reviewed the current psychotropics carefully including drug interactions. Risk benefit ratio favors no change other than as noted in my dictated progress note. Diagnosis: Problems: (1) Schizoaffective disorder, bipolar type (2) Impulse control disorder, unspecified (3) Anxiety disorder, unspecified (4) Bipolar disorder, curr episode mixed, severe, with psychotic features HELENA,MAN M MD Jan 01, 2020 07:58
[2020-01-01] MEDS: CITALOPRAM 20 MG TABLET. PO SCH (10:05)
[2020-01-01] MEDS: metFORMIN 500 MG TABLET PO SCH ×2 (10:05→17:41)
[2020-01-01] MEDS: QUEtiapine 25 MG TABLET. PO SCH ×3 (10:05→20:16)
[2020-01-01] MEDS: VALPROIC ACID 250 MG CAPSULE. PO SCH ×2 (10:08→20:17)
[2020-01-01 15:55] VITALS: BP 119/76
[2020-01-01] MEDS: MIRTAZAPINE ODT 15 MG TAB.RAPDIS. PO SCH (20:15)
[2020-01-01] MEDS ORDERED: BISACODYL 10 MG SUPP.RECT PR PRN (20:15)
[2020-01-01] MEDS: clonazePAM 0.5 MG TABLET PO SCH (20:16)
--- NOTE | 2020-01-01 20:40 | PDOC ---
Exam Note: Kwasi Note: Please also refer to the separate dictated note~for this date of service dictated separately.~Patient seen individually. Discussed the patient with Nursing staff reviewed the chart.~Reviewed interim history and current functioning. Reviewed vital signs,~Labs/ Radiology~and current medications noted below. Continue current treatment with the changes noted in the dictated addendum note Assessment: Vital Signs/I&O: Vital Signs Date Time Temp Pulse Resp B/P (MAP) Pulse Ox O2 Delivery O2 Flow Rate FiO2 01/01/20 15:55 98.2 52 18 119/76 (90) 97 Room Air I & O 12/31/19 12/31/19 01/01/20 15:00 23:00 07:00 Intake Total 240 ml 720 ml Balance 240 ml 720 ml Labs: Laboratory Tests Test 01/01/20 07:18 Glucose (Fingerstick) 185 mg/dL (70-99) H Current Medications: Meds: Current Medications Medications (Trade) Dose Ordered Sig/Samm Route PRN Reason Start Time Stop Time Status Last Admin Dose Admin Clonazepam (KlonoPIN) 0.25 mg HS PO 12/31/19 21:00 01/01/20 20:16 I have reviewed the current psychotropics carefully including drug interactions. Risk benefit ratio favors no change other than as noted in my dictated progress note. Diagnosis: Problems: (1) Schizoaffective disorder, bipolar type (2) Impulse control disorder, unspecified (3) Anxiety disorder, unspecified (4) Bipolar disorder, curr episode mixed, severe, with psychotic features CAREN MALIK MD Jan 01, 2020 20:40
[2020-01-02 06:21] VITALS: BP 121/69
--- NOTE | 2020-01-02 07:56 | PDOC ---
Exam Note: Kwasi Note: This note is a late entry for 01/01/2020 covers elements not covered in my initial note. Subjective: The patient was seen face to face in the evening of 01/01/2020 with Peggy GAUTAM. Discussed with nursing staff, reviewed the chart. The patient slept 6-1/4 hours previous night. He has been obsessed, anxious, repetitive of not wanting to go home. Review of Systems: Ambulation impaired in wheelchair. No CV, , pulmonary, eye system symptoms on review. Mental Status Exam: The patient is oriented to himself and situation. I met with him individually. Speech coherent. Abstraction is fair. Computation is impaired. Language function is intact. Attention span is short. Mood and aff ect withdrawn. Laboratory Data: Reviewed. Impression: Schizoaffective disorder bipolar type mixed with psychotic features. Anxiety disorder unspecified. Impulse control disorder unspecified. Plan: No change from initial note. Assessment: Vital Signs/I&O: Vital Signs Date Time Temp Pulse Resp B/P (MAP) Pulse Ox O2 Delivery O2 Flow Rate FiO2 01/02/20 06:21 97.9 52 14 121/69 (86) 94 01/01/20 15:55 Room Air I & O0 01/01/20 01/01/20 01/02/20 15:00 23:00 07:00 Intake Total 240 ml 240 ml 240 ml Balance 240 ml 240 ml 240 ml Current Medications: Meds: Current Medications Medications (Trade) Dose Ordered Sig/Samm Route PRN Reason Start Time Stop Time Status Last Admin Dose Admin Bisacodyl (Dulcolax Supp) 10 mg PRN DAILY PRN [place] CONSTIPATION 01/01/20 20:15 01/02/20 06:27 I have reviewed the current psychotropics carefully including drug interactions. Risk benefit ratio favors no change other than as noted in my dictated progress note. Diagnosis: Problems: (1) Schizoaffective disorder, bipolar type (2) Impulse control disorder, unspecified (3) Anxiety disorder, unspecified (4) Bipolar disorder, curr episode mixed, severe, with psychotic features CAREN MALIK MD Jan 02, 2020 07:56
[2020-01-02] MEDS: CITALOPRAM 20 MG TABLET. PO SCH (08:15)
[2020-01-02] MEDS: QUEtiapine 25 MG TABLET. PO SCH ×3 (08:15→21:05)
[2020-01-02] MEDS: metFORMIN 500 MG TABLET PO SCH ×2 (08:15→16:54)
[2020-01-02] MEDS: VALPROIC ACID 250 MG CAPSULE. PO SCH ×2 (08:16→21:05)
[2020-01-02 16:18] VITALS: BP 125/75
--- NOTE | 2020-01-02 20:56 | PDOC ---
Exam Note: Kwasi Note: Please also refer to the separate dictated note~for this date of service dictated separately.~Patient seen individually. Discussed the patient with Nursing staff reviewed the chart.~Reviewed interim history and current functioning. Reviewed vital signs,~Labs/ Radiology~and current medications noted below. Continue current treatment with the changes noted in the dictated addendum note Assessment: Vital Signs/I&O: Vital Signs Date Time Temp Pulse Resp B/P (MAP) Pulse Ox O2 Delivery O2 Flow Rate FiO2 01/02/20 16:18 98.3 54 19 125/75 (92) 95 01/01/20 15:55 Room Air I & O 01/01/20 01/01/20 01/02/20 15:00 23:00 07:00 Intake Total 240 ml 240 ml 240 ml Balance 240 ml 240 ml 240 ml Labs: Laboratory Tests Test 01/02/20 08:10 Glucose (Fingerstick) 134 mg/dL (70-99) H Current Medications: I have reviewed the current psychotropics carefully including drug interactions. Risk benefit ratio favors no change other than as noted in my dictated progress note. Diagnosis: Problems: (1) Schizoaffective disorder, bipolar type (2) Impulse control disorder, unspecified (3) Anxiety disorder, unspecified (4) Bipolar disorder, curr episode mixed, severe, with psychotic features CAREN MALIK MD Jan 02, 2020 20:56
[2020-01-02] MEDS: clonazePAM 0.5 MG TABLET PO SCH (21:04)
[2020-01-02] MEDS: MIRTAZAPINE ODT 15 MG TAB.RAPDIS. PO SCH (21:05)
[2020-01-03] MEDS ORDERED: BISA10SU55 RC (02:13)
[2020-01-03] MEDS ORDERED: MAG30ORA2 PO (02:18)
[2020-01-03] MEDS ORDERED: MAGN24003 PO (02:19)
[2020-01-03] MEDS ORDERED: METH28OI2 TP (02:20)
[2020-01-03] MEDS ORDERED: NICO2LOZ BC (02:22)
[2020-01-03] MEDS ORDERED: OLAN5TAB99 PO (02:24)
[2020-01-03] MEDS ORDERED: QUET25TA5 PO (02:30)
[2020-01-03] MEDS ORDERED: VALP250C2 PO ×2 (02:32→02:33)
[2020-01-03 06:24] VITALS: BP 119/69
--- NOTE | 2020-01-03 07:30 | PDOC ---
Exam Note: Kwasi Note: This note is a late entry for 01/02/2020 covers elements not covered in my initial note. Subjective: The patient was seen face to face in the evening of 01/02/2020 with Joycelyn GAUTAM. Discussed with nursing staff, reviewed the chart. The patient slept 7 hours previous night. He did well in the morning, somewhat irritable in the evening. He is quite upset that he was not discharged today and I addressed with him at length individually. Review of Systems: Ambulation impaired in wheelchair. No CV, , pulmonary, eye system symptoms on review. He does have weakness consequent to status post CVA. Mental Status Exam: The patient is oriented to himself and situation. I met with him individually. Speech coherent. Abstraction is fair. Computation is impaired. Language function is intact. Attention span is short. Mood and affect withdrawn. Laboratory Data: Reviewed. Impression: Schizoaffective disorder bipolar type mixed with psychotic features. Anxiety disorder unspecified. Impulse control disorder unspecified. Plan: No change from initial note. Assessment: Vital Signs/I&O: Vital Signs Date Time Temp Pulse Resp B/P (MAP) Pulse Ox O2 Delivery O2 Flow Rate FiO2 01/03/20 06:24 98.1 42 16 119/69 (86) 94 01/01/20 15:55 Room Air I & O 01/02/20 01/02/20 01/03/20 15:00 23:00 07:00 Intake Total 480 ml 480 ml 240 ml Balance 480 ml 480 ml 240 ml Labs: Laboratory Tests Test 01/02/20 08:10 01/03/20 07:21 Glucose (Fingerstick) 134 mg/dL (70-99) H 131 mg/dL (70-99) H Current Medications: I have reviewed the current psychotropics carefully including drug interactions. Risk benefit ratio favors no change other than as noted in my dictated progress note. Diagnosis: Problems: (1) Schizoaffective disorder, bipolar type (2) Impulse control disorder, unspecified (3) Anxiety disorder, unspecified (4) Bipolar disorder, curr episode mixed, severe, with psychotic features CAREN MALIK MD Jan 03, 2020 07:30
[2020-01-03] MEDS: QUEtiapine 25 MG TABLET. PO SCH ×3 (09:59→20:18)
[2020-01-03] MEDS: VALPROIC ACID 250 MG CAPSULE. PO SCH ×2 (09:59→20:18)
[2020-01-03] MEDS: metFORMIN 500 MG TABLET PO SCH ×2 (09:59→17:27)
[2020-01-03] MEDS: CITALOPRAM 20 MG TABLET. PO SCH (10:00)
[2020-01-03 16:26] VITALS: BP 144/84
[2020-01-03] MEDS: clonazePAM 0.5 MG TABLET PO SCH (20:17)
[2020-01-03] MEDS: MIRTAZAPINE ODT 15 MG TAB.RAPDIS. PO SCH (20:17)
--- NOTE | 2020-01-03 20:47 | PDOC ---
Exam Note: Kwasi Note: Please also refer to the separate dictated note~for this date of service dictated separately.~Patient seen individually. Discussed the patient with Nursing staff reviewed the chart.~Reviewed interim history and current functioning. Reviewed vital signs,~Labs/ Radiology~and current medications noted below. Continue current treatment with the changes noted in the dictated addendum note Assessment: Vital Signs/I&O: Vital Signs Date Time Temp Pulse Resp B/P (MAP) Pulse Ox O2 Delivery O2 Flow Rate FiO2 01/03/20 16:26 98.5 58 16 144/84 (104) 97 01/01/20 15:55 Room Air I & O 01/02/20 01/02/20 01/03/20 15:00 23:00 07:00 Intake Total 480 ml 480 ml 240 ml Balance 480 ml 480 ml 240 ml Labs: Laboratory Tests Test 01/03/20 07:21 Glucose (Fingerstick) 131 mg/dL (70-99) H Current Medications: I have reviewed the current psychotropics carefully including drug interactions. Risk benefit ratio favors no change other than as noted in my dictated progress note. Diagnosis: Problems: (1) Schizoaffective disorder, bipolar type (2) Impulse control disorder, unspecified (3) Anxiety disorder, unspecified (4) Bipolar disorder, curr episode mixed, severe, with psychotic features CAREN MALIK MD Jan 03, 2020 20:47
[2020-01-04 07:12] VITALS: BP 132/78
[2020-01-04] MEDS: CITALOPRAM 20 MG TABLET. PO SCH (09:12)
[2020-01-04] MEDS: QUEtiapine 25 MG TABLET. PO SCH ×2 (09:12→13:10)
[2020-01-04] MEDS: VALPROIC ACID 250 MG CAPSULE. PO SCH (09:13)
[2020-01-04] MEDS: metFORMIN 500 MG TABLET PO SCH (09:13)
[2020-01-04 16:33] VITALS: BP 116/77
--- NOTE | 2020-01-04 18:51 | DS ---
DATE OF DISCHARGE: 01/04/2020 DISCHARGE SUMMARY/PSYCHIATRIC PROGRESS NOTE This note covers elements not covered in my initial note 01/04/2020. REASON FOR ADMISSION: Please refer to the admission history for details. Briefly, the patient is a 59-year-old male who is a long-term resident at [facility] in [place], [place] and has a longstanding diagnosis of schizoaffective disorder, bipolar type, mixed with psychotic features. He has had acute exacerbation of this condition as he was throwing things in his room with marked mood lability, verbally abusive, yelling, screaming, running in his wheelchair into different things. He was manipulative, having bowel movements on the floor, demanding. Behaviors were deemed dangerous, unmanageable. He was psychotic, had failed outpatient psychiatric interventions resulting in this referral. SIGNIFICANT FINDINGS AND CLINICAL COURSE: Following admission, the patient was seen daily individually by myself from a psychiatric standpoint, medical followup with Dr. Ross/Dr. Bennett. He is quite psychotic, paranoid initially. Adjustments were made in his psychotropics. He seemed to respond to a combination of Seroquel 12.5 mg b.i.d. ____ 1300. Klonopin 0.25 mg at bedtime and 0.25 mg b.i.d., which should be gradually tapered as an outpatient. He is also on Remeron 7.5 mg at bedtime, Depakote 500 mg a.m., 750 at bedtime. Blood level was therapeutic at 81. Lexapro 20 mg a day, Remeron 7.5 mg at bedtime, Zyprexa p.r.n. Gradually, the patient's mood appeared to improve. He was easily frustrated, especially regarding discharge plans and transition back to the facility since he was quite impatient about this and I addressed this with him daily during the individual visits. REVIEW OF SYSTEMS: Prior to discharge, 01/04/2020, ambulation impaired in wheelchair. No CV, , pulmonary, eye, ENT system symptoms on review. MENTAL STATUS EXAM: The patient is reasonably oriented. Speech has some latency, often responses monosyllabic. Abstraction fair, computation impaired, language function intact, attention span short. Mood and affect, lability is improved. LABORATORY DATA: Reviewed. FINAL DIAGNOSES: Schizoaffective disorder, bipolar type, mixed with psychotic features, in partial remission; anxiety disorder, unspecified; impulse control disorder, unspecified. Rest unchanged from admission. DISCHARGE MEDICATIONS: Please refer to the MRAD. DISCHARGE INSTRUCTIONS: [facility] Time for discharge day management greater than 30 minutes. MAN Lokesh MALIK MD DR: CASA/christine JOB#: [id number] / [id number]
--- NOTE | 2020-01-04 21:00 | PDOC ---
Exam Note: Kwasi Note: Please also refer to the separate dictated note~for this date of service dictated separately.~Patient seen individually. Discussed the patient with Nursing staff reviewed the chart.~Reviewed interim history and current functioning. Reviewed vital signs,~Labs/ Radiology~and current medications noted below. Continue current treatment with the changes noted in the dictated addendum note Assessment: Vital Signs/I&O: Vital Signs Date Time Temp Pulse Resp B/P (MAP) Pulse Ox O2 Delivery O2 Flow Rate FiO2 01/04/20 16:33 96.8 60 19 116/77 (90) 94 01/01/20 15:55 Room Air I & O 01/03/20 01/03/20 01/04/20 15:00 23:00 07:00 Intake Total 405 ml 360 ml Balance 405 ml 360 ml Current Medications: I have reviewed the current psychotropics carefully including drug interactions. Risk benefit ratio favors no change other than as noted in my dictated progress note. Diagnosis: Problems: (1) Bipolar 1 disorder, mixed, partial remission (2) Anxiety disorder, unspecified (3) Impulse control disorder, unspecified (4) Schizoaffective disorder, bipolar type CAREN MALIK MD Jan 04, 2020 21:00
--- NOTE | 2020-01-05 07:15 | PDOC ---
Exam Note: Kwasi Note: This note is a late entry for 01/03/2020 covers elements not covered in my initial note. Subjective: The patient was seen face to face in the evening of 01/03/2020 with Johanny GAUTAM. Discussed with nursing staff, reviewed the chart. The patient slept 6-1/2 hours previous night. He is less irritable, less paranoid. We discussed discharge plans for 01/03. Review of Systems: Ambulation impaired in wheelchair. No CV, , pulmonary, ey e system symptoms on review. Mental Status Exam: The patient is oriented to himself and situation. I met with him individually. Speech coherent. Abstraction is fair. Computation is impaired. Language function is intact. Attention span is short. Mood and affect withdrawn. Laboratory Data: Reviewed. Impression: Schizoaffective disorder bipolar type mixed with psychotic f eatures, in partial remission. Anxiety disorder unspecified. Impulse control disorder unspecified. Plan: No change from initial note. Assessment: Vital Signs/I&O: Vital Signs Date Time Temp Pulse Resp B/P (MAP) Pulse Ox O2 Delivery O2 Flow Rate FiO2 01/04/20 16:33 96.8 60 19 116/77 (90) 94 01/01/20 15:55 Room Air I & O 01/04/20 01/04/20 01/05/20 14:59 22:59 06:59 Intake Total 325 ml Balance 325 ml Current Medications: I have reviewed the current psychotropics carefully including drug interactions. Risk benefit ratio favors no change other than as noted in my dictated progress note. Diagnosis: Problems: (1) Schizoaffective disorder, bipolar type (2) Impulse control disorder, unspecified (3) Anxiety disorder, unspecified (4) Bipolar 1 disorder, mixed, partial remission CAREN MALIK MD Jan 05, 2020 07:15
== END 2020-01-04 16:00 | DRG 885 ==
LOC: GEROPSY 22:05
PROVIDERS: ADMIT Psychiatry & Neurology Psychiatry; ATTEND Psychiatry & Neurology Psychiatry
DX: F25.0 Schizoaffective disorder, bipolar type (principal); F01.50 Vascular dementia, unspecified severity, without behavioral disturbance, psychotic disturbance, mood disturbance, and anxiety; E43 Unspecified severe protein-calorie malnutrition; R64 Cachexia; I69.359 Hemiplegia and hemiparesis following cerebral infarction affecting unspecified side; F63.9 Impulse disorder, unspecified; F41.9 Anxiety disorder, unspecified; E11.9 Type 2 diabetes mellitus without complications; F17.200 Nicotine dependence, unspecified, uncomplicated; G40.909 Epilepsy, unspecified, not intractable, without status epilepticus; K21.9 Gastro-esophageal reflux disease without esophagitis; Z20.828 Contact with and (suspected) exposure to other viral communicable diseases; R13.10 Dysphagia, unspecified; Z79.84 Long term (current) use of oral hypoglycemic drugs; Z79.899 Other long term (current) drug therapy; Z68.25 Body mass index [BMI] 25.0-25.9, adult
CPT/HCPCS: 36415; 80053; 80164; 82947; 84436; 84480; 85007; 85025; 85379; 87493; 99406; U0003; 97530

== ENCOUNTER 2020-06-15 10:35 | Inpatient (IN) | payer MEDICARE, OTHER ==
[~2020-06-15] VITALS: Ht 170.2 cm; Wt 79.6 kg
[~2020-06-15 10:35] MED LIST changes: +BISA10SU55 RC; +MAG30ORA2 PO; +MAGN24003 PO; +METH28OI2 TP; +NICO2LOZ BC; +NYST15PO9 TP; +OLAN5TAB99 PO; +VALP250C2 PO
[2020-06-15] MEDS ORDERED: CITA40TA5 PO (11:14)
[2020-06-15] MEDS ORDERED: [UNRECOGNIZED DRUG - OTHER] TOP (11:23)
[2020-06-15] MEDS ORDERED: CHOL400C PO (11:23)
[2020-06-15] MEDS ORDERED: NYST15PO9 TP (11:23)
[2020-06-15] MEDS ORDERED: MENT118G TP (11:23)
[2020-06-15 11:25] VITALS: BP 105/70
[2020-06-15] MEDS ORDERED: MAG HYDROX/AL HYDROX/SIMETH 30 ML ORAL.SUSP PO PRN ×2 (11:30→12:15)
[2020-06-15] MEDS ORDERED: ACETAMINOPHEN 325 MG TABLET PO PRN ×2 (11:30→12:15)
[2020-06-15] MEDS ORDERED: BISACODYL 10 MG SUPP.RECT RC PRN (11:30)
[2020-06-15] MEDS ORDERED: NON FORMULARY ITEM (Menthol (Biofreeze) 1 APP) TP SCH (12:00)
[2020-06-15] MEDS ORDERED: MAGNESIUM HYDROXIDE 2,400 MG/30 ML ORAL.SUSP. PO PRN ×2 (12:15)
[2020-06-15] MEDS ORDERED: METHYL SALICYLATE/MENTHOL TOPICAL OINTMENT 57GM TUBE. TP PRN ×2 (12:15)
[2020-06-15 13:24] LABS: BASO % 1 % (0-3); EOS % 1 % (0-3); HEMOGLOBIN 16.5 g/dL (13.0-17.5); LYMPH # 2.5 x10^3/uL (1.0-4.8); LYMPH % 27 % (24-48); MEAN CORPUSCULAR HEMOGLOBIN 36 pg (25-35); MEAN CORPUSCULAR HGB CONC 34 g/dL (31-37); MEAN CORPUSCULAR VOLUME 106 fL (79-100); MONO # 1.1 x10^3/uL (0.0-1.1); MONO % 11 % (0-9); NEUT # 5.6 x10^3uL (1.8-7.7); NEUT % 60 % (31-73); PLATELET COUNT 149 x10^3/uL (140-400); RED BLOOD COUNT 4.64 x10^6/uL (4.30-5.70); RED CELL DISTRIBUTION WIDTH 15.3 % (11.5-14.5); WHITE BLOOD COUNT 9.3 x10^3/uL (4.0-11.0)
[2020-06-15 13:41] LABS: ALBUMIN 3.2 g/dL (3.4-5.0); ALBUMIN/GLOBULIN RATIO 0.6 (1.0-1.7); ALK PHOS 76 U/L (46-116); ALT (SGPT) 17 U/L (16-63); ANION GAP 9 (6-14); AST (SGOT) 11 U/L (15-37); BLOOD UREA NITROGEN 11 mg/dL (8-26); BUN/CREATININE RATIO 14 (6-20); CALCIUM 9.4 mg/dL (8.5-10.1); CARBON DIOXIDE 27 mmol/L (21-32); CHLORIDE 98 mmol/L (98-107); CREATININE 0.8 mg/dL (0.7-1.3); GFR 99.3; GLUCOSE 251 mg/dL (70-99); MAGNESIUM 1.6 mg/dL (1.8-2.4); POTASSIUM 3.8 mmol/L (3.5-5.1); SODIUM 134 mmol/L (136-145); TOTAL BILIRUBIN 0.3 mg/dL (0.2-1.0); TOTAL PROTEIN 8.5 g/dL (6.4-8.2)
[2020-06-15 13:42] LABS: VAL ACID 95 mcg/mL (50-100)
[2020-06-15 15:29] VITALS: BP 112/64
[2020-06-15] MEDS: metFORMIN 500 MG TABLET PO SCH (17:00)
[2020-06-15] MEDS: NICOTINE 14MG PATCH. TD SCH (19:20)
[2020-06-15] MEDS: QUEtiapine 25 MG TABLET. PO SCH (21:27)
[2020-06-15] MEDS: VALPROIC ACID 250 MG CAPSULE. PO SCH (21:27)
[2020-06-15] MEDS: clonazePAM 0.5 MG TABLET PO SCH (21:27)
[2020-06-15] MEDS: NYSTATIN TOPICAL POWDER 15GM BOTTLE. TP SCH (21:27)
--- NOTE | 2020-06-15 22:06 | PDOC ---
Exam Note: Kwasi Note: Please also refer to the separate dictated note~for this date of service dictated separately.~Patient seen individually. Discussed the patient with Nursing staff reviewed the chart.~Reviewed interim history and current functioning. Reviewed vital signs,~Labs/ Radiology~and current medications noted below. Continue current treatment with the changes noted in the dictated addendum note Assessment: Vital Signs/I&O: Vital Signs Date Time Temp Pulse Resp B/P (MAP) Pulse Ox O2 Delivery O2 Flow Rate FiO2 06/15/20 15:29 97.5 54 16 112/64 (80) 96 Room Air Labs: Laboratory Tests Test 06/15/20 13:14 White Blood Count 9.3 x10^3/uL (4.0-11.0) Red Blood Count 4.64 x10^6/uL (4.30-5.70) Hemoglobin 16.5 g/dL (13.0-17.5) Hematocrit 49.0 % (39.0-53.0) Mean Corpuscular Volume 106 fL (79-100) H Mean Corpuscular Hemoglobin 36 pg (25-35) H Mean Corpuscular Hemoglobin Concent 34 g/dL (31-37) Red Cell Distribution Width 15.3 % (11.5-14.5) H Platelet Count 149 x10^3/uL (140-400) Neutrophils (%) (Auto) 60 % (31-73) Lymphocytes (%) (Auto) 27 % (24-48) Monocytes (%) (Auto) 11 % (0-9) H Eosinophils (%) (Auto) 1 % (0-3) Basophils (%) (Auto) 1 % (0-3) Neutrophils # (Auto) 5.6 x10^3uL (1.8-7.7) Lymphocytes # (Auto) 2.5 x10^3/uL (1.0-4.8) Monocytes # (Auto) 1.1 x10^3/uL (0.0-1.1) Eosinophils # (Auto) 0.0 x10^3/uL (0.0-0.7) Basophils # (Auto) 0.0 x10^3/uL (0.0-0.2) D-Dimer (Delmi) 0.32 mg/L (0.00-0.50) Sodium Level 134 mmol/L (136-145) L Potassium Level 3.8 mmol/L (3.5-5.1) Chloride Level 98 mmol/L (98-107) Carbon Dioxide Level 27 mmol/L (21-32) Anion Gap 9 (6-14) Blood Urea Nitrogen 11 mg/dL (8-26) Creatinine 0.8 mg/dL (0.7-1.3) Estimated GFR (Cockcroft-Gault) 99.3 BUN/Creatinine Ratio 14 (6-20) Glucose Level 251 mg/dL (70-99) H Calcium Level 9.4 mg/dL (8.5-10.1) Magnesium Level 1.6 mg/dL (1.8-2.4) L Total Bilirubin 0.3 mg/dL (0.2-1.0) Aspartate Amino Transferase (AST) 11 U/L (15-37) L Alanine Aminotransferase (ALT) 17 U/L (16-63) Alkaline Phosphatase 76 U/L (46-116) Total Protein 8.5 g/dL (6.4-8.2) H Albumin 3.2 g/dL (3.4-5.0) L Albumin/Globulin Ratio 0.6 (1.0-1.7) L Valproic Acid Level 95 mcg/mL (50-100) Valproic Acid Last Dose Date 06/14/20 Valproic Acid Last Dose Time 2100 Current Medications: Meds: Current Medications Medications (Trade) Dose Ordered Sig/Samm Route PRN Reason Start Time Stop Time Status Last Admin Dose Admin Clonazepam (KlonoPIN) 0.5 mg HS PO 06/15/20 21:00 06/15/20 21:27 Nystatin (Nystop) 1 shay BID TP 06/15/20 21:00 06/15/20 21:27 Quetiapine Fumarate (SEROquel) 25 mg BID PO 06/15/20 21:00 06/15/20 21:27 Valproic Acid (Depakene) 750 mg HS PO 06/15/20 21:00 06/15/20 21:27 I have reviewed the current psychotropics carefully including drug interactions. Risk benefit ratio favors no change other than as noted in my dictated progress note. Diagnosis: Problems: (1) Bipolar disorder, curr episode mixed, severe, with psychotic features (2) Schizoaffective disorder, bipolar type (3) Impulse control disorder, unspecified (4) Anxiety disorder, unspecified CAREN MALIK MD Jun 15, 2020 22:06
--- NOTE | 2020-06-16 00:39 | HP ---
ADMIT DATE: 06/15/2020 PSYCHIATRIC HISTORY/EVALUATION I met with the patient in the evening of 06/15/2020. Discussed with nursing staff, reviewed the chart, previously discussed with Latia Meraz, admissions coordinator. IDENTIFYING DATA: The patient is a 60-year-old male referred to us from [facility] on account of an acute exacerbation of his schizoaffective disorder, bipolar type, mixed with psychotic features. The patient has been at the facility for some time, recently getting more verbally aggressive towards peers, agitated, depressed, anxious, telling staff to "F ---- you." He has been name calling, aggressive, disruptive, has failed outpatient psychiatric interventions resulting in this referral. HISTORY OF PRESENT ILLNESS: The patient has a history of schizoaffective disorder, bipolar type. He says he has had mood swings, paranoia, sleep and appetite changes, marked aggression, and agitation. No active suicidal or homicidal ideation. PAST PSYCHIATRIC HISTORY: As above. MEDICAL HISTORY: Status post CVA, diabetes mellitus, hemiplegia, dysphagia, cognitive impairment. ACCU-CHEKS: Daily. CODE STATUS: Full code. ALLERGIES: EGG. DIET: Regular. UA is negative at admission. CURRENT PSYCHOTROPICS: Celexa 40 mg a day, Klonopin 0.5 mg at bedtime, Depakote delayed release 750 at bedtime, 500 mg daily, and Seroquel 25 mg b.i.d. FAMILY HISTORY: Noncontributory. SOCIAL HISTORY: No history of alcohol, drug abuse, physical, sexual or elder abuse. He is not known to be a perpetrator. REACTION TO HOSPITALIZATION: The patient accepting of it. ASSETS: Supportive living at the above facility. REVIEW OF SYSTEMS: Ambulation impaired, in wheelchair. No CV, , pulmonary, eye, ENT system symptoms on review. MENTAL STATUS EXAMINATION: Oriented to himself and situation. Speech has some latency, coherent. Abstraction fair, computation impaired, language function intact, attention span short. He is paranoid, suspicious. He seemed to remember me from when I saw him at the halfway about a year back. IMPRESSION: Schizoaffective disorder, bipolar type, mixed with psychotic features; anxiety disorder, unspecified; impulse control disorder, unspecified. Rest as noted above. PLAN: Admit to Geropsychiatry Unit at [facility]. I will see the patient daily individually from a psychiatric standpoint. Medical followup with Dr. Ross/Dr. Bennett. Continue current psychotropics. Observe baseline. Make further adjustments as clinically indicated. ESTIMATED LENGTH OF STAY: 10-12 days. DISPOSITION: Plans back to halfway when stable. MAN Lokesh MALIK MD DR: CASA/christine JOB#: [id number] / [id number]
[2020-06-16 02:07] LABS: THYROXINE 6.8 ug/dL (4.5-12.0)
--- NOTE | 2020-06-16 06:37 | EKG ---
[address] [address] Test Date: 2020-06-15 Test Time: 15:15:54 Pat Name: KADEN CENTENO Department: Room: [address] [place] [address] Gender: M Medical Radiation Tech: : [id number] Requested By: CAREN MALIK Order Number: [id number] Reading MD: Measurements Intervals [place] Rate: P: NC: QRS: QRSD: T: QT: QTc: Interpretive Statements
[2020-06-16 06:41] VITALS: BP 104/57
[2020-06-16 07:07] LABS: BACTERIA,URINE FEW /HPF (0-FEW); BILIRUBIN,URINE SMALL (NEG); CLARITY,URINE HAZY; COLOR,URINE AMBER; GLUCOSE,URINE 500 mg/dL (NEG); NITRITE,URINE NEG (NEG); SQUAMOUS EPITHELIAL CELL,UR OCC /LPF; WBC,URINE 20-40 /HPF (0-4)
[2020-06-16] MEDS: QUEtiapine 25 MG TABLET. PO SCH ×2 (07:57→21:23)
[2020-06-16] MEDS: CITALOPRAM 20 MG TABLET. PO SCH (07:57)
[2020-06-16] MEDS: VALPROIC ACID 250 MG CAPSULE. PO SCH ×2 (07:58→21:24)
[2020-06-16] MEDS: CHOLECALCIFEROL (VITAMIN D3) 1,000 UNIT TABLET PO SCH (07:58)
[2020-06-16] MEDS: metFORMIN 500 MG TABLET PO SCH ×2 (07:58→17:38)
[2020-06-16] MEDS: NYSTATIN TOPICAL POWDER 15GM BOTTLE. TP SCH ×2 (09:00→21:23)
[2020-06-16] MEDS: NICOTINE 14MG PATCH. TD SCH (09:00)
[2020-06-16 15:53] VITALS: BP 142/80
[2020-06-16 19:40] LABS: TRIGLYCERIDES 678 mg/dL (0-150); VLDLC 135 mg/dL (0-40)
[2020-06-16 19:41] LABS: HDLC 32 mg/dL (40-60)
[2020-06-16 19:42] LABS: THYROID STIM HORMONE (TSH) 8.498 uIU/mL (0.358-3.740)
[2020-06-16] MEDS: clonazePAM 0.5 MG TABLET PO SCH (21:24)
--- NOTE | 2020-06-16 21:59 | PDOC ---
Exam Note: Kwasi Note: Please also refer to the separate dictated note~for this date of service dictated separately.~Patient seen individually. Discussed the patient with Nursing staff reviewed the chart.~Reviewed interim history and current functioning. Reviewed vital signs,~Labs/ Radiology~and current medications noted below. Continue current treatment with the changes noted in the dictated addendum note Assessment: Vital Signs/I&O: Vital Signs Date Time Temp Pulse Resp B/P (MAP) Pulse Ox O2 Delivery O2 Flow Rate FiO2 06/16/20 15:53 98.4 62 18 142/80 (100) 97 06/15/20 15:29 Room Air I & O 06/15/20 06/15/20 06/16/20 15:00 23:00 07:00 Intake Total 240 ml 0 ml 120 ml Balance 240 ml 0 ml 120 ml Labs: Laboratory Tests Test 06/16/20 06:00 06/16/20 07:48 Urine Collection Type Unknown Urine Color Jackie Urine Clarity Hazy Urine pH 6.0 Urine Specific [place] 1.025 Urine Protein 30 mg/dl (NEG-TRACE) Urine Glucose (UA) 500 mg/dL (NEG) Urine Ketones (Stick) 15 mg/dL (NEG) Urine Blood Trace (NEG) Urine Nitrite Neg (NEG) Urine Bilirubin Small (NEG) Urine Urobilinogen Dipstick 1.0 mg/dL (0.2 mg/dL) Urine Leukocyte Esterase Trace (NEG) Urine RBC 1-2 /HPF (0-2) Urine WBC 20-40 /HPF (0-4) Urine Squamous Epithelial Cells Occ /LPF Urine Transitional Epithelial Cells Occ /LPF Urine Renal Epithelial Cells Occ /LPF Urine Bacteria Few /HPF (0-FEW) Urine Mucus Slight /LPF Glucose (Fingerstick) 189 mg/dL (70-99) H Current Medications: Meds: Laboratory Tests Test 06/16/20 06:00 06/16/20 07:48 Urine Collection Type Unknown Urine Color Jackie Urine Clarity Hazy Urine pH 6.0 Urine Specific [place] 1.025 Urine Protein 30 mg/dl Urine Glucose (UA) 500 mg/dL Urine Ketones (Stick) 15 mg/dL Urine Blood Trace Urine Nitrite Neg Urine Bilirubin Small Urine Urobilinogen Dipstick 1.0 mg/dL Urine Leukocyte Esterase Trace Urine RBC 1-2 /HPF Urine WBC 20-40 /HPF Urine Squamous Epithelial Cells Occ /LPF Urine Transitional Epithelial Cells Occ /LPF Urine Renal Epithelial Cells Occ /LPF Urine Bacteria Few /HPF Urine Mucus Slight /LPF Glucose (Fingerstick) 189 mg/dL Current Medications Medications (Trade) Dose Ordered Sig/Samm Route PRN Reason Start Time Stop Time Status Last Admin Dose Admin Acetaminophen (Tylenol) 650 mg PRN Q4HRS PRN PO pain or fever 06/15/20 11:30 Bisacodyl (Dulcolax Supp) 10 mg PRN DAILY PRN RC CONSTIPATION 06/15/20 11:30 Clonazepam (KlonoPIN) 0.5 mg HS PO 06/15/20 21:00 06/16/20 21:24 Al Hydroxide/Mg Hydroxide (Mylanta Plus Xs) 30 ml Q6HRS PRN PO HEARTBURN/INDIGESTION 06/15/20 11:30 06/15/20 14:34 DC Nystatin (Nystop) 1 shay BID TP 06/15/20 21:00 06/16/20 21:23 Quetiapine Fumarate (SEROquel) 25 mg BID PO 06/15/20 21:00 06/16/20 21:23 Valproic Acid (Depakene) 500 mg DAILY PO 06/16/20 09:00 06/16/20 07:58 Valproic Acid (Depakene) 750 mg HS PO 06/15/20 21:00 06/16/20 21:24 Vitamin D (Vitamin D3) 500 unit DAILY PO 06/16/20 09:00 06/16/20 07:58 Citalopram Hydrobromide (CeleXA) 40 mg DAILY PO 06/16/20 09:00 06/16/20 07:57 Magnesium Hydroxide (Milk Of Magnesia) 2,400 mg PRN DAILY PRN PO CONSTIPATION 06/15/20 12:15 06/15/20 14:34 DC Non-Formulary Medication (Menthol (Biofreeze)) 1 shay Q6HRS TP 06/15/20 12:00 06/15/20 12:07 DC Metformin HCl (Glucophage) 1,000 mg BIDWMEALS PO 06/15/20 17:00 06/16/20 17:38 Multi-Ingredient Ointment (Analgesic Anza) 1 shay PRN Q6HRS PRN TP MUSCLE SPASTICITY 06/15/20 12:15 06/15/20 14:34 DC Ketoconazole (Nizoral 2% Shampoo) 1 shay MoTh TP 06/18/20 09:00 Acetaminophen (Tylenol) 650 mg PRN Q6HRS PRN PO MILD PAIN / TEMP > 100.3'F 06/15/20 12:15 UNV Multi-Ingredient Ointment (Analgesic Anza) 1 shay PRN QID PRN TP MUSCLE PAIN 06/15/20 12:15 Al Hydroxide/Mg Hydroxide (Mylanta Plus Xs) 15 ml PRN AFTMEALHC PRN PO DYSPEPSIA 06/15/20 12:15 Magnesium Hydroxide (Milk Of Magnesia) 2,400 mg PRN QHS PRN PO CONSTIPATION 06/15/20 12:15 Nicotine (Nicoderm Cq 14mg Patch) 1 patch DAILY TD 06/15/20 19:20 Current Medications Medications (Trade) Dose Ordered Sig/Samm Route PRN Reason Start Time Stop Time Status Last Admin Dose Admin Valproic Acid (Depakene) 500 mg DAILY PO 06/16/20 09:00 06/16/20 07:58 Vitamin D (Vitamin D3) 500 unit DAILY PO 06/16/20 09:00 06/16/20 07:58 Citalopram Hydrobromide (CeleXA) 40 mg DAILY PO 06/16/20 09:00 06/16/20 07:57 I have reviewed the current psychotropics carefully including drug interactions. Risk benefit ratio favors no change other than as noted in my dictated progress note. Diagnosis: Problems: (1) Schizoaffective disorder, bipolar type (2) Impulse control disorder, unspecified (3) Anxiety disorder, unspecified (4) Bipolar disorder, curr episode mixed, severe, with psychotic features CAREN MALIK MD Jun 16, 2020 21:59
[2020-06-17 06:18] VITALS: BP 103/60
[2020-06-17 07:18] LABS: HEMOGLOBIN A1C 12.5 % (4.8-5.6)
[2020-06-17] MEDS: metFORMIN 500 MG TABLET PO SCH ×2 (08:05→17:06)
[2020-06-17] MEDS: QUEtiapine 25 MG TABLET. PO SCH ×2 (08:06→20:10)
[2020-06-17] MEDS: CITALOPRAM 20 MG TABLET. PO SCH (08:06)
[2020-06-17] MEDS: NYSTATIN TOPICAL POWDER 15GM BOTTLE. TP SCH ×2 (08:06→20:10)
[2020-06-17] MEDS: CHOLECALCIFEROL (VITAMIN D3) 1,000 UNIT TABLET PO SCH (08:06)
[2020-06-17] MEDS: VALPROIC ACID 250 MG CAPSULE. PO SCH ×2 (08:06→20:10)
[2020-06-17] MEDS: NICOTINE 14MG PATCH. TD SCH (08:06)
--- NOTE | 2020-06-17 14:06 | CONS ---
DATE OF CONSULTATION: 06/16/2020 REASON FOR CONSULT: Medical management. HISTORY OF PRESENT ILLNESS: The patient is a 60-year-old male patient, a resident at [facility], who was admitted to this facility on account of acute exacerbation of his schizoaffective disorder, bipolar type, mixed with psychotic features. The patient has been at the facility for some time, apparently recently getting more verbally aggressive towards peers, agitated, depressed, anxious, telling staff F-word. He has been name calling, aggressive, and disruptive. He has failed outpatient psychiatric intervention resulting in admission to [facility]. When I spoke to him, he stated that he has been irritated by another resident there, who herself is schizophrenic, and apparently he goes around from one room to other asking if able to go get out to smoke and that is very disruptive to other resident and the nursing staff. HISTORY OF PRESENT ILLNESS: He is apparently known to have schizoaffective disorder, bipolar type, and has had mood swings; however, he did not display any active suicidal or homicidal ideation. PAST MEDICAL HISTORY: Significant for type 2 diabetes, hyperlipidemia, diabetic peripheral neuropathy, gastroesophageal reflux disease, dysphagia. 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 He is known to have obstructive hydrocephalus, seizure disorder, muscle weakness, depression, cognitive impairment and ataxia. He is mostly wheelchair bound. PAST SURGICAL HISTORY: Significant for cholecystectomy, teeth extraction as well as ventriculoperitoneal shunt placement for obstructive hydrocephalus. ALLERGIES: HE IS ALLERGIC TO INFLUENZA VIRUS, VACCINES AND EGGS. MEDICATIONS: He is currently on analgesic balm topically every 6 hours, acetaminophen 650 mg every 4 hours, clonazepam or Klonopin 0.5 mg at bedtime, valproic acid 500 mg daily, valproic acid 750 mg at bedtime, citalopram, hydrobromide 40 mg daily, quetiapine fumarate 25 mg twice a day, Mylanta 30 mL every 6 hours, bisacodyl 10 mg suppository rectally daily p.r.n. for constipation, magnesium hydroxide 30 mL p.o. daily p.r.n. for constipation, metformin 1000 mg twice a day with meals. Nystatin powder apply topically twice a day, menthol Biofreeze one application every 6 hours, cholecalciferol 10 mcg once a day and ketaconazole shampoo once a month. FAMILY HISTORY: Positive for lung cancer in his mother, father and uncles. SOCIAL HISTORY: Apparently, he has been a resident at [facility] since 09[facility]. He smokes half a pack a day, used to drink heavily, has used cocaine, marijuana and LSD before. Most of his family are actually in [place] in [place]. PHYSICAL EXAMINATION: GENERAL: Today, he was sitting comfortably in his wheelchair, in no apparent respiratory distress. There was no pallor, jaundice, cyanosis or thyromegaly. No jugular venous distention or edema. VITAL SIGNS: Heart rate was 52. Blood pressure is 104/57, temperature was 97.1, respiratory rate was 18 and oxygen saturation was 95% on room air. HEENT: Normocephalic, atraumatic. NECK: Supple. HEART: Showed normal first and second heart sounds, no gallop, rub or murmur. CHEST: Clear to auscultation. No rhonchi. ABDOMEN: Distended, soft, nontender. NEUROLOGIC: He is awake and alert; however, he has left-sided dense hemiplegia. He is mostly bedbound, wheelchair bound. LABORATORY DATA: Lab work showed a white cell count of 9300, hemoglobin 16.5, hematocrit 49, MCV 106 and platelet count of 149,000. Serum sodium 134, potassium 3.8, chloride 88, bicarbonate 27, anion gap of 9, BUN 11, creatinine 0.8. Estimated GFR was 99 mL per minute. His glucose is 251, calcium was 9.4. Magnesium was 1.6, total bilirubin, AST, ALT, alkaline phosphatase were normal. Total protein was 8.5, albumin was 3.2. His total T4 and total T3 are all within normal range. His D-dimer was only 0.32 mg/dL. His urinalysis showed the urine was anabel, hazy with a pH of 6, specific gravity of 1.025, small amount of protein. There is a large amount of glucose, trace of ketones, negative for nitrite. There was trace of leukocyte esterase, 1-2 rbc's, 20-40 wbc's, very few bacteria. His valproic acid was 95 mcg/mL with a therapeutic range of 50-100. IMPRESSION: This is a 60-year-old male patient, a resident at a [facility], was admitted to this facility on account of acute exacerbation of his schizoaffective disorder, bipolar type, mixed with psychotic features. He has been more verbally aggressive towards peers, agitated, depressed, anxious telling staff F-word. He has been name calling, aggressive, disruptive, and apparently has failed an outpatient psychiatric intervention. Medically, he has a multitude of medical problems includin. Right middle cerebral artery territory infarct with dense left-sided hemiplegia and dysphagia. 2. He is also known to have cerebral palsy, type 2 diabetes, hyperlipidemia, diabetic peripheral neuropathy. 3. He has obstructive hydrocephalus, seizure disorder, muscle weakness, depression, cognitive impairment and ataxia. He is mostly bedbound, wheelchair bound. Medically, he seems to be all in all stable. His vital signs are all within acceptable range as well as all his lab work and all his medications seem to be appropriate. I will obviously continue to follow his lab work are still pending and make necessary recommendations. Thank you, Dr. Belle, for allowing me to participate in the care of this patient. RAFI/BELLA/HALIE DR: RAFI/christine TID: [id number]
[2020-06-17 16:01] VITALS: BP 123/83
[2020-06-17] MEDS: GLIMEPIRIDE 2 MG TABLET PO SCH (17:06)
[2020-06-17] MEDS: clonazePAM 0.5 MG TABLET PO SCH (20:10)
--- NOTE | 2020-06-17 22:09 | PDOC ---
Exam Note: Kwasi Note: Please also refer to the separate dictated note~for this date of service dictated separately.~Patient seen individually. Discussed the patient with Nursing staff reviewed the chart.~Reviewed interim history and current functioning. Reviewed vital signs,~Labs/ Radiology~and current medications noted below. Continue current treatment with the changes noted in the dictated addendum note Assessment: Vital Signs/I&O: Vital Signs Date Time Temp Pulse Resp B/P (MAP) Pulse Ox O2 Delivery O2 Flow Rate FiO2 06/17/20 16:01 97.5 58 16 123/83 (96) 95 06/15/20 15:29 Room Air I & O 06/16/20 06/16/20 06/17/20 15:00 23:00 07:00 Intake Total 240 ml 480 ml Balance 240 ml 480 ml Labs: Laboratory Tests Test 06/17/20 08:07 Glucose (Fingerstick) 194 mg/dL (70-99) H Current Medications: Meds: Laboratory Tests Test 06/17/20 08:07 Glucose (Fingerstick) 194 mg/dL Current Medications Medications (Trade) Dose Ordered Sig/Samm Route PRN Reason Start Time Stop Time Status Last Admin Dose Admin Acetaminophen (Tylenol) 650 mg PRN Q4HRS PRN PO pain or fever 06/15/20 11:30 Bisacodyl (Dulcolax Supp) 10 mg PRN DAILY PRN RC CONSTIPATION 06/15/20 11:30 Clonazepam (KlonoPIN) 0.5 mg HS PO 06/15/20 21:00 06/17/20 20:10 Al Hydroxide/Mg Hydroxide (Mylanta Plus Xs) 30 ml Q6HRS PRN PO HEARTBURN/INDIGESTION 06/15/20 11:30 06/15/20 14:34 DC Nystatin (Nystop) 1 shay BID TP 06/15/20 21:00 06/17/20 20:10 Quetiapine Fumarate (SEROquel) 25 mg BID PO 06/15/20 21:00 06/17/20 20:10 Valproic Acid (Depakene) 500 mg DAILY PO 06/16/20 09:00 06/17/20 08:06 Valproic Acid (Depakene) 750 mg HS PO 06/15/20 21:00 06/17/20 20:10 Vitamin D (Vitamin D3) 500 unit DAILY PO 06/16/20 09:00 06/17/20 08:06 Citalopram Hydrobromide (CeleXA) 40 mg DAILY PO 06/16/20 09:00 06/17/20 08:06 Magnesium Hydroxide (Milk Of Magnesia) 2,400 mg PRN DAILY PRN PO CONSTIPATION 06/15/20 12:15 06/15/20 14:34 DC Non-Formulary Medication (Menthol (Biofreeze)) 1 shay Q6HRS TP 06/15/20 12:00 06/15/20 12:07 DC Metformin HCl (Glucophage) 1,000 mg BIDWMEALS PO 06/15/20 17:00 06/17/20 17:06 Multi-Ingredient Ointment (Analgesic [place]) 1 shay PRN Q6HRS PRN TP MUSCLE SPASTICITY 06/15/20 12:15 06/15/20 14:34 DC Ketoconazole (Nizoral 2% Shampoo) 1 shay MoTh TP 06/18/20 09:00 Acetaminophen (Tylenol) 650 mg PRN Q6HRS PRN PO MILD PAIN / TEMP > 100.3'F 06/15/20 12:15 UNV Multi-Ingredient Ointment (Analgesic [place]) 1 shay PRN QID PRN TP MUSCLE PAIN 06/15/20 12:15 Al Hydroxide/Mg Hydroxide (Mylanta Plus Xs) 15 ml PRN AFTMEALHC PRN PO DYSPEPSIA 06/15/20 12:15 Magnesium Hydroxide (Milk Of Magnesia) 2,400 mg PRN QHS PRN PO CONSTIPATION 06/15/20 12:15 Nicotine (Nicoderm Cq 14mg Patch) 1 patch DAILY TD 06/15/20 19:20 Glimepiride (Amaryl) 2 mg BIDWMEALS PO 06/17/20 17:00 06/17/20 17:06 Current Medications Medications (Trade) Dose Ordered Sig/Samm Route PRN Reason Start Time Stop Time Status Last Admin Dose Admin Glimepiride (Amaryl) 2 mg BIDWMEALS PO 06/17/20 17:00 06/17/20 17:06 I have reviewed the current psychotropics carefully including drug interactions. Risk benefit ratio favors no change other than as noted in my dictated progress note. Diagnosis: Problems: (1) Bipolar 1 disorder, mixed, partial remission (2) Schizoaffective disorder, bipolar type (3) Impulse control disorder, unspecified (4) Anxiety disorder, unspecified (5) Bipolar disorder, curr episode mixed, severe, with psychotic features CAREN MALIK MD Jun 17, 2020 22:09
[2020-06-18 06:36] VITALS: BP 96/60
--- NOTE | 2020-06-18 07:27 | PDOC ---
Exam Note: Kwasi Note: This note is a late entry for 06/16/2020 covers elements not covered in my initial note. Subjective: The patient was seen individually in the evening of 06/16/2020 with Massiel GAUTAM, discussed and reviewed the chart. He slept 6-3/4 hours previous night. The patient is somewhat obsessive about going to the bathroom, somewhat anxious, restless. We addressed at length circumstances prompting admission and his aggressive behaviors and ways to help reduce this post return to the custodial. Review of Systems: Ambulation impaired in wheelchair. No CV, , pulmonary, eye, ENT system symptoms on review. Mental Status Exam: The patient is oriented to himself and situation. Speech has some latency, coherent. Abstraction fair. Computation impaired. Language function intact. Attention span short. Mood and affect paranoid, suspicious. Laboratory Data: Reviewed. Impression: Schizoaffective disorder, bipolar type, mixed with psychotic features. Anxiety disorder unspecified. Impulse control disorder unspecified. Plan: I have carefully reviewed drug interactions and risk-benefit ratio. No change from initial note. Assessment: Vital Signs/I&O: Vital Signs Date Time Temp Pulse Resp B/P (MAP) Pulse Ox O2 Delivery O2 Flow Rate FiO2 06/18/20 06:36 97.6 47 18 96/60 (72) 96 06/15/20 15:29 Room Air I & O 06/17/20 06/17/20 06/18/20 15:00 23:00 07:00 Intake Total 480 ml 240 ml 120 ml Balance 480 ml 240 ml 120 ml Labs: Laboratory Tests Test 06/17/20 08:07 Glucose (Fingerstick) 194 mg/dL (70-99) H Current Medications: Meds: Laboratory Tests Test 06/17/20 08:07 Glucose (Fingerstick) 194 mg/dL Current Medications Medications (Trade) Dose Ordered Sig/Samm Route PRN Reason Start Time Stop Time Status Last Admin Dose Admin Acetaminophen (Tylenol) 650 mg PRN Q4HRS PRN PO pain or fever 06/15/20 11:30 Bisacodyl (Dulcolax Supp) 10 mg PRN DAILY PRN RC CONSTIPATION 06/15/20 11:30 Clonazepam (KlonoPIN) 0.5 mg HS PO 06/15/20 21:00 06/17/20 20:10 Al Hydroxide/Mg Hydroxide (Mylanta Plus Xs) 30 ml Q6HRS PRN PO HEARTBURN/INDIGESTION 06/15/20 11:30 06/15/20 14:34 DC Nystatin (Nystop) 1 shay BID TP 06/15/20 21:00 06/17/20 20:10 Quetiapine Fumarate (SEROquel) 25 mg BID PO 06/15/20 21:00 06/17/20 20:10 Valproic Acid (Depakene) 500 mg DAILY PO 06/16/20 09:00 06/17/20 08:06 Valproic Acid (Depakene) 750 mg HS PO 06/15/20 21:00 06/17/20 20:10 Vitamin D (Vitamin D3) 500 unit DAILY PO 06/16/20 09:00 06/17/20 08:06 Citalopram Hydrobromide (CeleXA) 40 mg DAILY PO 06/16/20 09:00 06/17/20 08:06 Magnesium Hydroxide (Milk Of Magnesia) 2,400 mg PRN DAILY PRN PO CONSTIPATION 06/15/20 12:15 06/15/20 14:34 DC Non-Formulary Medication (Menthol (Biofreeze)) 1 shay Q6HRS TP 06/15/20 12:00 06/15/20 12:07 DC Metformin HCl (Glucophage) 1,000 mg BIDWMEALS PO 06/15/20 17:00 06/17/20 17:06 Multi-Ingredient Ointment (Analgesic [place]) 1 shay PRN Q6HRS PRN TP MUSCLE SPASTICITY 06/15/20 12:15 06/15/20 14:34 DC Ketoconazole (Nizoral 2% Shampoo) 1 shay MoTh TP 06/18/20 09:00 Acetaminophen (Tylenol) 650 mg PRN Q6HRS PRN PO MILD PAIN / TEMP > 100.3'F 06/15/20 12:15 UNV Multi-Ingredient Ointment (Analgesic [place]) 1 shay PRN QID PRN TP MUSCLE PAIN 06/15/20 12:15 Al Hydroxide/Mg Hydroxide (Mylanta Plus Xs) 15 ml PRN AFTMEALHC PRN PO DYSPEPSIA 06/15/20 12:15 Magnesium Hydroxide (Milk Of Magnesia) 2,400 mg PRN QHS PRN PO CONSTIPATION 06/15/20 12:15 Nicotine (Nicoderm Cq 14mg Patch) 1 patch DAILY TD 06/15/20 19:20 Glimepiride (Amaryl) 2 mg BIDWMEALS PO 06/17/20 17:00 06/17/20 17:06 Current Medications Medications (Trade) Dose Ordered Sig/Samm Route PRN Reason Start Time Stop Time Status Last Admin Dose Admin Glimepiride (Amaryl) 2 mg BIDWMEALS PO 06/17/20 17:00 06/17/20 17:06 I have reviewed the current psychotropics carefully including drug interactions. Risk benefit ratio favors no change other than as noted in my dictated progress note. Diagnosis: Problems: (1) Schizoaffective disorder, bipolar type (2) Impulse control disorder, unspecified (3) Anxiety disorder, unspecified (4) Bipolar disorder, curr episode mixed, severe, with psychotic features CAREN MALIK MD Jun 18, 2020 07:27
[2020-06-18 07:54] LABS: VAL ACID 91 mcg/mL (50-100)
--- NOTE | 2020-06-18 08:12 | PDOC ---
Exam Note: Kwasi Note: This note is a late entry for 06/17/2020 covers elements not covered in my initial note. Subjective: The patient was seen individually in the evening of 06/17/2020 with Carol GAUTAM, discussed and reviewed the chart. He slept 5-3/4 hours previous night. The patient has been demanding at times, wanting a special menu for his meals. A1c and blood sugars are elevated. We will defer to Dr. Ross. Valproic acid level was 95 at admission. We will repeat it in the morning as well. Review of Systems: Ambulation impaired in wheelchair. No CV, , pulmonary, eye, ENT system symptoms on review. Mental Status Exam: The patient is oriented to himself. Insight and judgment, recent and remote memory, attention and concentration, fund of knowledge is poor consistent with his diagnoses. Laboratory Data: Reviewed. Impression: Schizoaffective disorder, bipolar type mixed with psychotic features. Anxiety disorder unspecified. Impulse control disorder unspecified. Plan: No change from initial note. Assessment: Vital Signs/I&O: Vital Signs Date Time Temp Pulse Resp B/P (MAP) Pulse Ox O2 Delivery O2 Flow Rate FiO2 06/18/20 06:36 97.6 47 18 96/60 (72) 96 06/15/20 15:29 Room Air I & O 06/17/20 06/17/20 06/18/20 15:00 23:00 07:00 Intake Total 480 ml 240 ml 120 ml Balance 480 ml 240 ml 120 ml Labs: Laboratory Tests Test 06/18/20 06:43 06/18/20 07:32 Valproic Acid Level 91 mcg/mL (50-100) Valproic Acid Last Dose Date 06/17/2020 Valproic Acid Last Dose Time 2100 Glucose (Fingerstick) 134 mg/dL (70-99) H Current Medications: Meds: Laboratory Tests Test 06/18/20 06:43 06/18/20 07:32 Valproic Acid (Depakene) Level 91 mcg/mL Valproic Acid Last Dose Date 06/17/2020 Valproic Acid Last Dose Time 2100 Glucose (Fingerstick) 134 mg/dL Current Medications Medications (Trade) Dose Ordered Sig/Samm Route PRN Reason Start Time Stop Time Status Last Admin Dose Admin Acetaminophen (Tylenol) 650 mg PRN Q4HRS PRN PO pain or fever 06/15/20 11:30 Bisacodyl (Dulcolax Supp) 10 mg PRN DAILY PRN RC CONSTIPATION 06/15/20 11:30 Clonazepam (KlonoPIN) 0.5 mg HS PO 06/15/20 21:00 06/17/20 20:10 Al Hydroxide/Mg Hydroxide (Mylanta Plus Xs) 30 ml Q6HRS PRN PO HEARTBURN/INDIGESTION 06/15/20 11:30 06/15/20 14:34 DC Nystatin (Nystop) 1 shay BID TP 06/15/20 21:00 06/17/20 20:10 Quetiapine Fumarate (SEROquel) 25 mg BID PO 06/15/20 21:00 06/17/20 20:10 Valproic Acid (Depakene) 500 mg DAILY PO 06/16/20 09:00 06/17/20 08:06 Valproic Acid (Depakene) 750 mg HS PO 06/15/20 21:00 06/17/20 20:10 Vitamin D (Vitamin D3) 500 unit DAILY PO 06/16/20 09:00 06/17/20 08:06 Citalopram Hydrobromide (CeleXA) 40 mg DAILY PO 06/16/20 09:00 06/17/20 08:06 Magnesium Hydroxide (Milk Of Magnesia) 2,400 mg PRN DAILY PRN PO CONSTIPATION 06/15/20 12:15 06/15/20 14:34 DC Non-Formulary Medication (Menthol (Biofreeze)) 1 shay Q6HRS TP 06/15/20 12:00 06/15/20 12:07 DC Metformin HCl (Glucophage) 1,000 mg BIDWMEALS PO 06/15/20 17:00 06/17/20 17:06 Multi-Ingredient Ointment (Analgesic [place]) 1 shay PRN Q6HRS PRN TP MUSCLE SPASTICITY 06/15/20 12:15 06/15/20 14:34 DC Ketoconazole (Nizoral 2% Shampoo) 1 shay MoTh TP 06/18/20 09:00 Acetaminophen (Tylenol) 650 mg PRN Q6HRS PRN PO MILD PAIN / TEMP > 100.3'F 06/15/20 12:15 UNV Multi-Ingredient Ointment (Analgesic [place]) 1 shay PRN QID PRN TP MUSCLE PAIN 06/15/20 12:15 Al Hydroxide/Mg Hydroxide (Mylanta Plus Xs) 15 ml PRN AFTMEALHC PRN PO DYSPEPSIA 06/15/20 12:15 Magnesium Hydroxide (Milk Of Magnesia) 2,400 mg PRN QHS PRN PO CONSTIPATION 06/15/20 12:15 Nicotine (Nicoderm Cq 14mg Patch) 1 patch DAILY TD 06/15/20 19:20 Glimepiride (Amaryl) 2 mg BIDWMEALS PO 06/17/20 17:00 06/17/20 17:06 Current Medications Medications (Trade) Dose Ordered Sig/Samm Route PRN Reason Start Time Stop Time Status Last Admin Dose Admin Glimepiride (Amaryl) 2 mg BIDWMEALS PO 06/17/20 17:00 06/17/20 17:06 I have reviewed the current psychotropics carefully including drug interactions. Risk benefit ratio favors no change other than as noted in my dictated progress note. Diagnosis: Problems: (1) Schizoaffective disorder, bipolar type (2) Impulse control disorder, unspecified (3) Anxiety disorder, unspecified (4) Bipolar disorder, curr episode mixed, severe, with psychotic features CAREN MALIK MD Jun 18, 2020 08:12
[2020-06-18] MEDS: CHOLECALCIFEROL (VITAMIN D3) 1,000 UNIT TABLET PO SCH (08:41)
[2020-06-18] MEDS: VALPROIC ACID 250 MG CAPSULE. PO SCH ×2 (08:41→20:44)
[2020-06-18] MEDS: metFORMIN 500 MG TABLET PO SCH ×2 (08:41→16:11)
[2020-06-18] MEDS: NICOTINE 14MG PATCH. TD SCH (08:41)
[2020-06-18] MEDS: GLIMEPIRIDE 2 MG TABLET PO SCH ×2 (08:41→16:11)
[2020-06-18] MEDS: QUEtiapine 25 MG TABLET. PO SCH ×2 (08:41→20:44)
[2020-06-18] MEDS: CITALOPRAM 20 MG TABLET. PO SCH (08:41)
[2020-06-18] MEDS: NYSTATIN TOPICAL POWDER 15GM BOTTLE. TP SCH ×2 (09:00→20:46)
[2020-06-18] MEDS: KETOCONAZOLE 2% SHAMPOO 120ML BOTTLE. TP SCH (09:00)
--- NOTE | 2020-06-18 14:47 | TX PLAN ---
Interdisciplinary Tx Plan Admission Information Jun 15, 2020 at 10:35 Legal Status (on Admission): Voluntary DPOA/Guardian Name: Self Sign Other Contact Name: Jl COHEN at [facility] Other Contact Verified Code Status: Full Code Allergies: Coded Allergies: Influenza Virus Vaccines (Verified Allergy, Unknown, Anaphylaxis, 06/15/20) egg (Verified Allergy, Unknown, 12/21/19) Estimated Length of Stay: 14 Diagnoses Primary Diagnosis: Schizoaffective d/o bipolar type mixed with psychotic features; anxiety d/o unspecified; impulse control d/o Reasons for Admission: Aggressive, Relation/conflict, Agitated, Depressed, Angry, Poor impulse control Problem in Patient's Words: Per Pavan, "I need to get my blood checked for my medications. There were some stress factors with people there (at [facility]) making me mad and blow up." Problems Active Problems: verbally agressive, yelling at peers causing them to feel demeaned, agitated depressed anxious flipping staff off and telling them "fuck you." Inactive Problems: Adequate sleep Medication compliant Pt Strengths/Limitations Ability for [place]: Poor Cognitive Functioning/Ability: Fair Communication Skills/Ability: Fair Financial Resources: Fair Insight/Judgement: Poor Intellectual Ability: Fair Physical Health: Fair Social Skills: Fair Stability in Family: Poor Verbal Skills: Fair Discharge Criteria Discharge Criteria: Adequate arrangements @DC, Improved behavior, Improved mood/thought Preliminary Discharge Plan Preliminary DC Plan: [facility] Other Arrangements: [facility] vs. [facility] Special Precautions Special Precautions: Agitation/Assault Fall Risk: High Initial D/C Plan [facility] vs. [facility] Identified Discharge Needs: F/U with PCP, Psychiatrist, arrange for counseling if available. Currently Utilized Resources Currently Utilized Resources/P: PCP Out patient psychiatry 24 hour care at [facility] Referrals Community Resources: Counseling if available Identified Problems/Hx/Goals Objectives/Short-Term Goals Short Term Goals: Control abnormal behavior, Dec. Aggression, Dec. Anxiety/Panic, Dec. Outbursts, Dec. Symp. Depression, Improved Social Skills, Medication Stabilization, Monitor Med Effects, Promote Coping Skill Short Term Goals in Patient's: Per Pavan, "Get my medicines balanced out, I have to at least once a year." Interventions/Frequency Staff Interventions/Frequency&: Nursing to provide routine safety checks, medication administration, and adl support. Psychiatrist to see three times week. SW to visit twice weekly. Recreation and SW groups as Pavan will join. History Vocational History: Pavan is on disability. Social: Pavan enjoys watching television, states he likes his privacy. Education: Pavan graduated high school. Community Follow-up PCP Out pt. 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
[2020-06-18 15:52] VITALS: BP 118/77
[2020-06-18] MEDS: AMOXICILLIN 250 MG CAPSULE PO SCH ×2 (16:11→20:44)
[2020-06-18] MEDS: clonazePAM 0.5 MG TABLET PO SCH (20:44)
[2020-06-18] MEDS: LACTOBACILLUS RHAMNOSUS GG 1 CAPSULE. PO SCH (20:44)
--- NOTE | 2020-06-18 21:59 | PDOC ---
Exam Note: Kwasi Note: Please also refer to the separate dictated note~for this date of service dictated separately.~Patient seen individually. Discussed the patient with Nursing staff reviewed the chart.~Reviewed interim history and current functioning. Reviewed vital signs,~Labs/ Radiology~and current medications noted below. Continue current treatment with the changes noted in the dictated addendum note Assessment: Vital Signs/I&O: Vital Signs Date Time Temp Pulse Resp B/P (MAP) Pulse Ox O2 Delivery O2 Flow Rate FiO2 06/18/20 15:52 97.2 57 16 118/77 (91) 95 Room Air I & O 06/17/20 06/17/20 06/18/20 15:00 23:00 07:00 Intake Total 480 ml 240 ml 120 ml Balance 480 ml 240 ml 120 ml Labs: Laboratory Tests Test 06/18/20 06:43 06/18/20 07:32 Valproic Acid Level 91 mcg/mL (50-100) Valproic Acid Last Dose Date 06/17/2020 Valproic Acid Last Dose Time 2100 Glucose (Fingerstick) 134 mg/dL (70-99) H Current Medications: Meds: Laboratory Tests Test 06/18/20 06:43 06/18/20 07:32 Valproic Acid (Depakene) Level 91 mcg/mL Valproic Acid Last Dose Date 06/17/2020 Valproic Acid Last Dose Time 2100 Glucose (Fingerstick) 134 mg/dL Current Medications Medications (Trade) Dose Ordered Sig/Samm Route PRN Reason Start Time Stop Time Status Last Admin Dose Admin Acetaminophen (Tylenol) 650 mg PRN Q4HRS PRN PO pain or fever 06/15/20 11:30 Bisacodyl (Dulcolax Supp) 10 mg PRN DAILY PRN RC CONSTIPATION 06/15/20 11:30 Clonazepam (KlonoPIN) 0.5 mg HS PO 06/15/20 21:00 06/18/20 20:44 Al Hydroxide/Mg Hydroxide (Mylanta Plus Xs) 30 ml Q6HRS PRN PO HEARTBURN/INDIGESTION 06/15/20 11:30 06/15/20 14:34 DC Nystatin (Nystop) 1 shay BID TP 06/15/20 21:00 06/18/20 20:46 Quetiapine Fumarate (SEROquel) 25 mg BID PO 06/15/20 21:00 06/18/20 20:44 Valproic Acid (Depakene) 500 mg DAILY PO 06/16/20 09:00 06/18/20 08:41 Valproic Acid (Depakene) 750 mg HS PO 06/15/20 21:00 06/18/20 20:44 Vitamin D (Vitamin D3) 500 unit DAILY PO 06/16/20 09:00 06/18/20 08:41 Citalopram Hydrobromide (CeleXA) 40 mg DAILY PO 06/16/20 09:00 06/18/20 11:56 DC 06/18/20 08:41 Magnesium Hydroxide (Milk Of Magnesia) 2,400 mg PRN DAILY PRN PO CONSTIPATION 06/15/20 12:15 06/15/20 14:34 DC Non-Formulary Medication (Menthol (Biofreeze)) 1 shay Q6HRS TP 06/15/20 12:00 06/15/20 12:07 DC Metformin HCl (Glucophage) 1,000 mg BIDWMEALS PO 06/15/20 17:00 06/18/20 16:11 Multi-Ingredient Ointment (Analgesic [place]) 1 shay PRN Q6HRS PRN TP MUSCLE SPASTICITY 06/15/20 12:15 06/15/20 14:34 DC Ketoconazole (Nizoral 2% Shampoo) 1 shay MoTh TP 06/18/20 09:00 Acetaminophen (Tylenol) 650 mg PRN Q6HRS PRN PO MILD PAIN / TEMP > 100.3'F 06/15/20 12:15 UNV Multi-Ingredient Ointment (Analgesic [place]) 1 shay PRN QID PRN TP MUSCLE PAIN 06/15/20 12:15 Al Hydroxide/Mg Hydroxide (Mylanta Plus Xs) 15 ml PRN AFTMEALHC PRN PO DYSPEPSIA 06/15/20 12:15 Magnesium Hydroxide (Milk Of Magnesia) 2,400 mg PRN QHS PRN PO CONSTIPATION 06/15/20 12:15 Nicotine (Nicoderm Cq 14mg Patch) 1 patch DAILY TD 06/15/20 19:20 Glimepiride (Amaryl) 2 mg BIDWMEALS PO 06/17/20 17:00 06/18/20 16:11 Fluvoxamine Maleate (Luvox) 25 mg DAILY08 PO 06/19/20 08:00 06/21/20 23:50 Fluvoxamine Maleate (Luvox) 50 mg DAILY08 PO 06/22/20 08:00 Amoxicillin (Amoxil) 500 mg [id number] PO 06/18/20 15:15 06/28/20 15:14 06/18/20 20:44 Lactobacillus Rhamnosus (Culturelle) 1 cap BID PO 06/18/20 21:00 06/18/20 20:44 Current Medications Medications (Trade) Dose Ordered Sig/Samm Route PRN Reason Start Time Stop Time Status Last Admin Dose Admin Amoxicillin (Amoxil) 500 mg [id number] PO 06/18/20 15:15 06/28/20 15:14 06/18/20 20:44 Lactobacillus Rhamnosus (Culturelle) 1 cap BID PO 06/18/20 21:00 06/18/20 20:44 I have reviewed the current psychotropics carefully including drug interactions. Risk benefit ratio favors no change other than as noted in my dictated progress note. Diagnosis: Problems: (1) Schizoaffective disorder, bipolar type (2) Impulse control disorder, unspecified (3) Anxiety disorder, unspecified (4) Bipolar disorder, curr episode mixed, severe, with psychotic features CAREN MALIK MD Jun 18, 2020 21:59
[2020-06-19 06:31] VITALS: BP 92/61
[2020-06-19] MEDS: QUEtiapine 25 MG TABLET. PO SCH ×2 (08:23→21:15)
[2020-06-19] MEDS: metFORMIN 500 MG TABLET PO SCH ×2 (08:23→17:27)
[2020-06-19] MEDS: CHOLECALCIFEROL (VITAMIN D3) 1,000 UNIT TABLET PO SCH (08:23)
[2020-06-19] MEDS: GLIMEPIRIDE 2 MG TABLET PO SCH ×2 (08:23→17:27)
[2020-06-19] MEDS: LACTOBACILLUS RHAMNOSUS GG 1 CAPSULE. PO SCH ×2 (08:23→21:15)
[2020-06-19] MEDS: AMOXICILLIN 250 MG CAPSULE PO SCH ×3 (08:23→21:15)
[2020-06-19] MEDS: VALPROIC ACID 250 MG CAPSULE. PO SCH ×2 (08:23→21:15)
[2020-06-19] MEDS: NYSTATIN TOPICAL POWDER 15GM BOTTLE. TP SCH ×2 (08:24→21:15)
[2020-06-19] MEDS: NICOTINE 14MG PATCH. TD SCH ×2 (08:24→09:00)
[2020-06-19 15:19] VITALS: BP 112/77
[2020-06-19] MEDS: clonazePAM 0.5 MG TABLET PO SCH (21:15)
--- NOTE | 2020-06-19 21:51 | PDOC ---
Exam Note: Kwasi Note: Please also refer to the separate dictated note~for this date of service dictated separately.~Patient seen individually. Discussed the patient with Nursing staff reviewed the chart.~Reviewed interim history and current functioning. Reviewed vital signs,~Labs/ Radiology~and current medications noted below. Continue current treatment with the changes noted in the dictated addendum note Assessment: Vital Signs/I&O: Vital Signs Date Time Temp Pulse Resp B/P (MAP) Pulse Ox O2 Delivery O2 Flow Rate FiO2 06/19/20 15:19 97.8 66 16 112/77 (89) 99 06/19/20 06:31 Room Air I & O 06/18/20 06/18/20 06/19/20 15:00 23:00 07:00 Intake Total 700 ml 360 ml Balance 700 ml 360 ml Labs: Laboratory Tests Test 06/19/20 07:46 Glucose (Fingerstick) 187 mg/dL (70-99) H Current Medications: Meds: Laboratory Tests Test 06/19/20 07:46 Glucose (Fingerstick) 187 mg/dL Current Medications Medications (Trade) Dose Ordered Sig/Samm Route PRN Reason Start Time Stop Time Status Last Admin Dose Admin Acetaminophen (Tylenol) 650 mg PRN Q4HRS PRN PO pain or fever 06/15/20 11:30 Bisacodyl (Dulcolax Supp) 10 mg PRN DAILY PRN RC CONSTIPATION 06/15/20 11:30 Clonazepam (KlonoPIN) 0.5 mg HS PO 06/15/20 21:00 06/19/20 21:15 Al Hydroxide/Mg Hydroxide (Mylanta Plus Xs) 30 ml Q6HRS PRN PO HEARTBURN/INDIGESTION 06/15/20 11:30 06/15/20 14:34 DC Nystatin (Nystop) 1 shay BID TP 06/15/20 21:00 06/19/20 21:15 Quetiapine Fumarate (SEROquel) 25 mg BID PO 06/15/20 21:00 06/19/20 21:15 Valproic Acid (Depakene) 500 mg DAILY PO 06/16/20 09:00 06/19/20 08:23 Valproic Acid (Depakene) 750 mg HS PO 06/15/20 21:00 06/19/20 21:15 Vitamin D (Vitamin D3) 500 unit DAILY PO 06/16/20 09:00 06/19/20 08:23 Citalopram Hydrobromide (CeleXA) 40 mg DAILY PO 06/16/20 09:00 06/18/20 11:56 DC 06/18/20 08:41 Magnesium Hydroxide (Milk Of Magnesia) 2,400 mg PRN DAILY PRN PO CONSTIPATION 06/15/20 12:15 06/15/20 14:34 DC Non-Formulary Medication (Menthol (Biofreeze)) 1 shay Q6HRS TP 06/15/20 12:00 06/15/20 12:07 DC Metformin HCl (Glucophage) 1,000 mg BIDWMEALS PO 06/15/20 17:00 06/19/20 17:27 Multi-Ingredient Ointment (Analgesic [place]) 1 shay PRN Q6HRS PRN TP MUSCLE SPASTICITY 06/15/20 12:15 06/15/20 14:34 DC Ketoconazole (Nizoral 2% Shampoo) 1 shay MoTh TP 06/18/20 09:00 Acetaminophen (Tylenol) 650 mg PRN Q6HRS PRN PO MILD PAIN / TEMP > 100.3'F 06/15/20 12:15 UNV Multi-Ingredient Ointment (Analgesic [place]) 1 shay PRN QID PRN TP MUSCLE PAIN 06/15/20 12:15 Al Hydroxide/Mg Hydroxide (Mylanta Plus Xs) 15 ml PRN AFTMEALHC PRN PO DYSPEPSIA 06/15/20 12:15 Magnesium Hydroxide (Milk Of Magnesia) 2,400 mg PRN QHS PRN PO CONSTIPATION 06/15/20 12:15 Nicotine (Nicoderm Cq 14mg Patch) 1 patch DAILY TD 06/15/20 19:20 Glimepiride (Amaryl) 2 mg BIDWMEALS PO 06/17/20 17:00 06/19/20 17:27 Fluvoxamine Maleate (Luvox) 25 mg DAILY08 PO 06/19/20 08:00 06/21/20 23:50 06/19/20 08:24 Fluvoxamine Maleate (Luvox) 50 mg DAILY08 PO 06/22/20 08:00 Amoxicillin (Amoxil) 500 mg [id number] PO 06/18/20 15:15 06/28/20 15:14 06/19/20 21:15 Lactobacillus Rhamnosus (Culturelle) 1 cap BID PO 06/18/20 21:00 06/19/20 21:15 Current Medications Medications (Trade) Dose Ordered Sig/Samm Route PRN Reason Start Time Stop Time Status Last Admin Dose Admin Fluvoxamine Maleate (Luvox) 25 mg DAILY08 PO 06/19/20 08:00 06/21/20 23:50 06/19/20 08:24 I have reviewed the current psychotropics carefully including drug interactions. Risk benefit ratio favors no change other than as noted in my dictated progress note. Diagnosis: Problems: (1) Schizoaffective disorder, bipolar type (2) Impulse control disorder, unspecified (3) Anxiety disorder, unspecified (4) Bipolar disorder, curr episode mixed, severe, with psychotic features CAREN MALIK MD Jun 19, 2020 21:51
[2020-06-20 05:52] VITALS: BP 108/62
--- NOTE | 2020-06-20 06:44 | PDOC ---
Exam Note: Kwasi Note: This note is a late entry for 06/18/2020 covers elements not covered in my initial note. Subjective: The patient was reviewed in the morning of 06/18/2020 for a treatment team meeting with Latia Gil, Kylah Newman and Marlyn (director of social work), Mariana, activity therapy and Jackie RN, discussed and reviewed the chart. He slept 8-1/4 hours previous night. The patient has been quite obsessive about his bowels. He has been put on toileting schedule every hour otherwise, it is difficult for nursing staff to manage him. Valproic acid level is 95 and A1c is 12.5. TSH 8.49. We will defer to Dr. Ross. Discussed with Александр GAUTAM in the evening. No new behaviors other than the obsessiveness regarding the bladder function. Review of Systems: Ambulation impaired in wheelchair. No CV, , pulmonary, eye, ENT system symptoms on review. Mental Status Exam: The patient is oriented to himself. He was pleasant, verbal, and interactive as I met with him. Insight and judgment, recent and remote memory, attention and concentration, fund of knowledge is poor consistent with his diagnoses. No suicidal or homicidal ideation. Laboratory Data: Reviewed. Impression: Schizoaffective disorder, bipolar type mixed with psychotic features. Anxiety disorder unspecified. Impulse control disorder unspecified. Plan: No change from initial note. We will change the Celexa 40 mg a day to Luvox 25 mg a day for 3 days and then 50 mg a day. Manage hypothyroidism per Dr. Ross. Assessment: Vital Signs/I&O: Vital Signs Date Time Temp Pulse Resp B/P (MAP) Pulse Ox O2 Delivery O2 Flow Rate FiO2 06/20/20 05:52 96.0 68 20 108/62 (77) 94 Room Air I & O 06/19/20 06/19/20 06/20/20 15:00 23:00 07:00 Intake Total 360 ml 120 ml Balance 360 ml 120 ml Labs: Laboratory Tests Test 06/19/20 07:46 Glucose (Fingerstick) 187 mg/dL (70-99) H Current Medications: Meds: Laboratory Tests Test 06/19/20 07:46 Glucose (Fingerstick) 187 mg/dL Current Medications Medications (Trade) Dose Ordered Sig/Samm Route PRN Reason Start Time Stop Time Status Last Admin Dose Admin Acetaminophen (Tylenol) 650 mg PRN Q4HRS PRN PO pain or fever 06/15/20 11:30 Bisacodyl (Dulcolax Supp) 10 mg PRN DAILY PRN RC CONSTIPATION 06/15/20 11:30 Clonazepam (KlonoPIN) 0.5 mg HS PO 06/15/20 21:00 06/19/20 21:15 Al Hydroxide/Mg Hydroxide (Mylanta Plus Xs) 30 ml Q6HRS PRN PO HEARTBURN/INDIGESTION 06/15/20 11:30 06/15/20 14:34 DC Nystatin (Nystop) 1 shay BID TP 06/15/20 21:00 06/19/20 21:15 Quetiapine Fumarate (SEROquel) 25 mg BID PO 06/15/20 21:00 06/19/20 21:15 Valproic Acid (Depakene) 500 mg DAILY PO 06/16/20 09:00 06/19/20 08:23 Valproic Acid (Depakene) 750 mg HS PO 06/15/20 21:00 06/19/20 21:15 Vitamin D (Vitamin D3) 500 unit DAILY PO 06/16/20 09:00 06/19/20 08:23 Citalopram Hydrobromide (CeleXA) 40 mg DAILY PO 06/16/20 09:00 06/18/20 11:56 DC 06/18/20 08:41 Magnesium Hydroxide (Milk Of Magnesia) 2,400 mg PRN DAILY PRN PO CONSTIPATION 06/15/20 12:15 06/15/20 14:34 DC Non-Formulary Medication (Menthol (Biofreeze)) 1 shay Q6HRS TP 06/15/20 12:00 06/15/20 12:07 DC Metformin HCl (Glucophage) 1,000 mg BIDWMEALS PO 06/15/20 17:00 06/19/20 17:27 Multi-Ingredient Ointment (Analgesic [place]) 1 shay PRN Q6HRS PRN TP MUSCLE SPASTICITY 06/15/20 12:15 06/15/20 14:34 DC Ketoconazole (Nizoral 2% Shampoo) 1 shay MoTh TP 06/18/20 09:00 Acetaminophen (Tylenol) 650 mg PRN Q6HRS PRN PO MILD PAIN / TEMP > 100.3'F 06/15/20 12:15 UNV Multi-Ingredient Ointment (Analgesic [place]) 1 shay PRN QID PRN TP MUSCLE PAIN 06/15/20 12:15 Al Hydroxide/Mg Hydroxide (Mylanta Plus Xs) 15 ml PRN AFTMEALHC PRN PO DYSPEPSIA 06/15/20 12:15 Magnesium Hydroxide (Milk Of Magnesia) 2,400 mg PRN QHS PRN PO CONSTIPATION 06/15/20 12:15 Nicotine (Nicoderm Cq 14mg Patch) 1 patch DAILY TD 06/15/20 19:20 Glimepiride (Amaryl) 2 mg BIDWMEALS PO 06/17/20 17:00 06/19/20 17:27 Fluvoxamine Maleate (Luvox) 25 mg DAILY08 PO 06/19/20 08:00 06/21/20 23:50 06/19/20 08:24 Fluvoxamine Maleate (Luvox) 50 mg DAILY08 PO 06/22/20 08:00 Amoxicillin (Amoxil) 500 mg [id number] PO 06/18/20 15:15 06/28/20 15:14 06/19/20 21:15 Lactobacillus Rhamnosus (Culturelle) 1 cap BID PO 06/18/20 21:00 06/19/20 21:15 Current Medications Medications (Trade) Dose Ordered Sig/Samm Route PRN Reason Start Time Stop Time Status Last Admin Dose Admin Fluvoxamine Maleate (Luvox) 25 mg DAILY08 PO 06/19/20 08:00 06/21/20 23:50 06/19/20 08:24 I have reviewed the current psychotropics carefully including drug interactions. Risk benefit ratio favors no change other than as noted in my dictated progress note. Diagnosis: Problems: (1) Schizoaffective disorder, bipolar type (2) Impulse control disorder, unspecified (3) Anxiety disorder, unspecified (4) Bipolar disorder, curr episode mixed, severe, with psychotic features CAREN MALIK MD Jun 20, 2020 06:44
--- NOTE | 2020-06-20 07:24 | PDOC ---
Exam Note: Kwasi Note: This note is a late entry for 06/19/2020 covers elements not covered in my initial note. Subjective: The patient was seen individually in the evening of 06/19/2020 with Keshia GAUTAM, discussed and reviewed the chart. He slept 7 hours previous night. The patient acts helpless at times, but done better during the day today. Review of Systems: Ambulation impaired in wheelchair. No CV, , pulmonary, eye, ENT system symptoms on review. Mental Status Exam: The patient is oriented to himself. I met with him on 2 separate occasions on rounds. He had many questions about placements post discharge and the nurse pleased to hear that he might be going back to [facility] rather than another facility. Insight and judgment, recent and remote memory, attention and concentration, fund of knowledge is poor consistent with his diagnoses. No suicidal or homicidal ideation. Laboratory Data: Reviewed. Impression: Schizoaffective disorder, bipolar type mixed with psychotic features. Anxiety disorder unspecified. Impulse control disorder unspecified. Plan: No change from initial note. Assessment: Vital Signs/I&O: Vital Signs Date Time Temp Pulse Resp B/P (MAP) Pulse Ox O2 Delivery O2 Flow Rate FiO2 06/20/20 05:52 96.0 68 20 108/62 (77) 94 Room Air I & O 06/19/20 06/19/20 06/20/20 15:00 23:00 07:00 Intake Total 360 ml 120 ml Balance 360 ml 120 ml Labs: Laboratory Tests Test 06/19/20 07:46 Glucose (Fingerstick) 187 mg/dL (70-99) H Current Medications: Meds: Laboratory Tests Test 06/19/20 07:46 Glucose (Fingerstick) 187 mg/dL Current Medications Medications (Trade) Dose Ordered Sig/Samm Route PRN Reason Start Time Stop Time Status Last Admin Dose Admin Acetaminophen (Tylenol) 650 mg PRN Q4HRS PRN PO pain or fever 06/15/20 11:30 Bisacodyl (Dulcolax Supp) 10 mg PRN DAILY PRN RC CONSTIPATION 06/15/20 11:30 Clonazepam (KlonoPIN) 0.5 mg HS PO 06/15/20 21:00 06/19/20 21:15 Al Hydroxide/Mg Hydroxide (Mylanta Plus Xs) 30 ml Q6HRS PRN PO HEARTBURN/INDIGESTION 06/15/20 11:30 06/15/20 14:34 DC Nystatin (Nystop) 1 shay BID TP 06/15/20 21:00 06/19/20 21:15 Quetiapine Fumarate (SEROquel) 25 mg BID PO 06/15/20 21:00 06/19/20 21:15 Valproic Acid (Depakene) 500 mg DAILY PO 06/16/20 09:00 06/19/20 08:23 Valproic Acid (Depakene) 750 mg HS PO 06/15/20 21:00 06/19/20 21:15 Vitamin D (Vitamin D3) 500 unit DAILY PO 06/16/20 09:00 06/19/20 08:23 Citalopram Hydrobromide (CeleXA) 40 mg DAILY PO 06/16/20 09:00 06/18/20 11:56 DC 06/18/20 08:41 Magnesium Hydroxide (Milk Of Magnesia) 2,400 mg PRN DAILY PRN PO CONSTIPATION 06/15/20 12:15 06/15/20 14:34 DC Non-Formulary Medication (Menthol (Biofreeze)) 1 shay Q6HRS TP 06/15/20 12:00 06/15/20 12:07 DC Metformin HCl (Glucophage) 1,000 mg BIDWMEALS PO 06/15/20 17:00 06/19/20 17:27 Multi-Ingredient Ointment (Analgesic [place]) 1 shay PRN Q6HRS PRN TP MUSCLE SPASTICITY 06/15/20 12:15 06/15/20 14:34 DC Ketoconazole (Nizoral 2% Shampoo) 1 shay MoTh TP 06/18/20 09:00 Acetaminophen (Tylenol) 650 mg PRN Q6HRS PRN PO MILD PAIN / TEMP > 100.3'F 06/15/20 12:15 UNV Multi-Ingredient Ointment (Analgesic [place]) 1 shay PRN QID PRN TP MUSCLE PAIN 06/15/20 12:15 Al Hydroxide/Mg Hydroxide (Mylanta Plus Xs) 15 ml PRN AFTMEALHC PRN PO DYSPEPSIA 06/15/20 12:15 Magnesium Hydroxide (Milk Of Magnesia) 2,400 mg PRN QHS PRN PO CONSTIPATION 06/15/20 12:15 Nicotine (Nicoderm Cq 14mg Patch) 1 patch DAILY TD 06/15/20 19:20 Glimepiride (Amaryl) 2 mg BIDWMEALS PO 06/17/20 17:00 06/19/20 17:27 Fluvoxamine Maleate (Luvox) 25 mg DAILY08 PO 06/19/20 08:00 06/21/20 23:50 06/19/20 08:24 Fluvoxamine Maleate (Luvox) 50 mg DAILY08 PO 06/22/20 08:00 Amoxicillin (Amoxil) 500 mg [id number] PO 06/18/20 15:15 06/28/20 15:14 06/19/20 21:15 Lactobacillus Rhamnosus (Culturelle) 1 cap BID PO 06/18/20 21:00 06/19/20 21:15 Current Medications Medications (Trade) Dose Ordered Sig/Samm Route PRN Reason Start Time Stop Time Status Last Admin Dose Admin Fluvoxamine Maleate (Luvox) 25 mg DAILY08 PO 06/19/20 08:00 06/21/20 23:50 06/19/20 08:24 I have reviewed the current psychotropics carefully including drug interactions. Risk benefit ratio favors no change other than as noted in my dictated progress note. Diagnosis: Problems: (1) Schizoaffective disorder, bipolar type (2) Impulse control disorder, unspecified (3) Anxiety disorder, unspecified (4) Bipolar disorder, curr episode mixed, severe, with psychotic features CAREN MALIK MD Jun 20, 2020 07:24
[2020-06-20] MEDS: CHOLECALCIFEROL (VITAMIN D3) 1,000 UNIT TABLET PO SCH (08:01)
[2020-06-20] MEDS: metFORMIN 500 MG TABLET PO SCH ×2 (08:01→17:15)
[2020-06-20] MEDS: AMOXICILLIN 250 MG CAPSULE PO SCH ×3 (08:01→21:17)
[2020-06-20] MEDS: QUEtiapine 25 MG TABLET. PO SCH ×2 (08:01→21:17)
[2020-06-20] MEDS: NICOTINE 14MG PATCH. TD SCH (08:02)
[2020-06-20] MEDS: LACTOBACILLUS RHAMNOSUS GG 1 CAPSULE. PO SCH ×2 (08:02→21:17)
[2020-06-20] MEDS: VALPROIC ACID 250 MG CAPSULE. PO SCH ×2 (08:02→21:17)
[2020-06-20] MEDS: GLIMEPIRIDE 2 MG TABLET PO SCH ×2 (08:02→17:15)
[2020-06-20] MEDS: NYSTATIN TOPICAL POWDER 15GM BOTTLE. TP SCH ×2 (09:00→21:26)
[2020-06-20 16:01] VITALS: BP 124/75
[2020-06-20] MEDS: clonazePAM 0.5 MG TABLET PO SCH (21:16)
--- NOTE | 2020-06-20 22:01 | PDOC ---
Exam Note: Kwasi Note: Please also refer to the separate dictated note~for this date of service dictated separately.~Patient seen individually. Discussed the patient with Nursing staff reviewed the chart.~Reviewed interim history and current functioning. Reviewed vital signs,~Labs/ Radiology~and current medications noted below. Continue current treatment with the changes noted in the dictated addendum note Assessment: Vital Signs/I&O: Vital Signs Date Time Temp Pulse Resp B/P (MAP) Pulse Ox O2 Delivery O2 Flow Rate FiO2 06/20/20 16:01 98.1 48 16 124/75 (91) 94 06/20/20 05:52 Room Air I & O 06/19/20 06/19/20 06/20/20 15:00 23:00 07:00 Intake Total 360 ml 120 ml Balance 360 ml 120 ml Labs: Laboratory Tests Test 06/20/20 07:42 Glucose (Fingerstick) 123 mg/dL (70-99) H Current Medications: Meds: Laboratory Tests Test 06/20/20 07:42 Glucose (Fingerstick) 123 mg/dL Current Medications Medications (Trade) Dose Ordered Sig/Samm Route PRN Reason Start Time Stop Time Status Last Admin Dose Admin Acetaminophen (Tylenol) 650 mg PRN Q4HRS PRN PO pain or fever 06/15/20 11:30 Bisacodyl (Dulcolax Supp) 10 mg PRN DAILY PRN RC CONSTIPATION 06/15/20 11:30 Clonazepam (KlonoPIN) 0.5 mg HS PO 06/15/20 21:00 06/20/20 21:16 Al Hydroxide/Mg Hydroxide (Mylanta Plus Xs) 30 ml Q6HRS PRN PO HEARTBURN/INDIGESTION 06/15/20 11:30 06/15/20 14:34 DC Nystatin (Nystop) 1 shay BID TP 06/15/20 21:00 06/20/20 21:26 Quetiapine Fumarate (SEROquel) 25 mg BID PO 06/15/20 21:00 06/20/20 21:17 Valproic Acid (Depakene) 500 mg DAILY PO 06/16/20 09:00 06/20/20 08:02 Valproic Acid (Depakene) 750 mg HS PO 06/15/20 21:00 06/20/20 21:17 Vitamin D (Vitamin D3) 500 unit DAILY PO 06/16/20 09:00 06/20/20 08:01 Citalopram Hydrobromide (CeleXA) 40 mg DAILY PO 06/16/20 09:00 06/18/20 11:56 DC 06/18/20 08:41 Magnesium Hydroxide (Milk Of Magnesia) 2,400 mg PRN DAILY PRN PO CONSTIPATION 06/15/20 12:15 06/15/20 14:34 DC Non-Formulary Medication (Menthol (Biofreeze)) 1 shay Q6HRS TP 06/15/20 12:00 06/15/20 12:07 DC Metformin HCl (Glucophage) 1,000 mg BIDWMEALS PO 06/15/20 17:00 06/20/20 17:15 Multi-Ingredient Ointment (Analgesic [place]) 1 shay PRN Q6HRS PRN TP MUSCLE SPASTICITY 06/15/20 12:15 06/15/20 14:34 DC Ketoconazole (Nizoral 2% Shampoo) 1 shay MoTh TP 06/18/20 09:00 Acetaminophen (Tylenol) 650 mg PRN Q6HRS PRN PO MILD PAIN / TEMP > 100.3'F 06/15/20 12:15 UNV Multi-Ingredient Ointment (Analgesic [place]) 1 shay PRN QID PRN TP MUSCLE PAIN 06/15/20 12:15 Al Hydroxide/Mg Hydroxide (Mylanta Plus Xs) 15 ml PRN AFTMEALHC PRN PO DYSPEPSIA 06/15/20 12:15 Magnesium Hydroxide (Milk Of Magnesia) 2,400 mg PRN QHS PRN PO CONSTIPATION 06/15/20 12:15 Nicotine (Nicoderm Cq 14mg Patch) 1 patch DAILY TD 06/15/20 19:20 Glimepiride (Amaryl) 2 mg BIDWMEALS PO 06/17/20 17:00 06/20/20 17:15 Fluvoxamine Maleate (Luvox) 25 mg DAILY08 PO 06/19/20 08:00 06/21/20 23:50 06/20/20 08:02 Fluvoxamine Maleate (Luvox) 50 mg DAILY08 PO 06/22/20 08:00 Amoxicillin (Amoxil) 500 mg [id number] PO 06/18/20 15:15 06/28/20 15:14 06/20/20 21:17 Lactobacillus Rhamnosus (Culturelle) 1 cap BID PO 06/18/20 21:00 06/20/20 21:17 I have reviewed the current psychotropics carefully including drug interactions. Risk benefit ratio favors no change other than as noted in my dictated progress note. Diagnosis: Problems: (1) Schizoaffective disorder, bipolar type (2) Impulse control disorder, unspecified (3) Anxiety disorder, unspecified (4) Bipolar disorder, curr episode mixed, severe, with psychotic features CAREN MALIK MD Jun 20, 2020 22:01
[2020-06-21 06:08] VITALS: BP 102/59
[2020-06-21] MEDS: LACTOBACILLUS RHAMNOSUS GG 1 CAPSULE. PO SCH ×2 (08:02→21:25)
[2020-06-21] MEDS: metFORMIN 500 MG TABLET PO SCH ×2 (08:02→17:29)
[2020-06-21] MEDS: GLIMEPIRIDE 2 MG TABLET PO SCH ×2 (08:03→17:29)
[2020-06-21] MEDS: QUEtiapine 25 MG TABLET. PO SCH ×2 (08:03→21:24)
[2020-06-21] MEDS: AMOXICILLIN 250 MG CAPSULE PO SCH ×3 (08:03→21:25)
[2020-06-21] MEDS: CHOLECALCIFEROL (VITAMIN D3) 1,000 UNIT TABLET PO SCH (08:04)
[2020-06-21] MEDS: VALPROIC ACID 250 MG CAPSULE. PO SCH ×2 (08:04→21:24)
[2020-06-21] MEDS: KETOCONAZOLE 2% SHAMPOO 120ML BOTTLE. TP SCH (08:05)
[2020-06-21] MEDS: NICOTINE 14MG PATCH. TD SCH (08:05)
[2020-06-21] MEDS: NYSTATIN TOPICAL POWDER 15GM BOTTLE. TP SCH ×2 (08:05→21:26)
[2020-06-21 18:09] VITALS: BP 101/60
[2020-06-21] MEDS: clonazePAM 0.5 MG TABLET PO SCH (21:24)
--- NOTE | 2020-06-21 22:03 | PDOC ---
Exam Note: Kwasi Note: Please also refer to the separate dictated note~for this date of service dictated separately.~Patient seen individually. Discussed the patient with Nursing staff reviewed the chart.~Reviewed interim history and current functioning. Reviewed vital signs,~Labs/ Radiology~and current medications noted below. Continue current treatment with the changes noted in the dictated addendum note Assessment: Vital Signs/I&O: Vital Signs Date Time Temp Pulse Resp B/P (MAP) Pulse Ox O2 Delivery O2 Flow Rate FiO2 06/21/20 18:09 98.0 65 16 101/60 (74) 98 06/20/20 05:52 Room Air I & O 06/20/20 06/20/20 06/21/20 15:00 23:00 07:00 Intake Total 900 ml 220 ml 120 ml Balance 900 ml 220 ml 120 ml Labs: Laboratory Tests Test 06/21/20 08:07 Glucose (Fingerstick) 195 mg/dL (70-99) H Current Medications: Meds: Laboratory Tests Test 06/21/20 08:07 Glucose (Fingerstick) 195 mg/dL Current Medications Medications (Trade) Dose Ordered Sig/Samm Route PRN Reason Start Time Stop Time Status Last Admin Dose Admin Acetaminophen (Tylenol) 650 mg PRN Q4HRS PRN PO pain or fever 06/15/20 11:30 Bisacodyl (Dulcolax Supp) 10 mg PRN DAILY PRN RC CONSTIPATION 06/15/20 11:30 Clonazepam (KlonoPIN) 0.5 mg HS PO 06/15/20 21:00 06/21/20 21:24 Al Hydroxide/Mg Hydroxide (Mylanta Plus Xs) 30 ml Q6HRS PRN PO HEARTBURN/INDIGESTION 06/15/20 11:30 06/15/20 14:34 DC Nystatin (Nystop) 1 shay BID TP 06/15/20 21:00 06/21/20 21:26 Quetiapine Fumarate (SEROquel) 25 mg BID PO 06/15/20 21:00 06/21/20 21:24 Valproic Acid (Depakene) 500 mg DAILY PO 06/16/20 09:00 06/21/20 08:04 Valproic Acid (Depakene) 750 mg HS PO 06/15/20 21:00 06/21/20 21:24 Vitamin D (Vitamin D3) 500 unit DAILY PO 06/16/20 09:00 06/21/20 08:04 Citalopram Hydrobromide (CeleXA) 40 mg DAILY PO 06/16/20 09:00 06/18/20 11:56 DC 06/18/20 08:41 Magnesium Hydroxide (Milk Of Magnesia) 2,400 mg PRN DAILY PRN PO CONSTIPATION 06/15/20 12:15 06/15/20 14:34 DC Non-Formulary Medication (Menthol (Biofreeze)) 1 shay Q6HRS TP 06/15/20 12:00 06/15/20 12:07 DC Metformin HCl (Glucophage) 1,000 mg BIDWMEALS PO 06/15/20 17:00 06/21/20 17:29 Multi-Ingredient Ointment (Analgesic [place]) 1 shay PRN Q6HRS PRN TP MUSCLE SPASTICITY 06/15/20 12:15 06/15/20 14:34 DC Ketoconazole (Nizoral 2% Shampoo) 1 shay MoTh TP 06/18/20 09:00 06/21/20 08:05 Acetaminophen (Tylenol) 650 mg PRN Q6HRS PRN PO MILD PAIN / TEMP > 100.3'F 06/15/20 12:15 UNV Multi-Ingredient Ointment (Analgesic [place]) 1 shay PRN QID PRN TP MUSCLE PAIN 06/15/20 12:15 Al Hydroxide/Mg Hydroxide (Mylanta Plus Xs) 15 ml PRN AFTMEALHC PRN PO DYSPEPSIA 06/15/20 12:15 Magnesium Hydroxide (Milk Of Magnesia) 2,400 mg PRN QHS PRN PO CONSTIPATION 06/15/20 12:15 Nicotine (Nicoderm Cq 14mg Patch) 1 patch DAILY TD 06/15/20 19:20 Glimepiride (Amaryl) 2 mg BIDWMEALS PO 06/17/20 17:00 06/21/20 17:29 Fluvoxamine Maleate (Luvox) 25 mg DAILY08 PO 06/19/20 08:00 06/21/20 23:50 06/21/20 08:04 Fluvoxamine Maleate (Luvox) 50 mg DAILY08 PO 06/22/20 08:00 Amoxicillin (Amoxil) 500 mg [id number] PO 06/18/20 15:15 06/28/20 15:14 06/21/20 21:25 Lactobacillus Rhamnosus (Culturelle) 1 cap BID PO 06/18/20 21:00 06/21/20 21:25 I have reviewed the current psychotropics carefully including drug interactions. Risk benefit ratio favors no change other than as noted in my dictated progress note. Diagnosis: Problems: (1) Schizoaffective disorder, bipolar type (2) Impulse control disorder, unspecified (3) Anxiety disorder, unspecified (4) Bipolar disorder, curr episode mixed, severe, with psychotic features CAREN MALIK MD Jun 21, 2020 22:03
[2020-06-22 06:03] VITALS: BP 106/73
[2020-06-22] MEDS: CHOLECALCIFEROL (VITAMIN D3) 1,000 UNIT TABLET PO SCH (08:47)
[2020-06-22] MEDS: QUEtiapine 25 MG TABLET. PO SCH ×2 (08:47→20:30)
[2020-06-22] MEDS: LACTOBACILLUS RHAMNOSUS GG 1 CAPSULE. PO SCH ×2 (08:47→20:30)
[2020-06-22] MEDS: metFORMIN 500 MG TABLET PO SCH ×2 (08:47→17:33)
[2020-06-22] MEDS: VALPROIC ACID 250 MG CAPSULE. PO SCH ×2 (08:47→20:31)
[2020-06-22] MEDS: GLIMEPIRIDE 2 MG TABLET PO SCH ×2 (08:47→17:33)
[2020-06-22] MEDS: AMOXICILLIN 250 MG CAPSULE PO SCH ×3 (08:48→20:30)
[2020-06-22] MEDS: NICOTINE 14MG PATCH. TD SCH (09:00)
[2020-06-22] MEDS: NYSTATIN TOPICAL POWDER 15GM BOTTLE. TP SCH ×2 (09:30→20:35)
[2020-06-22 15:59] VITALS: BP 121/72
[2020-06-22] MEDS: clonazePAM 0.5 MG TABLET PO SCH (20:30)
--- NOTE | 2020-06-22 22:19 | PDOC ---
Exam Note: Kwasi Note: Please also refer to the separate dictated note~for this date of service dictated separately.~Patient seen individually. Discussed the patient with Nursing staff reviewed the chart.~Reviewed interim history and current functioning. Reviewed vital signs,~Labs/ Radiology~and current medications noted below. Continue current treatment with the changes noted in the dictated addendum note Assessment: Vital Signs/I&O: Vital Signs Date Time Temp Pulse Resp B/P (MAP) Pulse Ox O2 Delivery O2 Flow Rate FiO2 06/22/20 15:59 98.7 63 19 121/72 (88) 95 Room Air I & O 06/21/20 06/21/20 06/22/20 15:00 23:00 07:00 Intake Total 360 ml 720 ml Balance 360 ml 720 ml Labs: Laboratory Tests Test 06/22/20 08:03 Glucose (Fingerstick) 207 mg/dL (70-99) H Current Medications: Meds: Laboratory Tests Test 06/22/20 08:03 Glucose (Fingerstick) 207 mg/dL Current Medications Medications (Trade) Dose Ordered Sig/Samm Route PRN Reason Start Time Stop Time Status Last Admin Dose Admin Acetaminophen (Tylenol) 650 mg PRN Q4HRS PRN PO pain or fever 06/15/20 11:30 Bisacodyl (Dulcolax Supp) 10 mg PRN DAILY PRN RC CONSTIPATION 06/15/20 11:30 Clonazepam (KlonoPIN) 0.5 mg HS PO 06/15/20 21:00 06/22/20 20:30 Al Hydroxide/Mg Hydroxide (Mylanta Plus Xs) 30 ml Q6HRS PRN PO HEARTBURN/INDIGESTION 06/15/20 11:30 06/15/20 14:34 DC Nystatin (Nystop) 1 shay BID TP 06/15/20 21:00 06/22/20 20:35 Quetiapine Fumarate (SEROquel) 25 mg BID PO 06/15/20 21:00 06/22/20 20:30 Valproic Acid (Depakene) 500 mg DAILY PO 06/16/20 09:00 06/22/20 08:47 Valproic Acid (Depakene) 750 mg HS PO 06/15/20 21:00 06/22/20 20:31 Vitamin D (Vitamin D3) 500 unit DAILY PO 06/16/20 09:00 06/22/20 08:47 Citalopram Hydrobromide (CeleXA) 40 mg DAILY PO 06/16/20 09:00 06/18/20 11:56 DC 06/18/20 08:41 Magnesium Hydroxide (Milk Of Magnesia) 2,400 mg PRN DAILY PRN PO CONSTIPATION 06/15/20 12:15 06/15/20 14:34 DC Non-Formulary Medication (Menthol (Biofreeze)) 1 shay Q6HRS TP 06/15/20 12:00 06/15/20 12:07 DC Metformin HCl (Glucophage) 1,000 mg BIDWMEALS PO 06/15/20 17:00 06/22/20 17:33 Multi-Ingredient Ointment (Analgesic [place]) 1 shay PRN Q6HRS PRN TP MUSCLE SPASTICITY 06/15/20 12:15 06/15/20 14:34 DC Ketoconazole (Nizoral 2% Shampoo) 1 shay MoTh TP 06/18/20 09:00 06/21/20 08:05 Acetaminophen (Tylenol) 650 mg PRN Q6HRS PRN PO MILD PAIN / TEMP > 100.3'F 06/15/20 12:15 UNV Multi-Ingredient Ointment (Analgesic [place]) 1 shay PRN QID PRN TP MUSCLE PAIN 06/15/20 12:15 Al Hydroxide/Mg Hydroxide (Mylanta Plus Xs) 15 ml PRN AFTMEALHC PRN PO DYSPEPSIA 06/15/20 12:15 Magnesium Hydroxide (Milk Of Magnesia) 2,400 mg PRN QHS PRN PO CONSTIPATION 06/15/20 12:15 Nicotine (Nicoderm Cq 14mg Patch) 1 patch DAILY TD 06/15/20 19:20 Glimepiride (Amaryl) 2 mg BIDWMEALS PO 06/17/20 17:00 06/22/20 17:33 Fluvoxamine Maleate (Luvox) 25 mg DAILY08 PO 06/19/20 08:00 06/21/20 23:50 DC 06/21/20 08:04 Fluvoxamine Maleate (Luvox) 50 mg DAILY08 PO 06/22/20 08:00 06/22/20 18:39 DC 06/22/20 08:47 Amoxicillin (Amoxil) 500 mg [id number] PO 06/18/20 15:15 06/28/20 15:14 06/22/20 20:30 Lactobacillus Rhamnosus (Culturelle) 1 cap BID PO 06/18/20 21:00 06/22/20 20:30 Fluvoxamine Maleate (Luvox) 75 mg DAILY PO 06/25/20 09:00 Fluvoxamine Maleate (Luvox) 50 mg DAILY PO 06/23/20 09:00 06/24/20 09:01 Current Medications Medications (Trade) Dose Ordered Sig/Samm Route PRN Reason Start Time Stop Time Status Last Admin Dose Admin Fluvoxamine Maleate (Luvox) 50 mg DAILY08 PO 06/22/20 08:00 06/22/20 18:39 DC 06/22/20 08:47 I have reviewed the current psychotropics carefully including drug interactions. Risk benefit ratio favors no change other than as noted in my dictated progress note. Diagnosis: Problems: (1) Schizoaffective disorder, bipolar type (2) Impulse control disorder, unspecified (3) Anxiety disorder, unspecified (4) Bipolar disorder, curr episode mixed, severe, with psychotic features CAREN MALIK MD Jun 22, 2020 22:19
[2020-06-23 06:37] VITALS: BP 93/56
--- NOTE | 2020-06-23 07:42 | PDOC ---
Exam Note: Kwasi Note: This note is a late entry for 06/20/2020 covers elements not covered in my initial note. Subjective: The patient was seen individually in the evening of 06/20/2020 with Keshia GAUTAM, discussed and reviewed the chart. He slept 6-1/2 hours previous night. The patient has been doing better, less agitated with improved mood lability, less paranoid. Review of Systems: Ambulation impaired in wheelchair. No CV, , pulmonary, eye, ENT system symptoms on review. Mental Status Exam: The patient is oriented to himself. Insight and judgment, recent and remote memory, attention and concentration, fund of knowledge is poor consistent with his diagnoses. No suicidal or homicidal ideation. Laboratory Data: Reviewed. Impression: Schizoaffective disorder, bipolar type mixed with psychotic features. Anxiety disorder unspecified. Impulse control disorder unspecified. Plan: Continue current psychotropics. Valproic acid level is 91 therapeutic. TSH is elevated. We will defer to Dr. Ross. Assessment: Vital Signs/I&O: Vital Signs Date Time Temp Pulse Resp B/P (MAP) Pulse Ox O2 Delivery O2 Flow Rate FiO2 06/23/20 06:37 97.0 49 18 93/56 (68) 93 06/22/20 15:59 Room Air I & O 06/22/20 06/22/20 06/23/20 15:00 23:00 07:00 Intake Total 480 ml 480 ml Balance 480 ml 480 ml Labs: Laboratory Tests Test 06/22/20 08:03 Glucose (Fingerstick) 207 mg/dL (70-99) H Current Medications: Meds: Laboratory Tests Test 06/22/20 08:03 Glucose (Fingerstick) 207 mg/dL Current Medications Medications (Trade) Dose Ordered Sig/Samm Route PRN Reason Start Time Stop Time Status Last Admin Dose Admin Acetaminophen (Tylenol) 650 mg PRN Q4HRS PRN PO pain or fever 06/15/20 11:30 Bisacodyl (Dulcolax Supp) 10 mg PRN DAILY PRN RC CONSTIPATION 06/15/20 11:30 Clonazepam (KlonoPIN) 0.5 mg HS PO 06/15/20 21:00 06/22/20 20:30 Al Hydroxide/Mg Hydroxide (Mylanta Plus Xs) 30 ml Q6HRS PRN PO HEARTBURN/INDIGESTION 06/15/20 11:30 06/15/20 14:34 DC Nystatin (Nystop) 1 shay BID TP 06/15/20 21:00 06/22/20 20:35 Quetiapine Fumarate (SEROquel) 25 mg BID PO 06/15/20 21:00 06/22/20 20:30 Valproic Acid (Depakene) 500 mg DAILY PO 06/16/20 09:00 06/22/20 08:47 Valproic Acid (Depakene) 750 mg HS PO 06/15/20 21:00 06/22/20 20:31 Vitamin D (Vitamin D3) 500 unit DAILY PO 06/16/20 09:00 06/22/20 08:47 Citalopram Hydrobromide (CeleXA) 40 mg DAILY PO 06/16/20 09:00 06/18/20 11:56 DC 06/18/20 08:41 Magnesium Hydroxide (Milk Of Magnesia) 2,400 mg PRN DAILY PRN PO CONSTIPATION 06/15/20 12:15 06/15/20 14:34 DC Non-Formulary Medication (Menthol (Biofreeze)) 1 shay Q6HRS TP 06/15/20 12:00 06/15/20 12:07 DC Metformin HCl (Glucophage) 1,000 mg BIDWMEALS PO 06/15/20 17:00 06/22/20 17:33 Multi-Ingredient Ointment (Analgesic [place]) 1 shay PRN Q6HRS PRN TP MUSCLE SPASTICITY 06/15/20 12:15 06/15/20 14:34 DC Ketoconazole (Nizoral 2% Shampoo) 1 shay MoTh TP 06/18/20 09:00 06/21/20 08:05 Acetaminophen (Tylenol) 650 mg PRN Q6HRS PRN PO MILD PAIN / TEMP > 100.3'F 06/15/20 12:15 UNV Multi-Ingredient Ointment (Analgesic [place]) 1 shay PRN QID PRN TP MUSCLE PAIN 06/15/20 12:15 Al Hydroxide/Mg Hydroxide (Mylanta Plus Xs) 15 ml PRN AFTMEALHC PRN PO DYSPEPSIA 06/15/20 12:15 Magnesium Hydroxide (Milk Of Magnesia) 2,400 mg PRN QHS PRN PO CONSTIPATION 06/15/20 12:15 Nicotine (Nicoderm Cq 14mg Patch) 1 patch DAILY TD 06/15/20 19:20 Glimepiride (Amaryl) 2 mg BIDWMEALS PO 06/17/20 17:00 06/22/20 17:33 Fluvoxamine Maleate (Luvox) 25 mg DAILY08 PO 06/19/20 08:00 06/21/20 23:50 DC 06/21/20 08:04 Fluvoxamine Maleate (Luvox) 50 mg DAILY08 PO 06/22/20 08:00 06/22/20 18:39 DC 06/22/20 08:47 Amoxicillin (Amoxil) 500 mg [id number] PO 06/18/20 15:15 06/28/20 15:14 06/22/20 20:30 Lactobacillus Rhamnosus (Culturelle) 1 cap BID PO 06/18/20 21:00 06/22/20 20:30 Fluvoxamine Maleate (Luvox) 75 mg DAILY PO 06/25/20 09:00 Fluvoxamine Maleate (Luvox) 50 mg DAILY PO 06/23/20 09:00 06/24/20 09:01 Current Medications Medications (Trade) Dose Ordered Sig/Samm Route PRN Reason Start Time Stop Time Status Last Admin Dose Admin Fluvoxamine Maleate (Luvox) 50 mg DAILY08 PO 06/22/20 08:00 06/22/20 18:39 DC 06/22/20 08:47 I have reviewed the current psychotropics carefully including drug interactions. Risk benefit ratio favors no change other than as noted in my dictated progress note. Diagnosis: Problems: (1) Schizoaffective disorder, bipolar type (2) Impulse control disorder, unspecified (3) Anxiety disorder, unspecified (4) Bipolar disorder, curr episode mixed, severe, with psychotic features CAREN MALIK MD June 23, 2020 07:41
[2020-06-23] MEDS: CHOLECALCIFEROL (VITAMIN D3) 1,000 UNIT TABLET PO SCH (08:20)
[2020-06-23] MEDS: LACTOBACILLUS RHAMNOSUS GG 1 CAPSULE. PO SCH ×2 (08:20→21:05)
[2020-06-23] MEDS: metFORMIN 500 MG TABLET PO SCH ×2 (08:20→17:25)
[2020-06-23] MEDS: QUEtiapine 25 MG TABLET. PO SCH ×2 (08:20→21:05)
[2020-06-23] MEDS: VALPROIC ACID 250 MG CAPSULE. PO SCH ×2 (08:20→21:05)
[2020-06-23] MEDS: NICOTINE 14MG PATCH. TD SCH (08:21)
[2020-06-23] MEDS: GLIMEPIRIDE 2 MG TABLET PO SCH ×2 (08:21→17:25)
[2020-06-23] MEDS: AMOXICILLIN 250 MG CAPSULE PO SCH ×3 (08:21→21:05)
--- NOTE | 2020-06-23 08:23 | PDOC ---
Exam Note: Kwasi Note: This note is a late entry for 06/21/2020 covers elements not covered in my initial note. Subjective: The patient was seen individually in the evening of 06/21/2020 with Lynsey GAUTAM, discussed and reviewed the chart. He slept 6-1/2 hours previous night. The patient has been loud at times, has episodes of incontinence. One of the other demented female patients was trying to calm him down. He has been placed in a toileting schedule given his obsessiveness and compulsive behaviors regarding this. I met with him in the dayroom at length. Review of Systems: Ambulation impaired in wheelchair. No CV, , pulmonary, eye, ENT system symptoms on review. Mental Status Exam: The patient is oriented to himself. Insight and judgment, recent and remote memory, attention and concentration, fund of knowledge is poor consistent with his diagnoses. No suicidal or homicidal ideation. Laboratory Data: Reviewed. Impression: Schizoaffective disorder, bipolar type mixed with psychotic features. Anxiety disorder unspecified. Impulse control disorder unspecified. Plan: Continue current psychotropics. Luvox has been started. We are increasing it for his OCD symptoms. Maintain Amoxil 500 mg t.i.d. for his UTI. Adjust further as clinically indicated. Assessment: Vital Signs/I&O: Vital Signs Date Time Temp Pulse Resp B/P (MAP) Pulse Ox O2 Delivery O2 Flow Rate FiO2 06/23/20 06:37 97.0 49 18 93/56 (68) 93 06/22/20 15:59 Room Air I & O 06/22/20 06/22/20 06/23/20 15:00 23:00 07:00 Intake Total 480 ml 480 ml Balance 480 ml 480 ml Labs: Laboratory Tests Test 06/23/20 07:40 Glucose (Fingerstick) 157 mg/dL (70-99) H Current Medications: Meds: Laboratory Tests Test 06/23/20 07:40 Glucose (Fingerstick) 157 mg/dL Current Medications Medications (Trade) Dose Ordered Sig/Samm Route PRN Reason Start Time Stop Time Status Last Admin Dose Admin Acetaminophen (Tylenol) 650 mg PRN Q4HRS PRN PO pain or fever 06/15/20 11:30 Bisacodyl (Dulcolax Supp) 10 mg PRN DAILY PRN RC CONSTIPATION 06/15/20 11:30 Clonazepam (KlonoPIN) 0.5 mg HS PO 06/15/20 21:00 06/22/20 20:30 Al Hydroxide/Mg Hydroxide (Mylanta Plus Xs) 30 ml Q6HRS PRN PO HEARTBURN/INDIGESTION 06/15/20 11:30 06/15/20 14:34 DC Nystatin (Nystop) 1 shay BID TP 06/15/20 21:00 06/22/20 20:35 Quetiapine Fumarate (SEROquel) 25 mg BID PO 06/15/20 21:00 06/23/20 08:20 Valproic Acid (Depakene) 500 mg DAILY PO 06/16/20 09:00 06/23/20 08:20 Valproic Acid (Depakene) 750 mg HS PO 06/15/20 21:00 06/22/20 20:31 Vitamin D (Vitamin D3) 500 unit DAILY PO 06/16/20 09:00 06/23/20 08:20 Citalopram Hydrobromide (CeleXA) 40 mg DAILY PO 06/16/20 09:00 06/18/20 11:56 DC 06/18/20 08:41 Magnesium Hydroxide (Milk Of Magnesia) 2,400 mg PRN DAILY PRN PO CONSTIPATION 06/15/20 12:15 06/15/20 14:34 DC Non-Formulary Medication (Menthol (Biofreeze)) 1 shay Q6HRS TP 06/15/20 12:00 06/15/20 12:07 DC Metformin HCl (Glucophage) 1,000 mg BIDWMEALS PO 06/15/20 17:00 06/23/20 08:20 Multi-Ingredient Ointment (Analgesic [place]) 1 shay PRN Q6HRS PRN TP MUSCLE SPASTICITY 06/15/20 12:15 06/15/20 14:34 DC Ketoconazole (Nizoral 2% Shampoo) 1 shay MoTh TP 06/18/20 09:00 06/21/20 08:05 Acetaminophen (Tylenol) 650 mg PRN Q6HRS PRN PO MILD PAIN / TEMP > 100.3'F 06/15/20 12:15 UNV Multi-Ingredient Ointment (Analgesic [place]) 1 shay PRN QID PRN TP MUSCLE PAIN 06/15/20 12:15 Al Hydroxide/Mg Hydroxide (Mylanta Plus Xs) 15 ml PRN AFTMEALHC PRN PO DYSPEPSIA 06/15/20 12:15 Magnesium Hydroxide (Milk Of Magnesia) 2,400 mg PRN QHS PRN PO CONSTIPATION 06/15/20 12:15 Nicotine (Nicoderm Cq 14mg Patch) 1 patch DAILY TD 06/15/20 19:20 Glimepiride (Amaryl) 2 mg BIDWMEALS PO 06/17/20 17:00 06/23/20 08:21 Fluvoxamine Maleate (Luvox) 25 mg DAILY08 PO 06/19/20 08:00 06/21/20 23:50 DC 06/21/20 08:04 Fluvoxamine Maleate (Luvox) 50 mg DAILY08 PO 06/22/20 08:00 06/22/20 18:39 DC 06/22/20 08:47 Amoxicillin (Amoxil) 500 mg [id number] PO 06/18/20 15:15 06/28/20 15:14 06/23/20 08:21 Lactobacillus Rhamnosus (Culturelle) 1 cap BID PO 06/18/20 21:00 06/23/20 08:20 Fluvoxamine Maleate (Luvox) 75 mg DAILY PO 06/25/20 09:00 Fluvoxamine Maleate (Luvox) 50 mg DAILY PO 06/23/20 09:00 06/24/20 09:01 06/23/20 08:21 Current Medications Medications (Trade) Dose Ordered Sig/Samm Route PRN Reason Start Time Stop Time Status Last Admin Dose Admin Fluvoxamine Maleate (Luvox) 50 mg DAILY PO 06/23/20 09:00 06/24/20 09:01 06/23/20 08:21 I have reviewed the current psychotropics carefully including drug interactions. Risk benefit ratio favors no change other than as noted in my dictated progress note. Diagnosis: Problems: (1) Schizoaffective disorder, bipolar type (2) Impulse control disorder, unspecified (3) Anxiety disorder, unspecified (4) Bipolar disorder, curr episode mixed, severe, with psychotic features CAREN MALIK MD June 23, 2020 08:23
[2020-06-23] MEDS: NYSTATIN TOPICAL POWDER 15GM BOTTLE. TP SCH ×2 (08:25→21:00)
[2020-06-23 15:51] VITALS: BP 116/65
[2020-06-23] MEDS: clonazePAM 0.5 MG TABLET PO SCH (21:05)
--- NOTE | 2020-06-23 21:56 | PDOC ---
Exam Note: Kwasi Note: Please also refer to the separate dictated note~for this date of service dictated separately.~Patient seen individually. Discussed the patient with Nursing staff reviewed the chart.~Reviewed interim history and current functioning. Reviewed vital signs,~Labs/ Radiology~and current medications noted below. Continue current treatment with the changes noted in the dictated addendum note Assessment: Vital Signs/I&O: Vital Signs Date Time Temp Pulse Resp B/P (MAP) Pulse Ox O2 Delivery O2 Flow Rate FiO2 06/23/20 15:51 97.6 56 16 116/65 (82) 96 Room Air I & O 06/22/20 06/22/20 06/23/20 15:00 23:00 07:00 Intake Total 480 ml 480 ml Balance 480 ml 480 ml Labs: Laboratory Tests Test 06/23/20 07:40 Glucose (Fingerstick) 157 mg/dL (70-99) H Current Medications: Meds: Laboratory Tests Test 06/23/20 07:40 Glucose (Fingerstick) 157 mg/dL Current Medications Medications (Trade) Dose Ordered Sig/Samm Route PRN Reason Start Time Stop Time Status Last Admin Dose Admin Acetaminophen (Tylenol) 650 mg PRN Q4HRS PRN PO pain or fever 06/15/20 11:30 Bisacodyl (Dulcolax Supp) 10 mg PRN DAILY PRN RC 2ND CHOICE CONSTIPATION 06/15/20 11:30 Clonazepam (KlonoPIN) 0.5 mg HS PO 06/15/20 21:00 06/23/20 21:05 Al Hydroxide/Mg Hydroxide (Mylanta Plus Xs) 30 ml Q6HRS PRN PO HEARTBURN/INDIGESTION 06/15/20 11:30 06/15/20 14:34 DC Nystatin (Nystop) 1 shay BID TP 06/15/20 21:00 06/23/20 21:00 Quetiapine Fumarate (SEROquel) 25 mg BID PO 06/15/20 21:00 06/23/20 21:05 Valproic Acid (Depakene) 500 mg DAILY PO 06/16/20 09:00 06/23/20 08:20 Valproic Acid (Depakene) 750 mg HS PO 06/15/20 21:00 06/23/20 21:05 Vitamin D (Vitamin D3) 500 unit DAILY PO 06/16/20 09:00 06/23/20 08:20 Citalopram Hydrobromide (CeleXA) 40 mg DAILY PO 06/16/20 09:00 06/18/20 11:56 DC 06/18/20 08:41 Magnesium Hydroxide (Milk Of Magnesia) 2,400 mg PRN DAILY PRN PO CONSTIPATION 06/15/20 12:15 06/15/20 14:34 DC Non-Formulary Medication (Menthol (Biofreeze)) 1 shay Q6HRS TP 06/15/20 12:00 06/15/20 12:07 DC Metformin HCl (Glucophage) 1,000 mg BIDWMEALS PO 06/15/20 17:00 06/23/20 17:25 Multi-Ingredient Ointment (Analgesic [place]) 1 shay PRN Q6HRS PRN TP MUSCLE SPASTICITY 06/15/20 12:15 06/15/20 14:34 DC Ketoconazole (Nizoral 2% Shampoo) 1 shay MoTh TP 06/18/20 09:00 06/21/20 08:05 Acetaminophen (Tylenol) 650 mg PRN Q6HRS PRN PO MILD PAIN / TEMP > 100.3'F 06/15/20 12:15 UNV Multi-Ingredient Ointment (Analgesic [place]) 1 shay PRN QID PRN TP MUSCLE PAIN 06/15/20 12:15 Al Hydroxide/Mg Hydroxide (Mylanta Plus Xs) 15 ml PRN AFTMEALHC PRN PO DYSPEPSIA 06/15/20 12:15 Magnesium Hydroxide (Milk Of Magnesia) 2,400 mg PRN QHS PRN PO 1ST CHOICE CONSTIPATION 06/15/20 12:15 Nicotine (Nicoderm Cq 14mg Patch) 1 patch DAILY TD 06/15/20 19:20 Glimepiride (Amaryl) 2 mg BIDWMEALS PO 06/17/20 17:00 06/23/20 17:25 Fluvoxamine Maleate (Luvox) 25 mg DAILY08 PO 06/19/20 08:00 06/21/20 23:50 DC 06/21/20 08:04 Fluvoxamine Maleate (Luvox) 50 mg DAILY08 PO 06/22/20 08:00 06/22/20 18:39 DC 06/22/20 08:47 Amoxicillin (Amoxil) 500 mg [id number] PO 06/18/20 15:15 06/28/20 15:14 06/23/20 21:05 Lactobacillus Rhamnosus (Culturelle) 1 cap BID PO 06/18/20 21:00 06/23/20 21:05 Fluvoxamine Maleate (Luvox) 75 mg DAILY PO 06/25/20 09:00 Fluvoxamine Maleate (Luvox) 50 mg DAILY PO 06/23/20 09:00 06/24/20 09:01 06/23/20 08:21 Levothyroxine Sodium (Synthroid) 50 mcg DAILY06 PO 06/24/20 06:00 Olanzapine (ZyPREXA) 5 mg PRN Q2HR PRN PO PSYCHOSIS 06/23/20 16:00 Current Medications Medications (Trade) Dose Ordered Sig/Samm Route PRN Reason Start Time Stop Time Status Last Admin Dose Admin Fluvoxamine Maleate (Luvox) 50 mg DAILY PO 06/23/20 09:00 06/24/20 09:01 06/23/20 08:21 I have reviewed the current psychotropics carefully including drug interactions. Risk benefit ratio favors no change other than as noted in my dictated progress note. Diagnosis: Problems: (1) Schizoaffective disorder, bipolar type (2) Impulse control disorder, unspecified (3) Anxiety disorder, unspecified (4) Bipolar disorder, curr episode mixed, severe, with psychotic features ACREN MALIK MD June 23, 2020 21:56
[2020-06-24 06:26] VITALS: BP 114/75
[2020-06-24] MEDS: metFORMIN 500 MG TABLET PO SCH ×2 (06:47→16:27)
[2020-06-24] MEDS: LEVOTHYROXINE 50 MCG TABLET PO SCH (06:47)
[2020-06-24] MEDS: LACTOBACILLUS RHAMNOSUS GG 1 CAPSULE. PO SCH ×2 (06:47→20:35)
[2020-06-24] MEDS: QUEtiapine 25 MG TABLET. PO SCH ×2 (06:47→18:19)
[2020-06-24] MEDS: VALPROIC ACID 250 MG CAPSULE. PO SCH ×2 (06:47→20:35)
[2020-06-24] MEDS: GLIMEPIRIDE 2 MG TABLET PO SCH ×2 (06:47→16:27)
[2020-06-24] MEDS: AMOXICILLIN 250 MG CAPSULE PO SCH ×3 (06:48→20:35)
[2020-06-24] MEDS: CHOLECALCIFEROL (VITAMIN D3) 1,000 UNIT TABLET PO SCH (06:48)
[2020-06-24] MEDS: NICOTINE 14MG PATCH. TD SCH (06:48)
[2020-06-24] MEDS: NYSTATIN TOPICAL POWDER 15GM BOTTLE. TP SCH ×2 (06:48→20:35)
[2020-06-24 10:05] LABS: BASO % 0 % (0-3); EOS % 1 % (0-3); HEMATOCRIT 44.3 % (39.0-53.0); HEMOGLOBIN 14.8 g/dL (13.0-17.5); LYMPH # 2.3 x10^3/uL (1.0-4.8); LYMPH % 32 % (24-48); MEAN CORPUSCULAR HEMOGLOBIN 35 pg (25-35); MEAN CORPUSCULAR HGB CONC 33 g/dL (31-37); MEAN CORPUSCULAR VOLUME 106 fL (79-100); MONO # 1.3 x10^3/uL (0.0-1.1); MONO % 18 % (0-9); NEUT # 3.6 x10^3uL (1.8-7.7); NEUT % 49 % (31-73); PLATELET COUNT 171 x10^3/uL (140-400); RED BLOOD COUNT 4.19 x10^6/uL (4.30-5.70); RED CELL DISTRIBUTION WIDTH 14.4 % (11.5-14.5); WHITE BLOOD COUNT 7.3 x10^3/uL (4.0-11.0)
[2020-06-24 10:37] LABS: ALBUMIN 2.5 g/dL (3.4-5.0); ALBUMIN/GLOBULIN RATIO 0.6 (1.0-1.7); CALCIUM 9.1 mg/dL (8.5-10.1); CREATININE 0.8 mg/dL (0.7-1.3); GFR 99.3; POTASSIUM 4.3 mmol/L (3.5-5.1); TOTAL BILIRUBIN 0.2 mg/dL (0.2-1.0)
[2020-06-24] MEDS: OLANZapine 5 MG TABLET PO PRN (12:36)
[2020-06-24 16:18] VITALS: BP 95/63
[2020-06-24] MEDS: clonazePAM 0.5 MG TABLET PO SCH (20:35)
--- NOTE | 2020-06-24 22:00 | PDOC ---
Exam Note: Kwasi Note: Please also refer to the separate dictated note~for this date of service dictated separately.~Patient seen individually. Discussed the patient with Nursing staff reviewed the chart.~Reviewed interim history and current functioning. Reviewed vital signs,~Labs/ Radiology~and current medications noted below. Continue current treatment with the changes noted in the dictated addendum note Assessment: Vital Signs/I&O: Vital Signs Date Time Temp Pulse Resp B/P (MAP) Pulse Ox O2 Delivery O2 Flow Rate FiO2 06/24/20 16:18 98.1 52 16 95/63 (74) 95 06/24/20 06:26 Room Air I & O 06/23/20 06/23/20 06/24/20 15:00 23:00 07:00 Intake Total 600 ml 480 ml Balance 600 ml 480 ml Labs: Laboratory Tests Test 06/24/20 07:57 06/24/20 09:30 06/24/20 09:35 Glucose (Fingerstick) 173 mg/dL (70-99) H Sodium Level 140 mmol/L (136-145) Potassium Level 4.3 mmol/L (3.5-5.1) Chloride Level 103 mmol/L (98-107) Carbon Dioxide Level 30 mmol/L (21-32) Anion Gap 7 (6-14) Blood Urea Nitrogen 14 mg/dL (8-26) Creatinine 0.8 mg/dL (0.7-1.3) Estimated GFR (Cockcroft-Gault) 99.3 BUN/Creatinine Ratio 18 (6-20) Glucose Level 169 mg/dL (70-99) H Calcium Level 9.1 mg/dL (8.5-10.1) Total Bilirubin 0.2 mg/dL (0.2-1.0) Aspartate Amino Transferase (AST) 8 U/L (15-37) L Alanine Aminotransferase (ALT) 13 U/L (16-63) L Alkaline Phosphatase 56 U/L (46-116) Total Protein 7.0 g/dL (6.4-8.2) Albumin 2.5 g/dL (3.4-5.0) L Albumin/Globulin Ratio 0.6 (1.0-1.7) L White Blood Count 7.3 x10^3/uL (4.0-11.0) Red Blood Count 4.19 x10^6/uL (4.30-5.70) L Hemoglobin 14.8 g/dL (13.0-17.5) Hematocrit 44.3 % (39.0-53.0) Mean Corpuscular Volume 106 fL (79-100) H Mean Corpuscular Hemoglobin 35 pg (25-35) Mean Corpuscular Hemoglobin Concent 33 g/dL (31-37) Red Cell Distribution Width 14.4 % (11.5-14.5) Platelet Count 171 x10^3/uL (140-400) Neutrophils (%) (Auto) 49 % (31-73) Lymphocytes (%) (Auto) 32 % (24-48) Monocytes (%) (Auto) 18 % (0-9) H Eosinophils (%) (Auto) 1 % (0-3) Basophils (%) (Auto) 0 % (0-3) Neutrophils # (Auto) 3.6 x10^3uL (1.8-7.7) Lymphocytes # (Auto) 2.3 x10^3/uL (1.0-4.8) Monocytes # (Auto) 1.3 x10^3/uL (0.0-1.1) H Eosinophils # (Auto) 0.0 x10^3/uL (0.0-0.7) Basophils # (Auto) 0.0 x10^3/uL (0.0-0.2) Current Medications: Meds: Laboratory Tests Test 06/24/20 07:57 06/24/20 09:30 06/24/20 09:35 Glucose (Fingerstick) 173 mg/dL Sodium Level 140 mmol/L Potassium Level 4.3 mmol/L Chloride Level 103 mmol/L Carbon Dioxide Level 30 mmol/L Anion Gap 7 Blood Urea Nitrogen 14 mg/dL Creatinine 0.8 mg/dL Estimated GFR (Cockcroft-Gault) 99.3 BUN/Creatinine Ratio 18 Glucose Level 169 mg/dL Calcium Level 9.1 mg/dL Total Bilirubin 0.2 mg/dL Aspartate Amino Transf (AST/SGOT) 8 U/L Alanine Aminotransferase (ALT/SGPT) 13 U/L Alkaline Phosphatase 56 U/L Total Protein 7.0 g/dL Albumin 2.5 g/dL Albumin/Globulin Ratio 0.6 White Blood Count 7.3 x10^3/uL Red Blood Count 4.19 x10^6/uL Hemoglobin 14.8 g/dL Hematocrit 44.3 % Mean Corpuscular Volume 106 fL Mean Corpuscular Hemoglobin 35 pg Mean Corpuscular Hemoglobin Concent 33 g/dL Red Cell Distribution Width 14.4 % Platelet Count 171 x10^3/uL Neutrophils (%) (Auto) 49 % Lymphocytes (%) (Auto) 32 % Monocytes (%) (Auto) 18 % Eosinophils (%) (Auto) 1 % Basophils (%) (Auto) 0 % Neutrophils # (Auto) 3.6 x10^3uL Lymphocytes # (Auto) 2.3 x10^3/uL Monocytes # (Auto) 1.3 x10^3/uL Eosinophils # (Auto) 0.0 x10^3/uL Basophils # (Auto) 0.0 x10^3/uL Current Medications Medications (Trade) Dose Ordered Sig/Samm Route PRN Reason Start Time Stop Time Status Last Admin Dose Admin Acetaminophen (Tylenol) 650 mg PRN Q4HRS PRN PO pain or fever 06/15/20 11:30 Bisacodyl (Dulcolax Supp) 10 mg PRN DAILY PRN RC 2ND CHOICE CONSTIPATION 06/15/20 11:30 Clonazepam (KlonoPIN) 0.5 mg HS PO 06/15/20 21:00 06/24/20 20:35 Al Hydroxide/Mg Hydroxide (Mylanta Plus Xs) 30 ml Q6HRS PRN PO HEARTBURN/INDIGESTION 06/15/20 11:30 06/15/20 14:34 DC Nystatin (Nystop) 1 shay BID TP 06/15/20 21:00 06/24/20 20:35 Quetiapine Fumarate (SEROquel) 25 mg BID PO 06/15/20 21:00 06/24/20 17:47 DC 06/24/20 06:47 Valproic Acid (Depakene) 500 mg DAILY PO 06/16/20 09:00 06/24/20 06:47 Valproic Acid (Depakene) 750 mg HS PO 06/15/20 21:00 06/24/20 20:35 Vitamin D (Vitamin D3) 500 unit DAILY PO 06/16/20 09:00 06/24/20 06:48 Citalopram Hydrobromide (CeleXA) 40 mg DAILY PO 06/16/20 09:00 06/18/20 11:56 DC 06/18/20 08:41 Magnesium Hydroxide (Milk Of Magnesia) 2,400 mg PRN DAILY PRN PO CONSTIPATION 06/15/20 12:15 06/15/20 14:34 DC Non-Formulary Medication (Menthol (Biofreeze)) 1 shay Q6HRS TP 06/15/20 12:00 06/15/20 12:07 DC Metformin HCl (Glucophage) 1,000 mg BIDWMEALS PO 06/15/20 17:00 06/24/20 16:27 Multi-Ingredient Ointment (Analgesic [place]) 1 shay PRN Q6HRS PRN TP MUSCLE SPASTICITY 06/15/20 12:15 06/15/20 14:34 DC Ketoconazole (Nizoral 2% Shampoo) 1 shay MoTh TP 06/18/20 09:00 06/21/20 08:05 Acetaminophen (Tylenol) 650 mg PRN Q6HRS PRN PO MILD PAIN / TEMP > 100.3'F 06/15/20 12:15 UNV Multi-Ingredient Ointment (Analgesic [place]) 1 shay PRN QID PRN TP MUSCLE PAIN 06/15/20 12:15 Al Hydroxide/Mg Hydroxide (Mylanta Plus Xs) 15 ml PRN AFTMEALHC PRN PO DYSPEPSIA 06/15/20 12:15 Magnesium Hydroxide (Milk Of Magnesia) 2,400 mg PRN QHS PRN PO 1ST CHOICE CONSTIPATION 06/15/20 12:15 Nicotine (Nicoderm Cq 14mg Patch) 1 patch DAILY TD 06/15/20 19:20 Glimepiride (Amaryl) 2 mg BIDWMEALS PO 06/17/20 17:00 06/24/20 16:27 Fluvoxamine Maleate (Luvox) 25 mg DAILY08 PO 06/19/20 08:00 06/21/20 23:50 DC 06/21/20 08:04 Fluvoxamine Maleate (Luvox) 50 mg DAILY08 PO 06/22/20 08:00 06/22/20 18:39 DC 06/22/20 08:47 Amoxicillin (Amoxil) 500 mg [id number] PO 06/18/20 15:15 06/28/20 15:14 06/24/20 20:35 Lactobacillus Rhamnosus (Culturelle) 1 cap BID PO 06/18/20 21:00 06/24/20 20:35 Fluvoxamine Maleate (Luvox) 75 mg DAILY PO 06/25/20 09:00 Fluvoxamine Maleate (Luvox) 50 mg DAILY PO 06/23/20 09:00 06/24/20 09:01 DC 06/24/20 06:47 Levothyroxine Sodium (Synthroid) 50 mcg DAILY06 PO 06/24/20 06:00 06/24/20 06:47 Olanzapine (ZyPREXA) 5 mg PRN Q2HR PRN PO PSYCHOSIS 06/23/20 16:00 06/24/20 12:36 Quetiapine Fumarate (SEROquel) 25 mg 0900,1300,1700 PO 06/24/20 18:00 06/24/20 18:19 Current Medications Medications (Trade) Dose Ordered Sig/Samm Route PRN Reason Start Time Stop Time Status Last Admin Dose Admin Levothyroxine Sodium (Synthroid) 50 mcg DAILY06 PO 06/24/20 06:00 06/24/20 06:47 Quetiapine Fumarate (SEROquel) 25 mg 0900,1300,1700 PO 06/24/20 18:00 06/24/20 18:19 I have reviewed the current psychotropics carefully including drug interactions. Risk benefit ratio favors no change other than as noted in my dictated progress note. Diagnosis: Problems: (1) Schizoaffective disorder, bipolar type (2) Impulse control disorder, unspecified (3) Anxiety disorder, unspecified (4) Bipolar disorder, curr episode mixed, severe, with psychotic features CAREN MALIK MD June 24, 2020 22:00
[2020-06-25 06:08] VITALS: BP 103/68
[2020-06-25] MEDS: LEVOTHYROXINE 50 MCG TABLET PO SCH (06:10)
--- NOTE | 2020-06-25 06:58 | PDOC ---
Exam Note: Kwasi Note: This note is a late entry for 06/22/2020 covers elements not covered in my initial note. Subjective: The patient was seen individually in the evening of 06/22/2020 with Lucy GAUTAM, discussed and reviewed the chart. He slept 5-3/4 hours previous night. The patient has had a rough day according to nursing report. He has been agitated, verbally abusive to staff using profanities including the F word. His TSH is elevated. We will defer to Dr. Ross/Dr. Bennett. I addressed this with him at length individually. He has limited insight and would blame staff for not responding to him when he asked for it. Review of Systems: Ambulation impaired in wheelchair. No CV, , pulmonary, eye, ENT system symptoms on review. Mental Status Exam: The patient is oriented to himself. Insight and judgment, recent and remote memory, attention and concentration, fund of knowledge is poor consistent with his diagnoses. No suicidal or homicidal ideation. Laboratory Data: Reviewed. Impression: Schizoaffective disorder, bipolar type mixed with psychotic features. Anxiety disorder unspecified. Impulse control disorder unspecified. Plan: Continue current psychotropics. The patient is on Luvox 50 mg daily. We will increase to 75 mg daily. Continue Depakote at current dosage, level will be repeated and adjusted to reach therapeutic level. Assessment: Vital Signs/I&O: Vital Signs Date Time Temp Pulse Resp B/P (MAP) Pulse Ox O2 Delivery O2 Flow Rate FiO2 06/25/20 06:08 97.5 48 14 103/68 (80) 94 06/24/20 06:26 Room Air I & O 06/24/20 06/24/20 06/25/20 15:00 23:00 07:00 Intake Total 720 ml 480 ml Balance 720 ml 480 ml Labs: Laboratory Tests Test 06/24/20 07:57 06/24/20 09:30 06/24/20 09:35 Glucose (Fingerstick) 173 mg/dL (70-99) H Sodium Level 140 mmol/L (136-145) Potassium Level 4.3 mmol/L (3.5-5.1) Chloride Level 103 mmol/L (98-107) Carbon Dioxide Level 30 mmol/L (21-32) Anion Gap 7 (6-14) Blood Urea Nitrogen 14 mg/dL (8-26) Creatinine 0.8 mg/dL (0.7-1.3) Estimated GFR (Cockcroft-Gault) 99.3 BUN/Creatinine Ratio 18 (6-20) Glucose Level 169 mg/dL (70-99) H Calcium Level 9.1 mg/dL (8.5-10.1) Total Bilirubin 0.2 mg/dL (0.2-1.0) Aspartate Amino Transferase (AST) 8 U/L (15-37) L Alanine Aminotransferase (ALT) 13 U/L (16-63) L Alkaline Phosphatase 56 U/L (46-116) Total Protein 7.0 g/dL (6.4-8.2) Albumin 2.5 g/dL (3.4-5.0) L Albumin/Globulin Ratio 0.6 (1.0-1.7) L White Blood Count 7.3 x10^3/uL (4.0-11.0) Red Blood Count 4.19 x10^6/uL (4.30-5.70) L Hemoglobin 14.8 g/dL (13.0-17.5) Hematocrit 44.3 % (39.0-53.0) Mean Corpuscular Volume 106 fL (79-100) H Mean Corpuscular Hemoglobin 35 pg (25-35) Mean Corpuscular Hemoglobin Concent 33 g/dL (31-37) Red Cell Distribution Width 14.4 % (11.5-14.5) Platelet Count 171 x10^3/uL (140-400) Neutrophils (%) (Auto) 49 % (31-73) Lymphocytes (%) (Auto) 32 % (24-48) Monocytes (%) (Auto) 18 % (0-9) H Eosinophils (%) (Auto) 1 % (0-3) Basophils (%) (Auto) 0 % (0-3) Neutrophils # (Auto) 3.6 x10^3uL (1.8-7.7) Lymphocytes # (Auto) 2.3 x10^3/uL (1.0-4.8) Monocytes # (Auto) 1.3 x10^3/uL (0.0-1.1) H Eosinophils # (Auto) 0.0 x10^3/uL (0.0-0.7) Basophils # (Auto) 0.0 x10^3/uL (0.0-0.2) Current Medications: Meds: Laboratory Tests Test 06/24/20 07:57 06/24/20 09:30 06/24/20 09:35 Glucose (Fingerstick) 173 mg/dL Sodium Level 140 mmol/L Potassium Level 4.3 mmol/L Chloride Level 103 mmol/L Carbon Dioxide Level 30 mmol/L Anion Gap 7 Blood Urea Nitrogen 14 mg/dL Creatinine 0.8 mg/dL Estimated GFR (Cockcroft-Gault) 99.3 BUN/Creatinine Ratio 18 Glucose Level 169 mg/dL Calcium Level 9.1 mg/dL Total Bilirubin 0.2 mg/dL Aspartate Amino Transf (AST/SGOT) 8 U/L Alanine Aminotransferase (ALT/SGPT) 13 U/L Alkaline Phosphatase 56 U/L Total Protein 7.0 g/dL Albumin 2.5 g/dL Albumin/Globulin Ratio 0.6 White Blood Count 7.3 x10^3/uL Red Blood Count 4.19 x10^6/uL Hemoglobin 14.8 g/dL Hematocrit 44.3 % Mean Corpuscular Volume 106 fL Mean Corpuscular Hemoglobin 35 pg Mean Corpuscular Hemoglobin Concent 33 g/dL Red Cell Distribution Width 14.4 % Platelet Count 171 x10^3/uL Neutrophils (%) (Auto) 49 % Lymphocytes (%) (Auto) 32 % Monocytes (%) (Auto) 18 % Eosinophils (%) (Auto) 1 % Basophils (%) (Auto) 0 % Neutrophils # (Auto) 3.6 x10^3uL Lymphocytes # (Auto) 2.3 x10^3/uL Monocytes # (Auto) 1.3 x10^3/uL Eosinophils # (Auto) 0.0 x10^3/uL Basophils # (Auto) 0.0 x10^3/uL Current Medications Medications (Trade) Dose Ordered Sig/Samm Route PRN Reason Start Time Stop Time Status Last Admin Dose Admin Acetaminophen (Tylenol) 650 mg PRN Q4HRS PRN PO pain or fever 06/15/20 11:30 Bisacodyl (Dulcolax Supp) 10 mg PRN DAILY PRN RC 2ND CHOICE CONSTIPATION 06/15/20 11:30 Clonazepam (KlonoPIN) 0.5 mg HS PO 06/15/20 21:00 06/24/20 20:35 Al Hydroxide/Mg Hydroxide (Mylanta Plus Xs) 30 ml Q6HRS PRN PO HEARTBURN/INDIGESTION 06/15/20 11:30 06/15/20 14:34 DC Nystatin (Nystop) 1 shay BID TP 06/15/20 21:00 06/24/20 20:35 Quetiapine Fumarate (SEROquel) 25 mg BID PO 06/15/20 21:00 06/24/20 17:47 DC 06/24/20 06:47 Valproic Acid (Depakene) 500 mg DAILY PO 06/16/20 09:00 06/24/20 06:47 Valproic Acid (Depakene) 750 mg HS PO 06/15/20 21:00 06/24/20 20:35 Vitamin D (Vitamin D3) 500 unit DAILY PO 06/16/20 09:00 06/24/20 06:48 Citalopram Hydrobromide (CeleXA) 40 mg DAILY PO 06/16/20 09:00 06/18/20 11:56 DC 06/18/20 08:41 Magnesium Hydroxide (Milk Of Magnesia) 2,400 mg PRN DAILY PRN PO CONSTIPATION 06/15/20 12:15 06/15/20 14:34 DC Non-Formulary Medication (Menthol (Biofreeze)) 1 shay Q6HRS TP 06/15/20 12:00 06/15/20 12:07 DC Metformin HCl (Glucophage) 1,000 mg BIDWMEALS PO 06/15/20 17:00 06/24/20 16:27 Multi-Ingredient Ointment (Analgesic [place]) 1 shay PRN Q6HRS PRN TP MUSCLE SPASTICITY 06/15/20 12:15 06/15/20 14:34 DC Ketoconazole (Nizoral 2% Shampoo) 1 shay MoTh TP 06/18/20 09:00 06/21/20 08:05 Acetaminophen (Tylenol) 650 mg PRN Q6HRS PRN PO MILD PAIN / TEMP > 100.3'F 06/15/20 12:15 UNV Multi-Ingredient Ointment (Analgesic [place]) 1 shay PRN QID PRN TP MUSCLE PAIN 06/15/20 12:15 Al Hydroxide/Mg Hydroxide (Mylanta Plus Xs) 15 ml PRN AFTMEALHC PRN PO DYSPEPSIA 06/15/20 12:15 Magnesium Hydroxide (Milk Of Magnesia) 2,400 mg PRN QHS PRN PO 1ST CHOICE CONSTIPATION 06/15/20 12:15 Nicotine (Nicoderm Cq 14mg Patch) 1 patch DAILY TD 06/15/20 19:20 Glimepiride (Amaryl) 2 mg BIDWMEALS PO 06/17/20 17:00 06/24/20 16:27 Fluvoxamine Maleate (Luvox) 25 mg DAILY08 PO 06/19/20 08:00 06/21/20 23:50 DC 06/21/20 08:04 Fluvoxamine Maleate (Luvox) 50 mg DAILY08 PO 06/22/20 08:00 06/22/20 18:39 DC 06/22/20 08:47 Amoxicillin (Amoxil) 500 mg [id number] PO 06/18/20 15:15 06/28/20 15:14 06/24/20 20:35 Lactobacillus Rhamnosus (Culturelle) 1 cap BID PO 06/18/20 21:00 06/24/20 20:35 Fluvoxamine Maleate (Luvox) 75 mg DAILY PO 06/25/20 09:00 Fluvoxamine Maleate (Luvox) 50 mg DAILY PO 06/23/20 09:00 06/24/20 09:01 DC 06/24/20 06:47 Levothyroxine Sodium (Synthroid) 50 mcg DAILY06 PO 06/24/20 06:00 06/25/20 06:10 Olanzapine (ZyPREXA) 5 mg PRN Q2HR PRN PO PSYCHOSIS 06/23/20 16:00 06/24/20 12:36 Quetiapine Fumarate (SEROquel) 25 mg 0900,1300,1700 PO 06/24/20 18:00 06/24/20 18:19 Current Medications Medications (Trade) Dose Ordered Sig/Samm Route PRN Reason Start Time Stop Time Status Last Admin Dose Admin Quetiapine Fumarate (SEROquel) 25 mg 0900,1300,1700 PO 06/24/20 18:00 06/24/20 18:19 I have reviewed the current psychotropics carefully including drug interactions. Risk benefit ratio favors no change other than as noted in my dictated progress note. Diagnosis: Problems: (1) Schizoaffective disorder, bipolar type (2) Impulse control disorder, unspecified (3) Anxiety disorder, unspecified (4) Bipolar disorder, curr episode mixed, severe, with psychotic features CAREN MALIK MD June 25, 2020 06:58
--- NOTE | 2020-06-25 07:30 | PDOC ---
Exam Note: Kwasi Note: This note is a late entry for 06/23/2020 covers elements not covered in my initial note. Subjective: The patient was seen individually in the evening of 06/23/2020 with Chong GAUTAM, discussed and reviewed the chart. He slept 7-1/4 hours previous night. The patient has been agitated in the evening, restless, had to go to the quiet room. I met with him after this and addressed again behavior modification at length. He has limited insight and blames staff members but was able to process cognitive behavioral ways to help improve impulse control. Review of Systems: Ambulation impaired in wheelchair. No CV, , pulmonary, eye, ENT system symptoms on review. Mental Status Exam: The patient is oriented to himself. Insight and judgment, recent and remote memory, attention and concentration, fund of knowledge is poor consistent with his diagnoses. No suicidal or homicidal ideation. Laboratory Data: Reviewed. Impression: Schizoaffective disorder, bipolar type mixed with psychotic features. Anxiety disorder unspecified. Impulse control disorder unspecified. Plan: Continue current psychotropics. We will use p.r.n. Zyprexa to help his mood lability and agitation. Assessment: Vital Signs/I&O: Vital Signs Date Time Temp Pulse Resp B/P (MAP) Pulse Ox O2 Delivery O2 Flow Rate FiO2 06/25/20 06:08 97.5 48 14 103/68 (80) 94 06/24/20 06:26 Room Air I & O 06/24/20 06/24/20 06/25/20 15:00 23:00 07:00 Intake Total 720 ml 480 ml Balance 720 ml 480 ml Labs: Laboratory Tests Test 06/24/20 07:57 06/24/20 09:30 06/24/20 09:35 Glucose (Fingerstick) 173 mg/dL (70-99) H Sodium Level 140 mmol/L (136-145) Potassium Level 4.3 mmol/L (3.5-5.1) Chloride Level 103 mmol/L (98-107) Carbon Dioxide Level 30 mmol/L (21-32) Anion Gap 7 (6-14) Blood Urea Nitrogen 14 mg/dL (8-26) Creatinine 0.8 mg/dL (0.7-1.3) Estimated GFR (Cockcroft-Gault) 99.3 BUN/Creatinine Ratio 18 (6-20) Glucose Level 169 mg/dL (70-99) H Calcium Level 9.1 mg/dL (8.5-10.1) Total Bilirubin 0.2 mg/dL (0.2-1.0) Aspartate Amino Transferase (AST) 8 U/L (15-37) L Alanine Aminotransferase (ALT) 13 U/L (16-63) L Alkaline Phosphatase 56 U/L (46-116) Total Protein 7.0 g/dL (6.4-8.2) Albumin 2.5 g/dL (3.4-5.0) L Albumin/Globulin Ratio 0.6 (1.0-1.7) L White Blood Count 7.3 x10^3/uL (4.0-11.0) Red Blood Count 4.19 x10^6/uL (4.30-5.70) L Hemoglobin 14.8 g/dL (13.0-17.5) Hematocrit 44.3 % (39.0-53.0) Mean Corpuscular Volume 106 fL (79-100) H Mean Corpuscular Hemoglobin 35 pg (25-35) Mean Corpuscular Hemoglobin Concent 33 g/dL (31-37) Red Cell Distribution Width 14.4 % (11.5-14.5) Platelet Count 171 x10^3/uL (140-400) Neutrophils (%) (Auto) 49 % (31-73) Lymphocytes (%) (Auto) 32 % (24-48) Monocytes (%) (Auto) 18 % (0-9) H Eosinophils (%) (Auto) 1 % (0-3) Basophils (%) (Auto) 0 % (0-3) Neutrophils # (Auto) 3.6 x10^3uL (1.8-7.7) Lymphocytes # (Auto) 2.3 x10^3/uL (1.0-4.8) Monocytes # (Auto) 1.3 x10^3/uL (0.0-1.1) H Eosinophils # (Auto) 0.0 x10^3/uL (0.0-0.7) Basophils # (Auto) 0.0 x10^3/uL (0.0-0.2) Current Medications: Meds: Laboratory Tests Test 06/24/20 07:57 06/24/20 09:30 06/24/20 09:35 Glucose (Fingerstick) 173 mg/dL Sodium Level 140 mmol/L Potassium Level 4.3 mmol/L Chloride Level 103 mmol/L Carbon Dioxide Level 30 mmol/L Anion Gap 7 Blood Urea Nitrogen 14 mg/dL Creatinine 0.8 mg/dL Estimated GFR (Cockcroft-Gault) 99.3 BUN/Creatinine Ratio 18 Glucose Level 169 mg/dL Calcium Level 9.1 mg/dL Total Bilirubin 0.2 mg/dL Aspartate Amino Transf (AST/SGOT) 8 U/L Alanine Aminotransferase (ALT/SGPT) 13 U/L Alkaline Phosphatase 56 U/L Total Protein 7.0 g/dL Albumin 2.5 g/dL Albumin/Globulin Ratio 0.6 White Blood Count 7.3 x10^3/uL Red Blood Count 4.19 x10^6/uL Hemoglobin 14.8 g/dL Hematocrit 44.3 % Mean Corpuscular Volume 106 fL Mean Corpuscular Hemoglobin 35 pg Mean Corpuscular Hemoglobin Concent 33 g/dL Red Cell Distribution Width 14.4 % Platelet Count 171 x10^3/uL Neutrophils (%) (Auto) 49 % Lymphocytes (%) (Auto) 32 % Monocytes (%) (Auto) 18 % Eosinophils (%) (Auto) 1 % Basophils (%) (Auto) 0 % Neutrophils # (Auto) 3.6 x10^3uL Lymphocytes # (Auto) 2.3 x10^3/uL Monocytes # (Auto) 1.3 x10^3/uL Eosinophils # (Auto) 0.0 x10^3/uL Basophils # (Auto) 0.0 x10^3/uL Current Medications Medications (Trade) Dose Ordered Sig/Samm Route PRN Reason Start Time Stop Time Status Last Admin Dose Admin Acetaminophen (Tylenol) 650 mg PRN Q4HRS PRN PO pain or fever 06/15/20 11:30 Bisacodyl (Dulcolax Supp) 10 mg PRN DAILY PRN RC 2ND CHOICE CONSTIPATION 06/15/20 11:30 Clonazepam (KlonoPIN) 0.5 mg HS PO 06/15/20 21:00 06/24/20 20:35 Al Hydroxide/Mg Hydroxide (Mylanta Plus Xs) 30 ml Q6HRS PRN PO HEARTBURN/INDIGESTION 06/15/20 11:30 06/15/20 14:34 DC Nystatin (Nystop) 1 shay BID TP 06/15/20 21:00 06/24/20 20:35 Quetiapine Fumarate (SEROquel) 25 mg BID PO 06/15/20 21:00 06/24/20 17:47 DC 06/24/20 06:47 Valproic Acid (Depakene) 500 mg DAILY PO 06/16/20 09:00 06/24/20 06:47 Valproic Acid (Depakene) 750 mg HS PO 06/15/20 21:00 06/24/20 20:35 Vitamin D (Vitamin D3) 500 unit DAILY PO 06/16/20 09:00 06/24/20 06:48 Citalopram Hydrobromide (CeleXA) 40 mg DAILY PO 06/16/20 09:00 06/18/20 11:56 DC 06/18/20 08:41 Magnesium Hydroxide (Milk Of Magnesia) 2,400 mg PRN DAILY PRN PO CONSTIPATION 06/15/20 12:15 06/15/20 14:34 DC Non-Formulary Medication (Menthol (Biofreeze)) 1 shay Q6HRS TP 06/15/20 12:00 06/15/20 12:07 DC Metformin HCl (Glucophage) 1,000 mg BIDWMEALS PO 06/15/20 17:00 06/24/20 16:27 Multi-Ingredient Ointment (Analgesic [place]) 1 shay PRN Q6HRS PRN TP MUSCLE SPASTICITY 06/15/20 12:15 06/15/20 14:34 DC Ketoconazole (Nizoral 2% Shampoo) 1 shay MoTh TP 06/18/20 09:00 06/21/20 08:05 Acetaminophen (Tylenol) 650 mg PRN Q6HRS PRN PO MILD PAIN / TEMP > 100.3'F 06/15/20 12:15 UNV Multi-Ingredient Ointment (Analgesic [place]) 1 shay PRN QID PRN TP MUSCLE PAIN 06/15/20 12:15 Al Hydroxide/Mg Hydroxide (Mylanta Plus Xs) 15 ml PRN AFTMEALHC PRN PO DYSPEPSIA 06/15/20 12:15 Magnesium Hydroxide (Milk Of Magnesia) 2,400 mg PRN QHS PRN PO 1ST CHOICE CONSTIPATION 06/15/20 12:15 Nicotine (Nicoderm Cq 14mg Patch) 1 patch DAILY TD 06/15/20 19:20 Glimepiride (Amaryl) 2 mg BIDWMEALS PO 06/17/20 17:00 06/24/20 16:27 Fluvoxamine Maleate (Luvox) 25 mg DAILY08 PO 06/19/20 08:00 06/21/20 23:50 DC 06/21/20 08:04 Fluvoxamine Maleate (Luvox) 50 mg DAILY08 PO 06/22/20 08:00 06/22/20 18:39 DC 06/22/20 08:47 Amoxicillin (Amoxil) 500 mg [id number] PO 06/18/20 15:15 06/28/20 15:14 06/24/20 20:35 Lactobacillus Rhamnosus (Culturelle) 1 cap BID PO 06/18/20 21:00 06/24/20 20:35 Fluvoxamine Maleate (Luvox) 75 mg DAILY PO 06/25/20 09:00 Fluvoxamine Maleate (Luvox) 50 mg DAILY PO 06/23/20 09:00 06/24/20 09:01 DC 06/24/20 06:47 Levothyroxine Sodium (Synthroid) 50 mcg DAILY06 PO 06/24/20 06:00 06/25/20 06:10 Olanzapine (ZyPREXA) 5 mg PRN Q2HR PRN PO PSYCHOSIS 06/23/20 16:00 06/24/20 12:36 Quetiapine Fumarate (SEROquel) 25 mg 0900,1300,1700 PO 06/24/20 18:00 06/24/20 18:19 Current Medications Medications (Trade) Dose Ordered Sig/Samm Route PRN Reason Start Time Stop Time Status Last Admin Dose Admin Quetiapine Fumarate (SEROquel) 25 mg 0900,1300,1700 PO 06/24/20 18:00 06/24/20 18:19 I have reviewed the current psychotropics carefully including drug interactions. Risk benefit ratio favors no change other than as noted in my dictated progress note. Diagnosis: Problems: (1) Schizoaffective disorder, bipolar type (2) Impulse control disorder, unspecified (3) Anxiety disorder, unspecified (4) Bipolar disorder, curr episode mixed, severe, with psychotic features CAREN MALIK MD June 25, 2020 07:30
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
[2020-06-25] MEDS: metFORMIN 500 MG TABLET PO SCH ×2 (08:35→17:20)
[2020-06-25] MEDS: VALPROIC ACID 250 MG CAPSULE. PO SCH ×2 (08:35→20:24)
[2020-06-25] MEDS: CHOLECALCIFEROL (VITAMIN D3) 1,000 UNIT TABLET PO SCH (08:36)
[2020-06-25] MEDS: AMOXICILLIN 250 MG CAPSULE PO SCH ×3 (08:36→20:24)
[2020-06-25] MEDS: QUEtiapine 25 MG TABLET. PO SCH ×3 (08:36→17:20)
[2020-06-25] MEDS: GLIMEPIRIDE 2 MG TABLET PO SCH ×2 (08:36→17:20)
[2020-06-25] MEDS: LACTOBACILLUS RHAMNOSUS GG 1 CAPSULE. PO SCH ×2 (08:36→20:24)
[2020-06-25] MEDS: KETOCONAZOLE 2% SHAMPOO 120ML BOTTLE. TP SCH (08:37)
[2020-06-25] MEDS: NICOTINE 14MG PATCH. TD SCH (08:37)
[2020-06-25] MEDS: NYSTATIN TOPICAL POWDER 15GM BOTTLE. TP SCH ×2 (08:41→20:24)
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
[2020-06-25 15:49] VITALS: BP 96/68
[2020-06-25 20:06] VITALS: BP 96/66
[2020-06-25] MEDS: clonazePAM 0.5 MG TABLET PO SCH (20:24)
--- NOTE | 2020-06-25 21:57 | PDOC ---
Exam Note: Kwasi Note: Please also refer to the separate dictated note~for this date of service dictated separately.~Patient seen individually. Discussed the patient with Nursing staff reviewed the chart.~Reviewed interim history and current functioning. Reviewed vital signs,~Labs/ Radiology~and current medications noted below. Continue current treatment with the changes noted in the dictated addendum note Assessment: Vital Signs/I&O: Vital Signs Date Time Temp Pulse Resp B/P (MAP) Pulse Ox O2 Delivery O2 Flow Rate FiO2 06/25/20 20:06 74 18 96/66 (76) Room Air 06/25/20 15:49 96.9 94 I & O 06/24/20 06/24/20 06/25/20 15:00 23:00 07:00 Intake Total 720 ml 480 ml Balance 720 ml 480 ml Labs: Laboratory Tests Test 06/25/20 07:49 Glucose (Fingerstick) 327 mg/dL (70-99) H Current Medications: Meds: Laboratory Tests Test 06/25/20 07:49 Glucose (Fingerstick) 327 mg/dL Current Medications Medications (Trade) Dose Ordered Sig/Samm Route PRN Reason Start Time Stop Time Status Last Admin Dose Admin Acetaminophen (Tylenol) 650 mg PRN Q4HRS PRN PO pain or fever 06/15/20 11:30 Bisacodyl (Dulcolax Supp) 10 mg PRN DAILY PRN RC 2ND CHOICE CONSTIPATION 06/15/20 11:30 Clonazepam (KlonoPIN) 0.5 mg HS PO 06/15/20 21:00 06/25/20 20:24 Al Hydroxide/Mg Hydroxide (Mylanta Plus Xs) 30 ml Q6HRS PRN PO HEARTBURN/INDIGESTION 06/15/20 11:30 06/15/20 14:34 DC Nystatin (Nystop) 1 shay BID TP 06/15/20 21:00 06/25/20 20:24 Quetiapine Fumarate (SEROquel) 25 mg BID PO 06/15/20 21:00 06/24/20 17:47 DC 06/24/20 06:47 Valproic Acid (Depakene) 500 mg DAILY PO 06/16/20 09:00 06/25/20 08:35 Valproic Acid (Depakene) 750 mg HS PO 06/15/20 21:00 06/25/20 20:24 Vitamin D (Vitamin D3) 500 unit DAILY PO 06/16/20 09:00 06/25/20 08:36 Citalopram Hydrobromide (CeleXA) 40 mg DAILY PO 06/16/20 09:00 06/18/20 11:56 DC 06/18/20 08:41 Magnesium Hydroxide (Milk Of Magnesia) 2,400 mg PRN DAILY PRN PO CONSTIPATION 06/15/20 12:15 06/15/20 14:34 DC Non-Formulary Medication (Menthol (Biofreeze)) 1 shay Q6HRS TP 06/15/20 12:00 06/15/20 12:07 DC Metformin HCl (Glucophage) 1,000 mg BIDWMEALS PO 06/15/20 17:00 06/25/20 17:20 Multi-Ingredient Ointment (Analgesic [place]) 1 shay PRN Q6HRS PRN TP MUSCLE SPASTICITY 06/15/20 12:15 06/15/20 14:34 DC Ketoconazole (Nizoral 2% Shampoo) 1 shay MoTh TP 06/18/20 09:00 06/25/20 08:37 Acetaminophen (Tylenol) 650 mg PRN Q6HRS PRN PO MILD PAIN / TEMP > 100.3'F 06/15/20 12:15 UNV Multi-Ingredient Ointment (Analgesic [place]) 1 shay PRN QID PRN TP MUSCLE PAIN 06/15/20 12:15 Al Hydroxide/Mg Hydroxide (Mylanta Plus Xs) 15 ml PRN AFTMEALHC PRN PO DYSPEPSIA 06/15/20 12:15 Magnesium Hydroxide (Milk Of Magnesia) 2,400 mg PRN QHS PRN PO 1ST CHOICE CONSTIPATION 06/15/20 12:15 Nicotine (Nicoderm Cq 14mg Patch) 1 patch DAILY TD 06/15/20 19:20 Glimepiride (Amaryl) 2 mg BIDWMEALS PO 06/17/20 17:00 06/25/20 17:20 Fluvoxamine Maleate (Luvox) 25 mg DAILY08 PO 06/19/20 08:00 06/21/20 23:50 DC 06/21/20 08:04 Fluvoxamine Maleate (Luvox) 50 mg DAILY08 PO 06/22/20 08:00 06/22/20 18:39 DC 06/22/20 08:47 Amoxicillin (Amoxil) 500 mg [id number] PO 06/18/20 15:15 06/28/20 15:14 06/25/20 20:24 Lactobacillus Rhamnosus (Culturelle) 1 cap BID PO 06/18/20 21:00 06/25/20 20:24 Fluvoxamine Maleate (Luvox) 75 mg DAILY PO 06/25/20 09:00 06/25/20 08:35 Fluvoxamine Maleate (Luvox) 50 mg DAILY PO 06/23/20 09:00 06/24/20 09:01 DC 06/24/20 06:47 Levothyroxine Sodium (Synthroid) 50 mcg DAILY06 PO 06/24/20 06:00 06/25/20 06:10 Olanzapine (ZyPREXA) 5 mg PRN Q2HR PRN PO PSYCHOSIS 06/23/20 16:00 06/24/20 12:36 Quetiapine Fumarate (SEROquel) 25 mg 0900,1300,1700 PO 06/24/20 18:00 06/25/20 17:20 Current Medications Medications (Trade) Dose Ordered Sig/Samm Route PRN Reason Start Time Stop Time Status Last Admin Dose Admin Fluvoxamine Maleate (Luvox) 75 mg DAILY PO 06/25/20 09:00 06/25/20 08:35 I have reviewed the current psychotropics carefully including drug interactions. Risk benefit ratio favors no change other than as noted in my dictated progress note. Diagnosis: Problems: (1) Schizoaffective disorder, bipolar type (2) Impulse control disorder, unspecified (3) Anxiety disorder, unspecified (4) Bipolar disorder, curr episode mixed, severe, with psychotic features CAREN MALIK MD June 25, 2020 21:57
[2020-06-26 05:36] VITALS: BP 108/67
[2020-06-26] MEDS: LEVOTHYROXINE 50 MCG TABLET PO SCH (05:46)
[2020-06-26] MEDS: metFORMIN 500 MG TABLET PO SCH ×2 (08:26→17:16)
[2020-06-26] MEDS: QUEtiapine 25 MG TABLET. PO SCH ×3 (08:26→17:16)
[2020-06-26] MEDS: GLIMEPIRIDE 2 MG TABLET PO SCH ×2 (08:26→17:16)
[2020-06-26] MEDS: VALPROIC ACID 250 MG CAPSULE. PO SCH ×2 (08:26→20:54)
[2020-06-26] MEDS: AMOXICILLIN 250 MG CAPSULE PO SCH ×3 (08:26→20:54)
[2020-06-26] MEDS: NICOTINE 14MG PATCH. TD SCH (08:27)
[2020-06-26] MEDS: LACTOBACILLUS RHAMNOSUS GG 1 CAPSULE. PO SCH ×2 (08:27→20:54)
[2020-06-26] MEDS: NYSTATIN TOPICAL POWDER 15GM BOTTLE. TP SCH ×2 (08:27→20:54)
[2020-06-26] MEDS: CHOLECALCIFEROL (VITAMIN D3) 1,000 UNIT TABLET PO SCH (08:27)
[2020-06-26 15:30] VITALS: BP 116/67
[2020-06-26] MEDS: clonazePAM 0.5 MG TABLET PO SCH (20:54)
--- NOTE | 2020-06-26 22:47 | PDOC ---
Exam Note: Kwasi Note: Please also refer to the separate dictated note~for this date of service dictated separately.~Patient seen individually. Discussed the patient with Nursing staff reviewed the chart.~Reviewed interim history and current functioning. Reviewed vital signs,~Labs/ Radiology~and current medications noted below. Continue current treatment with the changes noted in the dictated addendum note Assessment: Vital Signs/I&O: Vital Signs Date Time Temp Pulse Resp B/P (MAP) Pulse Ox O2 Delivery O2 Flow Rate FiO2 06/26/20 15:30 97.9 70 20 116/67 (83) 94 06/25/20 20:06 Room Air I & O 06/25/20 06/25/20 06/26/20 15:00 23:00 07:00 Intake Total 600 ml 360 ml 120 ml Balance 600 ml 360 ml 120 ml Labs: Laboratory Tests Test 06/26/20 07:50 Glucose (Fingerstick) 134 mg/dL (70-99) H Current Medications: Meds: Laboratory Tests Test 06/26/20 07:50 Glucose (Fingerstick) 134 mg/dL Current Medications Medications (Trade) Dose Ordered Sig/Samm Route PRN Reason Start Time Stop Time Status Last Admin Dose Admin Acetaminophen (Tylenol) 650 mg PRN Q4HRS PRN PO pain or fever 06/15/20 11:30 Bisacodyl (Dulcolax Supp) 10 mg PRN DAILY PRN RC 2ND CHOICE CONSTIPATION 06/15/20 11:30 Clonazepam (KlonoPIN) 0.5 mg HS PO 06/15/20 21:00 06/26/20 20:54 Al Hydroxide/Mg Hydroxide (Mylanta Plus Xs) 30 ml Q6HRS PRN PO HEARTBURN/INDIGESTION 06/15/20 11:30 06/15/20 14:34 DC Nystatin (Nystop) 1 shay BID TP 06/15/20 21:00 06/26/20 20:54 Quetiapine Fumarate (SEROquel) 25 mg BID PO 06/15/20 21:00 06/24/20 17:47 DC 06/24/20 06:47 Valproic Acid (Depakene) 500 mg DAILY PO 06/16/20 09:00 06/26/20 08:26 Valproic Acid (Depakene) 750 mg HS PO 06/15/20 21:00 06/26/20 20:54 Vitamin D (Vitamin D3) 500 unit DAILY PO 06/16/20 09:00 06/26/20 08:27 Citalopram Hydrobromide (CeleXA) 40 mg DAILY PO 06/16/20 09:00 06/18/20 11:56 DC 06/18/20 08:41 Magnesium Hydroxide (Milk Of Magnesia) 2,400 mg PRN DAILY PRN PO CONSTIPATION 06/15/20 12:15 06/15/20 14:34 DC Non-Formulary Medication (Menthol (Biofreeze)) 1 shay Q6HRS TP 06/15/20 12:00 06/15/20 12:07 DC Metformin HCl (Glucophage) 1,000 mg BIDWMEALS PO 06/15/20 17:00 06/26/20 17:16 Multi-Ingredient Ointment (Analgesic [place]) 1 shay PRN Q6HRS PRN TP MUSCLE SPASTICITY 06/15/20 12:15 06/15/20 14:34 DC Ketoconazole (Nizoral 2% Shampoo) 1 shay MoTh TP 06/18/20 09:00 06/25/20 08:37 Acetaminophen (Tylenol) 650 mg PRN Q6HRS PRN PO MILD PAIN / TEMP > 100.3'F 06/15/20 12:15 UNV Multi-Ingredient Ointment (Analgesic [place]) 1 shay PRN QID PRN TP MUSCLE PAIN 06/15/20 12:15 Al Hydroxide/Mg Hydroxide (Mylanta Plus Xs) 15 ml PRN AFTMEALHC PRN PO DYSPEPSIA 06/15/20 12:15 Magnesium Hydroxide (Milk Of Magnesia) 2,400 mg PRN QHS PRN PO 1ST CHOICE CONSTIPATION 06/15/20 12:15 Nicotine (Nicoderm Cq 14mg Patch) 1 patch DAILY TD 06/15/20 19:20 Glimepiride (Amaryl) 2 mg BIDWMEALS PO 06/17/20 17:00 06/26/20 17:16 Fluvoxamine Maleate (Luvox) 25 mg DAILY08 PO 06/19/20 08:00 06/21/20 23:50 DC 06/21/20 08:04 Fluvoxamine Maleate (Luvox) 50 mg DAILY08 PO 06/22/20 08:00 06/22/20 18:39 DC 06/22/20 08:47 Amoxicillin (Amoxil) 500 mg [id number] PO 06/18/20 15:15 06/28/20 15:14 06/26/20 20:54 Lactobacillus Rhamnosus (Culturelle) 1 cap BID PO 06/18/20 21:00 06/26/20 20:54 Fluvoxamine Maleate (Luvox) 75 mg DAILY PO 06/25/20 09:00 06/26/20 08:27 Fluvoxamine Maleate (Luvox) 50 mg DAILY PO 06/23/20 09:00 06/24/20 09:01 DC 06/24/20 06:47 Levothyroxine Sodium (Synthroid) 50 mcg DAILY06 PO 06/24/20 06:00 06/26/20 05:46 Olanzapine (ZyPREXA) 5 mg PRN Q2HR PRN PO PSYCHOSIS 06/23/20 16:00 06/24/20 12:36 Quetiapine Fumarate (SEROquel) 25 mg 0900,1300,1700 PO 06/24/20 18:00 06/26/20 17:16 I have reviewed the current psychotropics carefully including drug interactions. Risk benefit ratio favors no change other than as noted in my dictated progress note. Diagnosis: Problems: (1) Schizoaffective disorder, bipolar type (2) Impulse control disorder, unspecified (3) Anxiety disorder, unspecified (4) Bipolar disorder, curr episode mixed, severe, with psychotic features CAREN MALIK MD June 26, 2020 22:47
[2020-06-27] MEDS: NYSTATIN TOPICAL POWDER 15GM BOTTLE. TP SCH ×2 (05:56→20:23)
[2020-06-27] MEDS: LEVOTHYROXINE 50 MCG TABLET PO SCH (05:57)
[2020-06-27 06:25] VITALS: BP 112/60
--- NOTE | 2020-06-27 07:57 | PDOC ---
Exam Note: Kwasi Note: This note is a late entry for 06/25/2020 covers elements not covered in my initial note. Subjective: The patient was reviewed in the morning of 06/25/2020 for a treatment team meeting with Latia Gil, Kylah Newman and Marlyn (delinquency prevention social worker), Mariana, activity therapy and Chong GAUTAM, discussed and reviewed the chart. He slept 7-3/4 hours previous night. automotive tire worker from [facility] attended the conference as well. Appetite is 100%. At times he is easily agitated and becomes threatening to staff during cares. He remains hyperverbal at times but better today. When talked about placement he wants to go to [place] or nursing facility in [place] because he says he has family there. Review of Systems: Ambulation impaired in wheelchair. No CV, , pulmonary, eye, ENT system symptoms on review. Reliability varies. Mental Status Exam: The patient is oriented to himself. Speech coherent. Abstraction fair. Computation impaired. Language function intact. Mood and affect somewhat anxious, at times labile, but improved. No suicidal or homicidal ideation. During individual visit we addressed at length ways to help improve his impulse control. Laboratory Data: Reviewed. Impression: Schizoaffective disorder, bipolar type mixed with psychotic features. Anxiety disorder unspecified. Impulse control disorder unspecified. Plan: Continue current psychotropics. Assessment: Vital Signs/I&O: Vital Signs Date Time Temp Pulse Resp B/P (MAP) Pulse Ox O2 Delivery O2 Flow Rate FiO2 06/27/20 06:25 97.8 54 18 112/60 (77) 94 06/25/20 20:06 Room Air I & O 06/26/20 06/26/20 06/27/20 15:00 23:00 07:00 Intake Total 600 ml 600 ml Balance 600 ml 600 ml Labs: Laboratory Tests Test 06/27/20 07:43 Glucose (Fingerstick) 121 mg/dL (70-99) H Current Medications: Meds: Laboratory Tests Test 06/27/20 07:43 Glucose (Fingerstick) 121 mg/dL Current Medications Medications (Trade) Dose Ordered Sig/Samm Route PRN Reason Start Time Stop Time Status Last Admin Dose Admin Acetaminophen (Tylenol) 650 mg PRN Q4HRS PRN PO pain or fever 06/15/20 11:30 Bisacodyl (Dulcolax Supp) 10 mg PRN DAILY PRN RC 2ND CHOICE CONSTIPATION 06/15/20 11:30 Clonazepam (KlonoPIN) 0.5 mg HS PO 06/15/20 21:00 06/26/20 20:54 Al Hydroxide/Mg Hydroxide (Mylanta Plus Xs) 30 ml Q6HRS PRN PO HEARTBURN/INDIGESTION 06/15/20 11:30 06/15/20 14:34 DC Nystatin (Nystop) 1 hsay BID TP 06/15/20 21:00 06/27/20 05:56 Quetiapine Fumarate (SEROquel) 25 mg BID PO 06/15/20 21:00 06/24/20 17:47 DC 06/24/20 06:47 Valproic Acid (Depakene) 500 mg DAILY PO 06/16/20 09:00 06/26/20 08:26 Valproic Acid (Depakene) 750 mg HS PO 06/15/20 21:00 06/26/20 20:54 Vitamin D (Vitamin D3) 500 unit DAILY PO 06/16/20 09:00 06/26/20 08:27 Citalopram Hydrobromide (CeleXA) 40 mg DAILY PO 06/16/20 09:00 06/18/20 11:56 DC 06/18/20 08:41 Magnesium Hydroxide (Milk Of Magnesia) 2,400 mg PRN DAILY PRN PO CONSTIPATION 06/15/20 12:15 06/15/20 14:34 DC Non-Formulary Medication (Menthol (Biofreeze)) 1 shay Q6HRS TP 06/15/20 12:00 06/15/20 12:07 DC Metformin HCl (Glucophage) 1,000 mg BIDWMEALS PO 06/15/20 17:00 06/26/20 17:16 Multi-Ingredient Ointment (Analgesic [place]) 1 shay PRN Q6HRS PRN TP MUSCLE SPASTICITY 06/15/20 12:15 06/15/20 14:34 DC Ketoconazole (Nizoral 2% Shampoo) 1 shay MoTh TP 06/18/20 09:00 06/25/20 08:37 Acetaminophen (Tylenol) 650 mg PRN Q6HRS PRN PO MILD PAIN / TEMP > 100.3'F 06/15/20 12:15 UNV Multi-Ingredient Ointment (Analgesic [place]) 1 shay PRN QID PRN TP MUSCLE PAIN 06/15/20 12:15 Al Hydroxide/Mg Hydroxide (Mylanta Plus Xs) 15 ml PRN AFTMEALHC PRN PO DYSPEPSIA 06/15/20 12:15 Magnesium Hydroxide (Milk Of Magnesia) 2,400 mg PRN QHS PRN PO 1ST CHOICE CONSTIPATION 06/15/20 12:15 Nicotine (Nicoderm Cq 14mg Patch) 1 patch DAILY TD 06/15/20 19:20 Glimepiride (Amaryl) 2 mg BIDWMEALS PO 06/17/20 17:00 06/26/20 17:16 Fluvoxamine Maleate (Luvox) 25 mg DAILY08 PO 06/19/20 08:00 06/21/20 23:50 DC 06/21/20 08:04 Fluvoxamine Maleate (Luvox) 50 mg DAILY08 PO 06/22/20 08:00 06/22/20 18:39 DC 06/22/20 08:47 Amoxicillin (Amoxil) 500 mg [id number] PO 06/18/20 15:15 06/28/20 15:14 06/26/20 20:54 Lactobacillus Rhamnosus (Culturelle) 1 cap BID PO 06/18/20 21:00 06/26/20 20:54 Fluvoxamine Maleate (Luvox) 75 mg DAILY PO 06/25/20 09:00 06/26/20 08:27 Fluvoxamine Maleate (Luvox) 50 mg DAILY PO 06/23/20 09:00 06/24/20 09:01 DC 06/24/20 06:47 Levothyroxine Sodium (Synthroid) 50 mcg DAILY06 PO 06/24/20 06:00 06/27/20 05:57 Olanzapine (ZyPREXA) 5 mg PRN Q2HR PRN PO PSYCHOSIS 06/23/20 16:00 06/24/20 12:36 Quetiapine Fumarate (SEROquel) 25 mg 0900,1300,1700 PO 06/24/20 18:00 06/26/20 17:16 I have reviewed the current psychotropics carefully including drug interactions. Risk benefit ratio favors no change other than as noted in my dictated progress note. Diagnosis: Problems: (1) Schizoaffective disorder, bipolar type (2) Impulse control disorder, unspecified (3) Anxiety disorder, unspecified (4) Bipolar disorder, curr episode mixed, severe, with psychotic features CAREN MALIK MD June 27, 2020 07:57
[2020-06-27] MEDS: GLIMEPIRIDE 2 MG TABLET PO SCH ×2 (08:57→17:40)
[2020-06-27] MEDS: QUEtiapine 25 MG TABLET. PO SCH ×3 (08:57→17:40)
[2020-06-27] MEDS: AMOXICILLIN 250 MG CAPSULE PO SCH ×3 (08:58→20:19)
[2020-06-27] MEDS: LACTOBACILLUS RHAMNOSUS GG 1 CAPSULE. PO SCH ×2 (08:58→20:19)
[2020-06-27] MEDS: CHOLECALCIFEROL (VITAMIN D3) 1,000 UNIT TABLET PO SCH (08:58)
[2020-06-27] MEDS: VALPROIC ACID 250 MG CAPSULE. PO SCH ×2 (08:58→20:19)
[2020-06-27] MEDS: NICOTINE 14MG PATCH. TD SCH (08:58)
[2020-06-27] MEDS: metFORMIN 500 MG TABLET PO SCH ×2 (08:58→17:40)
[2020-06-27 16:13] VITALS: BP 118/75
[2020-06-27] MEDS: clonazePAM 0.5 MG TABLET PO SCH (20:19)
--- NOTE | 2020-06-27 21:58 | PDOC ---
Exam Note: Kwasi Note: Please also refer to the separate dictated note~for this date of service dictated separately.~Patient seen individually. Discussed the patient with Nursing staff reviewed the chart.~Reviewed interim history and current functioning. Reviewed vital signs,~Labs/ Radiology~and current medications noted below. Continue current treatment with the changes noted in the dictated addendum note Assessment: Vital Signs/I&O: Vital Signs Date Time Temp Pulse Resp B/P (MAP) Pulse Ox O2 Delivery O2 Flow Rate FiO2 06/27/20 16:13 97.3 56 18 118/75 (89) 97 Room Air I & O 06/26/20 06/26/20 06/27/20 15:00 23:00 07:00 Intake Total 600 ml 600 ml Balance 600 ml 600 ml Labs: Laboratory Tests Test 06/27/20 07:43 Glucose (Fingerstick) 121 mg/dL (70-99) H Current Medications: Meds: Laboratory Tests Test 06/27/20 07:43 Glucose (Fingerstick) 121 mg/dL Current Medications Medications (Trade) Dose Ordered Sig/Samm Route PRN Reason Start Time Stop Time Status Last Admin Dose Admin Acetaminophen (Tylenol) 650 mg PRN Q4HRS PRN PO pain or fever 06/15/20 11:30 Bisacodyl (Dulcolax Supp) 10 mg PRN DAILY PRN RC 2ND CHOICE CONSTIPATION 06/15/20 11:30 Clonazepam (KlonoPIN) 0.5 mg HS PO 06/15/20 21:00 06/27/20 20:19 Al Hydroxide/Mg Hydroxide (Mylanta Plus Xs) 30 ml Q6HRS PRN PO HEARTBURN/INDIGESTION 06/15/20 11:30 06/15/20 14:34 DC Nystatin (Nystop) 1 shay BID TP 06/15/20 21:00 06/27/20 20:23 Quetiapine Fumarate (SEROquel) 25 mg BID PO 06/15/20 21:00 06/24/20 17:47 DC 06/24/20 06:47 Valproic Acid (Depakene) 500 mg DAILY PO 06/16/20 09:00 06/27/20 08:58 Valproic Acid (Depakene) 750 mg HS PO 06/15/20 21:00 06/27/20 20:19 Vitamin D (Vitamin D3) 500 unit DAILY PO 06/16/20 09:00 06/27/20 08:58 Citalopram Hydrobromide (CeleXA) 40 mg DAILY PO 06/16/20 09:00 06/18/20 11:56 DC 06/18/20 08:41 Magnesium Hydroxide (Milk Of Magnesia) 2,400 mg PRN DAILY PRN PO CONSTIPATION 06/15/20 12:15 06/15/20 14:34 DC Non-Formulary Medication (Menthol (Biofreeze)) 1 shay Q6HRS TP 06/15/20 12:00 06/15/20 12:07 DC Metformin HCl (Glucophage) 1,000 mg BIDWMEALS PO 06/15/20 17:00 06/27/20 17:40 Multi-Ingredient Ointment (Analgesic [place]) 1 shay PRN Q6HRS PRN TP MUSCLE SPASTICITY 06/15/20 12:15 06/15/20 14:34 DC Ketoconazole (Nizoral 2% Shampoo) 1 shay MoTh TP 06/18/20 09:00 06/25/20 08:37 Acetaminophen (Tylenol) 650 mg PRN Q6HRS PRN PO MILD PAIN / TEMP > 100.3'F 06/15/20 12:15 UNV Multi-Ingredient Ointment (Analgesic [place]) 1 shay PRN QID PRN TP MUSCLE PAIN 06/15/20 12:15 Al Hydroxide/Mg Hydroxide (Mylanta Plus Xs) 15 ml PRN AFTMEALHC PRN PO DYSPEPSIA 06/15/20 12:15 Magnesium Hydroxide (Milk Of Magnesia) 2,400 mg PRN QHS PRN PO 1ST CHOICE CONSTIPATION 06/15/20 12:15 Nicotine (Nicoderm Cq 14mg Patch) 1 patch DAILY TD 06/15/20 19:20 Glimepiride (Amaryl) 2 mg BIDWMEALS PO 06/17/20 17:00 06/27/20 17:40 Fluvoxamine Maleate (Luvox) 25 mg DAILY08 PO 06/19/20 08:00 06/21/20 23:50 DC 06/21/20 08:04 Fluvoxamine Maleate (Luvox) 50 mg DAILY08 PO 06/22/20 08:00 06/22/20 18:39 DC 06/22/20 08:47 Amoxicillin (Amoxil) 500 mg [id number] PO 06/18/20 15:15 06/28/20 15:14 06/27/20 20:19 Lactobacillus Rhamnosus (Culturelle) 1 cap BID PO 06/18/20 21:00 06/27/20 20:19 Fluvoxamine Maleate (Luvox) 75 mg DAILY PO 06/25/20 09:00 06/27/20 08:57 Fluvoxamine Maleate (Luvox) 50 mg DAILY PO 06/23/20 09:00 06/24/20 09:01 DC 06/24/20 06:47 Levothyroxine Sodium (Synthroid) 50 mcg DAILY06 PO 06/24/20 06:00 06/27/20 05:57 Olanzapine (ZyPREXA) 5 mg PRN Q2HR PRN PO PSYCHOSIS 06/23/20 16:00 06/24/20 12:36 Quetiapine Fumarate (SEROquel) 25 mg 0900,1300,1700 PO 06/24/20 18:00 06/27/20 17:59 DC 06/27/20 17:40 Quetiapine Fumarate (SEROquel) 25 mg 1300 PO 06/28/20 13:00 Quetiapine Fumarate (SEROquel) 37.5 mg 0900,1700 PO 06/28/20 09:00 I have reviewed the current psychotropics carefully including drug interactions. Risk benefit ratio favors no change other than as noted in my dictated progress note. Diagnosis: Problems: (1) Schizoaffective disorder, bipolar type (2) Impulse control disorder, unspecified (3) Anxiety disorder, unspecified (4) Bipolar disorder, curr episode mixed, severe, with psychotic features CAREN MALIK MD June 27, 2020 21:58
[2020-06-28] MEDS: LEVOTHYROXINE 50 MCG TABLET PO SCH (05:30)
--- NOTE | 2020-06-28 07:13 | PDOC ---
Exam Note: Kwasi Note: This note is a late entry for 06/26/2020 covers elements not covered in my initial note. Subjective: The patient was seen individually in the evening of 06/26/2020 with Lucy GAUTAM, discussed and reviewed the chart. He slept 6-1/4 hours previous night. The patient is going to have neuropsychological testing done next week per Dr. Ho for possible level 2 assessment. He is resistive to going to a level 2 facility. He is quite verbal as I met with him but irritable about placement options. I addressed this at length with him. Review of Systems: Ambulation impaired in wheelchair. No CV, , pulmonary, eye, ENT system symptoms on review. Reliability varies. Mental Status Exam: The patient is oriented to himself. Speech coherent. Abstraction fair. Computation impaired. Language function intact. Mood and affect somewhat anxious, at times labile, but improved. No suicidal or homicidal ideation. Laboratory Data: Reviewed. Impression: Schizoaffective disorder, bipolar type mixed with psychotic features. Anxiety disorder unspecified. Impulse control disorder unspecified. Plan: Continue current psychotropics. Assessment: Vital Signs/I&O: Vital Signs Date Time Temp Pulse Resp B/P (MAP) Pulse Ox O2 Delivery O2 Flow Rate FiO2 06/27/20 16:13 97.3 56 18 118/75 (89) 97 Room Air I & O 06/27/20 06/27/20 06/28/20 15:00 23:00 07:00 Intake Total 240 ml 360 ml Balance 240 ml 360 ml Labs: Laboratory Tests Test 06/27/20 07:43 Glucose (Fingerstick) 121 mg/dL (70-99) H Current Medications: Meds: Laboratory Tests Test 06/27/20 07:43 Glucose (Fingerstick) 121 mg/dL Current Medications Medications (Trade) Dose Ordered Sig/Samm Route PRN Reason Start Time Stop Time Status Last Admin Dose Admin Acetaminophen (Tylenol) 650 mg PRN Q4HRS PRN PO pain or fever 06/15/20 11:30 Bisacodyl (Dulcolax Supp) 10 mg PRN DAILY PRN RC 2ND CHOICE CONSTIPATION 06/15/20 11:30 Clonazepam (KlonoPIN) 0.5 mg HS PO 06/15/20 21:00 06/27/20 20:19 Al Hydroxide/Mg Hydroxide (Mylanta Plus Xs) 30 ml Q6HRS PRN PO HEARTBURN/INDIGESTION 06/15/20 11:30 06/15/20 14:34 DC Nystatin (Nystop) 1 shay BID TP 06/15/20 21:00 06/27/20 20:23 Quetiapine Fumarate (SEROquel) 25 mg BID PO 06/15/20 21:00 06/24/20 17:47 DC 06/24/20 06:47 Valproic Acid (Depakene) 500 mg DAILY PO 06/16/20 09:00 06/27/20 08:58 Valproic Acid (Depakene) 750 mg HS PO 06/15/20 21:00 06/27/20 20:19 Vitamin D (Vitamin D3) 500 unit DAILY PO 06/16/20 09:00 06/27/20 08:58 Citalopram Hydrobromide (CeleXA) 40 mg DAILY PO 06/16/20 09:00 06/18/20 11:56 DC 06/18/20 08:41 Magnesium Hydroxide (Milk Of Magnesia) 2,400 mg PRN DAILY PRN PO CONSTIPATION 06/15/20 12:15 06/15/20 14:34 DC Non-Formulary Medication (Menthol (Biofreeze)) 1 shay Q6HRS TP 06/15/20 12:00 06/15/20 12:07 DC Metformin HCl (Glucophage) 1,000 mg BIDWMEALS PO 06/15/20 17:00 06/27/20 17:40 Multi-Ingredient Ointment (Analgesic [place]) 1 shay PRN Q6HRS PRN TP MUSCLE SPASTICITY 06/15/20 12:15 06/15/20 14:34 DC Ketoconazole (Nizoral 2% Shampoo) 1 shay MoTh TP 06/18/20 09:00 06/25/20 08:37 Acetaminophen (Tylenol) 650 mg PRN Q6HRS PRN PO MILD PAIN / TEMP > 100.3'F 06/15/20 12:15 UNV Multi-Ingredient Ointment (Analgesic [place]) 1 shay PRN QID PRN TP MUSCLE PAIN 06/15/20 12:15 Al Hydroxide/Mg Hydroxide (Mylanta Plus Xs) 15 ml PRN AFTMEALHC PRN PO DYSPEPSIA 06/15/20 12:15 Magnesium Hydroxide (Milk Of Magnesia) 2,400 mg PRN QHS PRN PO 1ST CHOICE CONSTIPATION 06/15/20 12:15 Nicotine (Nicoderm Cq 14mg Patch) 1 patch DAILY TD 06/15/20 19:20 Glimepiride (Amaryl) 2 mg BIDWMEALS PO 06/17/20 17:00 06/27/20 17:40 Fluvoxamine Maleate (Luvox) 25 mg DAILY08 PO 06/19/20 08:00 06/21/20 23:50 DC 06/21/20 08:04 Fluvoxamine Maleate (Luvox) 50 mg DAILY08 PO 06/22/20 08:00 06/22/20 18:39 DC 06/22/20 08:47 Amoxicillin (Amoxil) 500 mg [id number] PO 06/18/20 15:15 06/28/20 15:14 06/27/20 20:19 Lactobacillus Rhamnosus (Culturelle) 1 cap BID PO 06/18/20 21:00 06/27/20 20:19 Fluvoxamine Maleate (Luvox) 75 mg DAILY PO 06/25/20 09:00 06/27/20 08:57 Fluvoxamine Maleate (Luvox) 50 mg DAILY PO 06/23/20 09:00 06/24/20 09:01 DC 06/24/20 06:47 Levothyroxine Sodium (Synthroid) 50 mcg DAILY06 PO 06/24/20 06:00 06/28/20 05:30 Olanzapine (ZyPREXA) 5 mg PRN Q2HR PRN PO PSYCHOSIS 06/23/20 16:00 06/24/20 12:36 Quetiapine Fumarate (SEROquel) 25 mg 0900,1300,1700 PO 06/24/20 18:00 06/27/20 17:59 DC 06/27/20 17:40 Quetiapine Fumarate (SEROquel) 25 mg 1300 PO 06/28/20 13:00 Quetiapine Fumarate (SEROquel) 37.5 mg 0900,1700 PO 06/28/20 09:00 I have reviewed the current psychotropics carefully including drug interactions. Risk benefit ratio favors no change other than as noted in my dictated progress note. Diagnosis: Problems: (1) Schizoaffective disorder, bipolar type (2) Impulse control disorder, unspecified (3) Anxiety disorder, unspecified (4) Bipolar disorder, curr episode mixed, severe, with psychotic features CAREN MALIK MD June 28, 2020 07:13
--- NOTE | 2020-06-28 07:59 | PDOC ---
Exam Note: Kwasi Note: This note is a late entry for 06/27/2020 covers elements not covered in my initial note. Subjective: The patient was seen individually in the evening of 06/27/2020 with Keshia GAUTAM, discussed and reviewed the chart. He slept 6 hours previous night. The patient has had increased yelling, irritability, mood lability, using profanities, demanding nursing staff for his cares. He is quite irritable as I met with him, fixated on discharge plans that his brother was supposed to come from [place] and has not informed him. I addressed with him at some length. Review of Systems: Ambulation impaired in wheelchair. No CV, , pulmonary, eye, ENT system symptoms on review. Mental Status Exam: The patient is oriented to himself. he is irritable, anxious, labile, somewhat dismissive at times. Speech coherent. Abstraction fair. Computation impaired. Language function intact. No suicidal or homicidal ideation. Laboratory Data: Reviewed. Impression: Schizoaffective disorder, bipolar type mixed with psychotic features. Anxiety disorder unspecified. Impulse control disorder unspecified. Plan: Continue current psychotropics. The patient is currently on Seroquel 25 mg 9 a.m., 1 p.m., 5 p.m. We will increase to 37.5 mg at 9 a.m. and 5 p.m. Continue 25 mg at 1 p.m. Maintain Klonopin, Depakote and Luvox at current dosage. Zyprexa p.r.n. Adjust further as clinically indicated. Assessment: Vital Signs/I&O: Vital Signs Date Time Temp Pulse Resp B/P (MAP) Pulse Ox O2 Delivery O2 Flow Rate FiO2 06/27/20 16:13 97.3 56 18 118/75 (89) 97 Room Air I & O 06/27/20 06/27/20 06/28/20 15:00 23:00 07:00 Intake Total 240 ml 360 ml Balance 240 ml 360 ml Labs: Laboratory Tests Test 06/28/20 07:26 Glucose (Fingerstick) 143 mg/dL (70-99) H Current Medications: Meds: Laboratory Tests Test 06/28/20 07:26 Glucose (Fingerstick) 143 mg/dL Current Medications Medications (Trade) Dose Ordered Sig/Samm Route PRN Reason Start Time Stop Time Status Last Admin Dose Admin Acetaminophen (Tylenol) 650 mg PRN Q4HRS PRN PO pain or fever 06/15/20 11:30 Bisacodyl (Dulcolax Supp) 10 mg PRN DAILY PRN RC 2ND CHOICE CONSTIPATION 06/15/20 11:30 Clonazepam (KlonoPIN) 0.5 mg HS PO 06/15/20 21:00 06/27/20 20:19 Al Hydroxide/Mg Hydroxide (Mylanta Plus Xs) 30 ml Q6HRS PRN PO HEARTBURN/INDIGESTION 06/15/20 11:30 06/15/20 14:34 DC Nystatin (Nystop) 1 shay BID TP 06/15/20 21:00 06/27/20 20:23 Quetiapine Fumarate (SEROquel) 25 mg BID PO 06/15/20 21:00 06/24/20 17:47 DC 06/24/20 06:47 Valproic Acid (Depakene) 500 mg DAILY PO 06/16/20 09:00 06/27/20 08:58 Valproic Acid (Depakene) 750 mg HS PO 06/15/20 21:00 06/27/20 20:19 Vitamin D (Vitamin D3) 500 unit DAILY PO 06/16/20 09:00 06/27/20 08:58 Citalopram Hydrobromide (CeleXA) 40 mg DAILY PO 06/16/20 09:00 06/18/20 11:56 DC 06/18/20 08:41 Magnesium Hydroxide (Milk Of Magnesia) 2,400 mg PRN DAILY PRN PO CONSTIPATION 06/15/20 12:15 06/15/20 14:34 DC Non-Formulary Medication (Menthol (Biofreeze)) 1 shay Q6HRS TP 06/15/20 12:00 06/15/20 12:07 DC Metformin HCl (Glucophage) 1,000 mg BIDWMEALS PO 06/15/20 17:00 06/27/20 17:40 Multi-Ingredient Ointment (Analgesic [place]) 1 shay PRN Q6HRS PRN TP MUSCLE SPASTICITY 06/15/20 12:15 06/15/20 14:34 DC Ketoconazole (Nizoral 2% Shampoo) 1 shay MoTh TP 06/18/20 09:00 06/25/20 08:37 Acetaminophen (Tylenol) 650 mg PRN Q6HRS PRN PO MILD PAIN / TEMP > 100.3'F 06/15/20 12:15 UNV Multi-Ingredient Ointment (Analgesic [place]) 1 shay PRN QID PRN TP MUSCLE PAIN 06/15/20 12:15 Al Hydroxide/Mg Hydroxide (Mylanta Plus Xs) 15 ml PRN AFTMEALHC PRN PO DYSPEPSIA 06/15/20 12:15 Magnesium Hydroxide (Milk Of Magnesia) 2,400 mg PRN QHS PRN PO 1ST CHOICE CONSTIPATION 06/15/20 12:15 Nicotine (Nicoderm Cq 14mg Patch) 1 patch DAILY TD 06/15/20 19:20 Glimepiride (Amaryl) 2 mg BIDWMEALS PO 06/17/20 17:00 06/27/20 17:40 Fluvoxamine Maleate (Luvox) 25 mg DAILY08 PO 06/19/20 08:00 06/21/20 23:50 DC 06/21/20 08:04 Fluvoxamine Maleate (Luvox) 50 mg DAILY08 PO 06/22/20 08:00 06/22/20 18:39 DC 06/22/20 08:47 Amoxicillin (Amoxil) 500 mg [id number] PO 06/18/20 15:15 06/28/20 15:14 06/27/20 20:19 Lactobacillus Rhamnosus (Culturelle) 1 cap BID PO 06/18/20 21:00 06/27/20 20:19 Fluvoxamine Maleate (Luvox) 75 mg DAILY PO 06/25/20 09:00 06/27/20 08:57 Fluvoxamine Maleate (Luvox) 50 mg DAILY PO 06/23/20 09:00 06/24/20 09:01 DC 06/24/20 06:47 Levothyroxine Sodium (Synthroid) 50 mcg DAILY06 PO 06/24/20 06:00 06/28/20 05:30 Olanzapine (ZyPREXA) 5 mg PRN Q2HR PRN PO PSYCHOSIS 06/23/20 16:00 06/24/20 12:36 Quetiapine Fumarate (SEROquel) 25 mg 0900,1300,1700 PO 06/24/20 18:00 06/27/20 17:59 DC 06/27/20 17:40 Quetiapine Fumarate (SEROquel) 25 mg 1300 PO 06/28/20 13:00 Quetiapine Fumarate (SEROquel) 37.5 mg 0900,1700 PO 06/28/20 09:00 I have reviewed the current psychotropics carefully including drug interactions. Risk benefit ratio favors no change other than as noted in my dictated progress note. Diagnosis: Problems: (1) Schizoaffective disorder, bipolar type (2) Impulse control disorder, unspecified (3) Anxiety disorder, unspecified (4) Bipolar disorder, curr episode mixed, severe, with psychotic features CAREN MALIK MD June 28, 2020 07:59
[2020-06-28] MEDS: KETOCONAZOLE 2% SHAMPOO 120ML BOTTLE. TP SCH (09:00)
[2020-06-28] MEDS: NICOTINE 14MG PATCH. TD SCH ×2 (09:00→09:18)
[2020-06-28] MEDS: metFORMIN 500 MG TABLET PO SCH ×2 (09:15→17:26)
[2020-06-28] MEDS: LACTOBACILLUS RHAMNOSUS GG 1 CAPSULE. PO SCH ×2 (09:16→20:07)
[2020-06-28] MEDS: AMOXICILLIN 250 MG CAPSULE PO SCH ×2 (09:16→13:05)
[2020-06-28] MEDS: GLIMEPIRIDE 2 MG TABLET PO SCH ×2 (09:16→17:26)
[2020-06-28] MEDS: QUEtiapine 25 MG TABLET. PO SCH ×2 (09:17→17:26)
[2020-06-28] MEDS: CHOLECALCIFEROL (VITAMIN D3) 1,000 UNIT TABLET PO SCH (09:17)
[2020-06-28] MEDS: VALPROIC ACID 250 MG CAPSULE. PO SCH ×2 (09:17→20:07)
[2020-06-28] MEDS: NYSTATIN TOPICAL POWDER 15GM BOTTLE. TP SCH ×2 (09:18→20:08)
[2020-06-28] MEDS ORDERED: QUEtiapine 25 MG TABLET. PO SCH (13:00)
[2020-06-28 15:56] VITALS: BP 129/82
[2020-06-28] MEDS: OLANZapine 5 MG TABLET PO PRN (20:07)
[2020-06-28] MEDS: clonazePAM 0.5 MG TABLET PO SCH (20:07)
[2020-06-29] MEDS: LEVOTHYROXINE 50 MCG TABLET PO SCH (05:53)
[2020-06-29 06:04] VITALS: BP 101/59
--- NOTE | 2020-06-29 08:06 | PDOC ---
Exam Note: Kwasi Note: This note is a late entry for 06/28/2020 covers elements not covered in my initial note. Subjective: The patient was seen individually in the evening of 06/28/2020 with Luz GAUTAM, discussed and reviewed the chart. He slept 7-1/4 hours previous night. The patient has been yelling, quite impatient, rude, and compliant with medications. Review of Systems: Ambulation impaired in wheelchair. No CV, , pulmonary, eye, ENT system symptoms on review. Reliability varies. Mental Status Exam: The patient is oriented to himself and situation. Speech coherent, rapid at times, quite irritable, dismissive at times. Attention span short. Language function intact. Mood and affect labile. No suicidal or homicidal ideation. Laboratory Data: Reviewed. Impression: Schizoaffective disorder, bipolar type mixed with psychotic features. Anxiety disorder unspecified. Impulse control disorder unspecified. Plan: Continue current psychotropics. Change Seroquel 37.5 mg b.i.d. to 50 mg b.i.d. and increase the 1300 dosage from 25 mg to 50 mg as well. Assessment: Vital Signs/I&O: Vital Signs Date Time Temp Pulse Resp B/P (MAP) Pulse Ox O2 Delivery O2 Flow Rate FiO2 06/29/20 06:04 96.3 54 16 101/59 (73) 95 06/28/20 15:56 Room Air I & O 06/28/20 06/28/20 06/29/20 15:00 23:00 07:00 Intake Total 580 ml 360 ml Balance 580 ml 360 ml Labs: Laboratory Tests Test 06/29/20 07:20 Glucose (Fingerstick) 214 mg/dL (70-99) H Current Medications: Meds: Laboratory Tests Test 06/29/20 07:20 Glucose (Fingerstick) 214 mg/dL Current Medications Medications (Trade) Dose Ordered Sig/Samm Route PRN Reason Start Time Stop Time Status Last Admin Dose Admin Acetaminophen (Tylenol) 650 mg PRN Q4HRS PRN PO pain or fever 06/15/20 11:30 Bisacodyl (Dulcolax Supp) 10 mg PRN DAILY PRN RC 2ND CHOICE CONSTIPATION 06/15/20 11:30 Clonazepam (KlonoPIN) 0.5 mg HS PO 06/15/20 21:00 06/28/20 20:07 Al Hydroxide/Mg Hydroxide (Mylanta Plus Xs) 30 ml Q6HRS PRN PO HEARTBURN/INDIGESTION 06/15/20 11:30 06/15/20 14:34 DC Nystatin (Nystop) 1 shay BID TP 06/15/20 21:00 06/28/20 20:08 Quetiapine Fumarate (SEROquel) 25 mg BID PO 06/15/20 21:00 06/24/20 17:47 DC 06/24/20 06:47 Valproic Acid (Depakene) 500 mg DAILY PO 06/16/20 09:00 06/28/20 09:17 Valproic Acid (Depakene) 750 mg HS PO 06/15/20 21:00 06/28/20 20:07 Vitamin D (Vitamin D3) 500 unit DAILY PO 06/16/20 09:00 06/28/20 09:17 Citalopram Hydrobromide (CeleXA) 40 mg DAILY PO 06/16/20 09:00 06/18/20 11:56 DC 06/18/20 08:41 Magnesium Hydroxide (Milk Of Magnesia) 2,400 mg PRN DAILY PRN PO CONSTIPATION 06/15/20 12:15 06/15/20 14:34 DC Non-Formulary Medication (Menthol (Biofreeze)) 1 shay Q6HRS TP 06/15/20 12:00 06/15/20 12:07 DC Metformin HCl (Glucophage) 1,000 mg BIDWMEALS PO 06/15/20 17:00 06/28/20 17:26 Multi-Ingredient Ointment (Analgesic [place]) 1 shay PRN Q6HRS PRN TP MUSCLE SPASTICITY 06/15/20 12:15 06/15/20 14:34 DC Ketoconazole (Nizoral 2% Shampoo) 1 shay MoTh TP 06/18/20 09:00 06/25/20 08:37 Acetaminophen (Tylenol) 650 mg PRN Q6HRS PRN PO MILD PAIN / TEMP > 100.3'F 06/15/20 12:15 UNV Multi-Ingredient Ointment (Analgesic [place]) 1 shay PRN QID PRN TP MUSCLE PAIN 06/15/20 12:15 Al Hydroxide/Mg Hydroxide (Mylanta Plus Xs) 15 ml PRN AFTMEALHC PRN PO DYSPEPSIA 06/15/20 12:15 Magnesium Hydroxide (Milk Of Magnesia) 2,400 mg PRN QHS PRN PO 1ST CHOICE CONSTIPATION 06/15/20 12:15 Nicotine (Nicoderm Cq 14mg Patch) 1 patch DAILY TD 06/15/20 19:20 Glimepiride (Amaryl) 2 mg BIDWMEALS PO 06/17/20 17:00 06/28/20 17:26 Fluvoxamine Maleate (Luvox) 25 mg DAILY08 PO 06/19/20 08:00 06/21/20 23:50 DC 06/21/20 08:04 Fluvoxamine Maleate (Luvox) 50 mg DAILY08 PO 06/22/20 08:00 06/22/20 18:39 DC 06/22/20 08:47 Amoxicillin (Amoxil) 500 mg TSS175 PO 06/18/20 15:15 06/28/20 15:14 DC 06/28/20 13:05 Lactobacillus Rhamnosus (Culturelle) 1 cap BID PO 06/18/20 21:00 06/28/20 20:07 Fluvoxamine Maleate (Luvox) 75 mg DAILY PO 06/25/20 09:00 06/28/20 09:16 Fluvoxamine Maleate (Luvox) 50 mg DAILY PO 06/23/20 09:00 06/24/20 09:01 DC 06/24/20 06:47 Levothyroxine Sodium (Synthroid) 50 mcg DAILY06 PO 06/24/20 06:00 06/29/20 05:53 Olanzapine (ZyPREXA) 5 mg PRN Q2HR PRN PO PSYCHOSIS 06/23/20 16:00 06/28/20 20:07 Quetiapine Fumarate (SEROquel) 25 mg 0900,1300,1700 PO 06/24/20 18:00 06/27/20 17:59 DC 06/27/20 17:40 Quetiapine Fumarate (SEROquel) 25 mg 1300 PO 06/28/20 13:00 06/29/20 00:06 DC 06/28/20 13:05 Quetiapine Fumarate (SEROquel) 37.5 mg 0900,1700 PO 06/28/20 09:00 06/29/20 00:06 DC 06/28/20 17:26 Quetiapine Fumarate (SEROquel) 50 mg TID@0900,1300,1700 PO 06/29/20 09:00 Current Medications Medications (Trade) Dose Ordered Sig/Samm Route PRN Reason Start Time Stop Time Status Last Admin Dose Admin Quetiapine Fumarate (SEROquel) 25 mg 1300 PO 06/28/20 13:00 06/29/20 00:06 DC 06/28/20 13:05 Quetiapine Fumarate (SEROquel) 37.5 mg 0900,1700 PO 06/28/20 09:00 06/29/20 00:06 DC 06/28/20 17:26 I have reviewed the current psychotropics carefully including drug interactions. Risk benefit ratio favors no change other than as noted in my dictated progress note. Diagnosis: Problems: (1) Schizoaffective disorder, bipolar type (2) Impulse control disorder, unspecified (3) Anxiety disorder, unspecified (4) Bipolar disorder, curr episode mixed, severe, with psychotic features CAREN MALIK MD June 29, 2020 08:06
[2020-06-29] MEDS: NICOTINE 14MG PATCH. TD SCH (09:00)
[2020-06-29] MEDS: NYSTATIN TOPICAL POWDER 15GM BOTTLE. TP SCH ×2 (09:30→19:52)
[2020-06-29] MEDS: QUEtiapine 25 MG TABLET. PO SCH ×3 (09:32→17:19)
[2020-06-29] MEDS: metFORMIN 500 MG TABLET PO SCH ×2 (09:32→17:19)
[2020-06-29] MEDS: OLANZapine 5 MG TABLET PO PRN ×2 (09:32→13:07)
[2020-06-29] MEDS: CHOLECALCIFEROL (VITAMIN D3) 1,000 UNIT TABLET PO SCH (09:32)
[2020-06-29] MEDS: VALPROIC ACID 250 MG CAPSULE. PO SCH ×2 (09:32→19:52)
[2020-06-29] MEDS: GLIMEPIRIDE 2 MG TABLET PO SCH ×2 (09:33→17:19)
[2020-06-29] MEDS: LACTOBACILLUS RHAMNOSUS GG 1 CAPSULE. PO SCH ×2 (09:33→19:52)
[2020-06-29 15:58] VITALS: BP 129/84
[2020-06-29] MEDS: clonazePAM 0.5 MG TABLET PO SCH (19:52)
--- NOTE | 2020-06-29 21:56 | PDOC ---
Exam Note: Kwasi Note: Please also refer to the separate dictated note~for this date of service dictated separately.~Patient seen individually. Discussed the patient with Nursing staff reviewed the chart.~Reviewed interim history and current functioning. Reviewed vital signs,~Labs/ Radiology~and current medications noted below. Continue current treatment with the changes noted in the dictated addendum note Assessment: Vital Signs/I&O: Vital Signs Date Time Temp Pulse Resp B/P (MAP) Pulse Ox O2 Delivery O2 Flow Rate FiO2 06/29/20 15:58 98.0 67 18 129/84 (99) 95 06/28/20 15:56 Room Air I & O 06/28/20 06/28/20 06/29/20 15:00 23:00 07:00 Intake Total 580 ml 360 ml Balance 580 ml 360 ml Labs: Laboratory Tests Test 06/29/20 07:20 Glucose (Fingerstick) 214 mg/dL (70-99) H Current Medications: Meds: Laboratory Tests Test 06/29/20 07:20 Glucose (Fingerstick) 214 mg/dL Current Medications Medications (Trade) Dose Ordered Sig/Samm Route PRN Reason Start Time Stop Time Status Last Admin Dose Admin Acetaminophen (Tylenol) 650 mg PRN Q4HRS PRN PO pain or fever 06/15/20 11:30 Bisacodyl (Dulcolax Supp) 10 mg PRN DAILY PRN RC 2ND CHOICE CONSTIPATION 06/15/20 11:30 Clonazepam (KlonoPIN) 0.5 mg HS PO 06/15/20 21:00 06/29/20 19:52 Al Hydroxide/Mg Hydroxide (Mylanta Plus Xs) 30 ml Q6HRS PRN PO HEARTBURN/INDIGESTION 06/15/20 11:30 06/15/20 14:34 DC Nystatin (Nystop) 1 shay BID TP 06/15/20 21:00 06/29/20 19:52 Quetiapine Fumarate (SEROquel) 25 mg BID PO 06/15/20 21:00 06/24/20 17:47 DC 06/24/20 06:47 Valproic Acid (Depakene) 500 mg DAILY PO 06/16/20 09:00 06/29/20 09:32 Valproic Acid (Depakene) 750 mg HS PO 06/15/20 21:00 06/29/20 19:52 Vitamin D (Vitamin D3) 500 unit DAILY PO 06/16/20 09:00 06/29/20 09:32 Citalopram Hydrobromide (CeleXA) 40 mg DAILY PO 06/16/20 09:00 06/18/20 11:56 DC 06/18/20 08:41 Magnesium Hydroxide (Milk Of Magnesia) 2,400 mg PRN DAILY PRN PO CONSTIPATION 06/15/20 12:15 06/15/20 14:34 DC Non-Formulary Medication (Menthol (Biofreeze)) 1 shay Q6HRS TP 06/15/20 12:00 06/15/20 12:07 DC Metformin HCl (Glucophage) 1,000 mg BIDWMEALS PO 06/15/20 17:00 06/29/20 17:19 Multi-Ingredient Ointment (Analgesic [place]) 1 shay PRN Q6HRS PRN TP MUSCLE SPASTICITY 06/15/20 12:15 06/15/20 14:34 DC Ketoconazole (Nizoral 2% Shampoo) 1 shay MoTh TP 06/18/20 09:00 06/25/20 08:37 Acetaminophen (Tylenol) 650 mg PRN Q6HRS PRN PO MILD PAIN / TEMP > 100.3'F 06/15/20 12:15 UNV Multi-Ingredient Ointment (Analgesic [place]) 1 shay PRN QID PRN TP MUSCLE PAIN 06/15/20 12:15 Al Hydroxide/Mg Hydroxide (Mylanta Plus Xs) 15 ml PRN AFTMEALHC PRN PO DYSPEPSIA 06/15/20 12:15 Magnesium Hydroxide (Milk Of Magnesia) 2,400 mg PRN QHS PRN PO 1ST CHOICE CONSTIPATION 06/15/20 12:15 Nicotine (Nicoderm Cq 14mg Patch) 1 patch DAILY TD 06/15/20 19:20 Glimepiride (Amaryl) 2 mg BIDWMEALS PO 06/17/20 17:00 06/29/20 17:19 Fluvoxamine Maleate (Luvox) 25 mg DAILY08 PO 06/19/20 08:00 06/21/20 23:50 DC 06/21/20 08:04 Fluvoxamine Maleate (Luvox) 50 mg DAILY08 PO 06/22/20 08:00 06/22/20 18:39 DC 06/22/20 08:47 Amoxicillin (Amoxil) 500 mg [id number] PO 06/18/20 15:15 06/28/20 15:14 DC 06/28/20 13:05 Lactobacillus Rhamnosus (Culturelle) 1 cap BID PO 06/18/20 21:00 06/29/20 19:52 Fluvoxamine Maleate (Luvox) 75 mg DAILY PO 06/25/20 09:00 06/29/20 09:32 Fluvoxamine Maleate (Luvox) 50 mg DAILY PO 06/23/20 09:00 06/24/20 09:01 DC 06/24/20 06:47 Levothyroxine Sodium (Synthroid) 50 mcg DAILY06 PO 06/24/20 06:00 06/29/20 05:53 Olanzapine (ZyPREXA) 5 mg PRN Q2HR PRN PO PSYCHOSIS 06/23/20 16:00 06/29/20 13:07 Quetiapine Fumarate (SEROquel) 25 mg 0900,1300,1700 PO 06/24/20 18:00 06/27/20 17:59 DC 06/27/20 17:40 Quetiapine Fumarate (SEROquel) 25 mg 1300 PO 06/28/20 13:00 06/29/20 00:06 DC 06/28/20 13:05 Quetiapine Fumarate (SEROquel) 37.5 mg 0900,1700 PO 06/28/20 09:00 06/29/20 00:06 DC 06/28/20 17:26 Quetiapine Fumarate (SEROquel) 50 mg TID@0900,1300,1700 PO 06/29/20 09:00 06/29/20 17:19 Current Medications Medications (Trade) Dose Ordered Sig/Samm Route PRN Reason Start Time Stop Time Status Last Admin Dose Admin Quetiapine Fumarate (SEROquel) 50 mg TID@0900,1300,1700 PO 06/29/20 09:00 06/29/20 17:19 I have reviewed the current psychotropics carefully including drug interactions. Risk benefit ratio favors no change other than as noted in my dictated progress note. Diagnosis: Problems: (1) Schizoaffective disorder, bipolar type (2) Impulse control disorder, unspecified (3) Anxiety disorder, unspecified (4) Bipolar disorder, curr episode mixed, severe, with psychotic features CAREN MALIK MD June 29, 2020 21:56
[2020-06-30 06:08] VITALS: BP 103/60
[2020-06-30] MEDS: LEVOTHYROXINE 50 MCG TABLET PO SCH (06:20)
[2020-06-30] MEDS: NYSTATIN TOPICAL POWDER 15GM BOTTLE. TP SCH ×2 (07:55→20:11)
[2020-06-30] MEDS: LACTOBACILLUS RHAMNOSUS GG 1 CAPSULE. PO SCH ×2 (08:24→20:11)
[2020-06-30] MEDS: QUEtiapine 25 MG TABLET. PO SCH ×3 (08:24→17:43)
[2020-06-30] MEDS: VALPROIC ACID 250 MG CAPSULE. PO SCH ×2 (08:24→20:11)
[2020-06-30] MEDS: metFORMIN 500 MG TABLET PO SCH ×2 (08:24→17:43)
[2020-06-30] MEDS: GLIMEPIRIDE 2 MG TABLET PO SCH ×2 (08:24→17:44)
[2020-06-30] MEDS: CHOLECALCIFEROL (VITAMIN D3) 1,000 UNIT TABLET PO SCH (08:24)
[2020-06-30] MEDS: NICOTINE 14MG PATCH. TD SCH (08:25)
[2020-06-30 16:08] VITALS: BP 121/87
[2020-06-30] MEDS: clonazePAM 0.5 MG TABLET PO SCH (20:11)
--- NOTE | 2020-07-01 02:35 | PN ---
DATE: 06/30/2020 SUBJECTIVE: The patient was seen today, met with the staff, chart was reviewed and also covering for Dr. Belle. Staff reports no falls, currently on wheelchair, compliant with medications. He continues to show mood swings, occasional outbursts of anger including yelling. OBSERVATION: Vital signs are temperature 98.1, blood pressure 103/60, pulse 53, respirations 18, O2 sat 93%. Slept about 7 hours last night. The patient's appetite improved. LABORATORY DATA: The patient's lab reviewed. Depakote level was 91. CURRENT MEDICATIONS: Include Seroquel 50 mg 3 times a day, Luvox 75 mg daily, olanzapine 5 mg every 2 hours p.r.n., Depakote 500 mg daily and 750 mg at night, clonazepam 0.5 mg at night. He is not having any side effects to medications. ASSESSMENT: 1. Schizoaffective disorder, bipolar type, mixed with psychotic features. 2. Generalized anxiety disorder. PLAN: To continue with the current treatment plan. LENGTH OF STAY: 7-10 days. SONG/IMANI/JOZEF DR: SONG/christine TID: [id number] [facility]
[2020-07-01] MEDS: LEVOTHYROXINE 50 MCG TABLET PO SCH ×2 (05:58→06:00)
[2020-07-01 06:18] VITALS: BP 129/83
[2020-07-01] MEDS: NYSTATIN TOPICAL POWDER 15GM BOTTLE. TP SCH ×2 (07:22→20:40)
[2020-07-01] MEDS: LACTOBACILLUS RHAMNOSUS GG 1 CAPSULE. PO SCH ×2 (08:03→20:40)
[2020-07-01] MEDS: VALPROIC ACID 250 MG CAPSULE. PO SCH ×2 (08:03→20:40)
[2020-07-01] MEDS: GLIMEPIRIDE 2 MG TABLET PO SCH ×2 (08:03→17:22)
[2020-07-01] MEDS: metFORMIN 500 MG TABLET PO SCH ×2 (08:03→17:22)
[2020-07-01] MEDS: NICOTINE 14MG PATCH. TD SCH (08:03)
[2020-07-01] MEDS: CHOLECALCIFEROL (VITAMIN D3) 1,000 UNIT TABLET PO SCH (08:04)
[2020-07-01] MEDS: QUEtiapine 25 MG TABLET. PO SCH ×3 (08:04→17:22)
[2020-07-01 10:50] LABS: BASO % 0 % (0-3); EOS # 0.1 x10^3/uL (0.0-0.7); EOS % 1 % (0-3); HEMATOCRIT 42.4 % (39.0-53.0); HEMOGLOBIN 14.6 g/dL (13.0-17.5); LYMPH # 1.7 x10^3/uL (1.0-4.8); LYMPH % 24 % (24-48); MEAN CORPUSCULAR HEMOGLOBIN 36 pg (25-35); MEAN CORPUSCULAR HGB CONC 34 g/dL (31-37); MEAN CORPUSCULAR VOLUME 104 fL (79-100); MONO # 0.9 x10^3/uL (0.0-1.1); MONO % 13 % (0-9); NEUT # 4.3 x10^3uL (1.8-7.7); NEUT % 62 % (31-73); PLATELET COUNT 200 x10^3/uL (140-400); RED BLOOD COUNT 4.07 x10^6/uL (4.30-5.70); RED CELL DISTRIBUTION WIDTH 14.9 % (11.5-14.5); WHITE BLOOD COUNT 6.9 x10^3/uL (4.0-11.0)
[2020-07-01 10:58] LABS: ALBUMIN 2.7 g/dL (3.4-5.0); ALBUMIN/GLOBULIN RATIO 0.6 (1.0-1.7); CREATININE 0.8 mg/dL (0.7-1.3); GFR 99.3; POTASSIUM 4.4 mmol/L (3.5-5.1); TOTAL BILIRUBIN 0.2 mg/dL (0.2-1.0); TOTAL PROTEIN 7.5 g/dL (6.4-8.2)
[2020-07-01 16:18] VITALS: BP 116/80
[2020-07-01] MEDS: clonazePAM 0.5 MG TABLET PO SCH (20:40)
[2020-07-02] MEDS: LEVOTHYROXINE 50 MCG TABLET PO SCH (05:56)
--- NOTE | 2020-07-02 06:03 | PN ---
DATE: 07/01/2020 SUBJECTIVE: The patient was seen today, met with the staff and chart reviewed. The patient continues to exhibit mood swings, irritability, demanding and also yelling at times. OBSERVATION: VITAL SIGNS: Temperature 96.9, blood pressure 129/83, pulse 99, respirations 20, O2 sat 100%. Slept about 3 hours last night. GENERAL: The patient's appetite is fair. CURRENT MEDICATIONS: Include Seroquel 50 mg 3 times a day, Luvox 75 mg daily, olanzapine 5 mg every 2 hours p.r.n., Depakote 500 mg daily and 750 mg at night. He is also on clonazepam 0.5 mg at night. He denies of any side effects. ASSESSMENT: 1. Schizoaffective disorder, bipolar type, mixed with psychotic features. 2. Generalized anxiety disorder. PLAN: To continue with the current treatment plan. LENGTH OF STAY: 7 to 10 days. The patient has planned to return to [facility] ____ level 2 placement. SONG/VIKTOR/KVNG DR: Christopher TID: [id number] MTDHerlinda
[2020-07-02 06:37] VITALS: BP 122/74
[2020-07-02] MEDS: NICOTINE 14MG PATCH. TD SCH (09:00)
[2020-07-02] MEDS: KETOCONAZOLE 2% SHAMPOO 120ML BOTTLE. TP SCH (09:00)
[2020-07-02] MEDS: NYSTATIN TOPICAL POWDER 15GM BOTTLE. TP SCH ×2 (09:00→21:06)
[2020-07-02] MEDS: CHOLECALCIFEROL (VITAMIN D3) 1,000 UNIT TABLET PO SCH (09:20)
[2020-07-02] MEDS: metFORMIN 500 MG TABLET PO SCH ×2 (09:20→17:26)
[2020-07-02] MEDS: LACTOBACILLUS RHAMNOSUS GG 1 CAPSULE. PO SCH ×2 (09:20→21:06)
[2020-07-02] MEDS: VALPROIC ACID 250 MG CAPSULE. PO SCH ×2 (09:20→21:06)
[2020-07-02] MEDS: GLIMEPIRIDE 2 MG TABLET PO SCH ×2 (09:20→17:26)
[2020-07-02] MEDS: QUEtiapine 25 MG TABLET. PO SCH ×3 (09:20→17:26)
--- NOTE | 2020-07-02 10:13 | RAD ---
STUDY: US DPLX VENOUS EXTREMITY LOWER LT INDICATION: Left lower extremity swelling. DVT. TECHNIQUE: Color-flow and pulsed wave duplex ultrasound with compression of venous structures of the left lower extremity. COMPARISON: 11/08/2018 FINDINGS: Duplex ultrasound with compression of the deep venous structures of the left lower extremity from the common femoral vein through the popliteal vein is negative for DVT. The calf veins were poorly evaluated due to subcutaneous edema. IMPRESSION: No left lower extremity deep venous thrombosis from the common femoral vein to the popliteal vein. Ragini cook assessment of the calf veins due to subcutaneous edema below the knee. Electronically signed by: PRABHA CASTELLON MD (07/02/2020 10:11 AM) [id number]
--- NOTE | 2020-07-02 12:40 | TX PLAN ---
JADONSANCHOA 07/02/20 1240: Interdisciplinary Tx Plan Admission Information Jun 15, 2020 at 10:35 Legal Status (on Admission): Voluntary DPOA/Guardian Name: Self Sign Other Contact Name: Jl COHEN at [facility] Other Contact Verified Code Status: Full Code Allergies: Coded Allergies: Influenza Virus Vaccines (Verified Allergy, Unknown, Anaphylaxis, 06/15/20) egg (Verified Allergy, Unknown, 12/21/19) Estimated Length of Stay: 14 Diagnoses Primary Diagnosis: Schizoaffective d/o bipolar type mixed with psychotic features; anxiety d/o unspecified; impulse control d/o Reasons for Admission: Aggressive, Relation/conflict, Agitated, Depressed, Angry, Poor impulse control Problem in Patient's Words: Per Pavan, "I need to get my blood checked for my medications. There were some stress factors with people there (at [facility]) making me mad and blow up." Problems Active Problems: verbally agressive, yelling at peers causing them to feel demeaned, agitated depressed anxious flipping staff off and telling them "fuck you." Inactive Problems: Adequate sleep Medication compliant Pt Strengths/Limitations Ability for [place]: Poor Cognitive Functioning/Ability: Fair Communication Skills/Ability: Fair Financial Resources: Fair Insight/Judgement: Poor Intellectual Ability: Fair Physical Health: Fair Social Skills: Fair Stability in Family: Poor Verbal Skills: Fair Discharge Criteria Discharge Criteria: Adequate arrangements @DC, Improved behavior, Improved mood/thought Preliminary Discharge Plan Preliminary DC Plan: Care Home Other Arrangements: [facility] vs. [facility] Special Precautions Special Precautions: Agitation/Assault Fall Risk: High Initial D/C Plan [facility] vs. [facility] Identified Discharge Needs: F/U with PCP, Psychiatrist, arrange for counseling if available. Currently Utilized Resources Currently Utilized Resources/P: PCP Out patient psychiatry 24 hour care at [facility] Referrals Community Resources: Counseling if available Identified Problems/Hx/Goals Objectives/Short-Term Goals Short Term Goals: Control abnormal behavior, Dec. Aggression, Dec. Anxiety/Panic, Dec. Outbursts, Dec. Symp. Depression, Improved Social Skills, Medication Stabilization, Monitor Med Effects, Promote Coping Skill Short Term Goals in Patient's: Per Pavan, "Get my medicines balanced out, I have to at least once a year." Interventions/Frequency Staff Interventions/Frequency&: Nursing to provide routine safety checks, medication administration, and adl support. Psychiatrist to see three times week. SW to visit twice weekly. Recreation and SW groups as Pavan will join. History Vocational History: Pavan is on disability. Social: Pavan enjoys watching television, states he likes his privacy. Education: Pavan graduated high school. Community Follow-up PCP Out pt. psychiatry and counseling, if available Treatment Plan Explained Patient/It Engineer had this treatment plan explained to him/her as indicated by the signature below and has been given the opportunity to ask questions and make suggestions: Date: Patient/It Engineer Signature: Status Update Update WEEKLY NOTE/UPDATE: Pavan is averaging 80% of meal intakes and 5.5 hours of sleep at night. His mood is labile, irritable, impatient, and demanding of staff. He curses throughout conversation and name calls others. He attended five group activities in the past week and does enjoy the [place] area. Pavan will have cognitive testing completed on 07/05/20. His brother, Elijah, will be in town this week and has scheduled two visits with Pavan. VICKI will contact area Level II facilities this week to determine bed availability and will update VICKI Phillips, at [facility] accordingly. CARLOS DEE MD 07/07/20 1623: Interdisciplinary Tx Plan Admission Information Allergies: Coded Allergies: Influenza Virus Vaccines (Verified Allergy, Unknown, Anaphylaxis, 06/15/20) egg (Verified Allergy, Unknown, 12/21/19) HERMELINDA DIOP July 02, 2020 12:40 CARLOS DEE MD July 07, 2020 16:23
[2020-07-02 16:13] VITALS: BP 119/75
--- NOTE | 2020-07-02 16:52 | RAD ---
PQRS Compliance Statement: One or more of the following individualized dose reduction techniques were utilized for this examinat ion: 1. Automated exposure control 2. Adjustment of the mA and/or kV according to patient size 3. Use of iterative reconstruction technique CT HEAD WITHOUT CONTRAST History: Reason: Headache and history of obstructive hydrocephalus / Spl. Instructions: / History: Comparison: CT head without contrast May 01, 2018. Procedure: Axial images are obtained of the head from the skull base through the vertex without IV co ntrast. Findings: There is right parietal shunt catheter with tip terminating near midline in the right lateral ventric le. There is left parietal shunt catheter with tip terminating near midline in the right lateral vent ricle. Lateral ventriculomegaly is unchanged from prior study. There is generalized cerebral atrophy. No mass-effect, midline shift, hemorrhage, extra-axial fluid collection, or obvious acute infarction is identified. Basilar cisterns are patent. Bone windows demonstrate no acute calvarial abnormality. The visualized paranasal sinuses are clear. Mastoid air cells are well aerated. IMPRESSION: 1. Bilateral parietal shunt catheters are in stable position. Lateral ventriculomegaly is stable. 2. There is no acute intracranial abnormality. Electronically signed by: Elliott Ramos MD (07/02/2020 4:49 PM) [facility]
[2020-07-02] MEDS: clonazePAM 0.5 MG TABLET PO SCH (21:06)
--- NOTE | 2020-07-03 00:06 | PN ---
DATE: 07/02/2020 SUBJECTIVE: The patient was seen today, met with the staff. Chart was reviewed and also participated in the treatment review meeting. Also covering for Dr. Belle. The patient continues to have some mood swings and angry outbursts. Staff reports that the patient pulled down of the staff, but he had IV shunt in his brain after he had a fall. The patient does not present with any major behavioral problems recently. He has been calm, but tend to be irritable, continues to have mood swings. OBSERVATION: VITAL SIGNS: Temperature 97.9, blood pressure 121/74, pulse 53, respirations 14, O2 sat 95%. GENERAL: Slept about 7 hours last night. The patient's appetite improved. CURRENT MEDICATIONS: Include Seroquel 50 mg three times a day, Luvox 75 mg daily, olanzapine 5 mg every 2 hours p.r.n., Depakote 500 mg daily and 750 mg at night. He is also on clonazepam 0.5 mg at night. He is not having any side effects to medications. ASSESSMENT: 1. Schizoaffective disorder, bipolar type, mixed with psychotic features. 2. Generalized anxiety disorder. PLAN: To continue with the current treatment plan. Plan for him to return to [facility]. LENGTH OF STAY: 7-10 days. SONG/JOSELYN/JOZEF DR: SONG/christine TID: [id number] MTDD
[2020-07-03] MEDS: LEVOTHYROXINE 50 MCG TABLET PO SCH (05:40)
[2020-07-03 06:17] VITALS: BP 95/65
[2020-07-03] MEDS: GLIMEPIRIDE 2 MG TABLET PO SCH ×2 (08:32→17:19)
[2020-07-03] MEDS: metFORMIN 500 MG TABLET PO SCH ×2 (08:32→17:19)
[2020-07-03] MEDS: NYSTATIN TOPICAL POWDER 15GM BOTTLE. TP SCH ×2 (08:32→20:25)
[2020-07-03] MEDS: VALPROIC ACID 250 MG CAPSULE. PO SCH ×2 (08:32→20:26)
[2020-07-03] MEDS: CHOLECALCIFEROL (VITAMIN D3) 1,000 UNIT TABLET PO SCH (08:33)
[2020-07-03] MEDS: QUEtiapine 25 MG TABLET. PO SCH ×3 (08:33→17:19)
[2020-07-03] MEDS: LACTOBACILLUS RHAMNOSUS GG 1 CAPSULE. PO SCH ×2 (08:33→20:26)
[2020-07-03] MEDS: NICOTINE 14MG PATCH. TD SCH (08:33)
[2020-07-03 16:28] VITALS: BP 114/76
[2020-07-03] MEDS: clonazePAM 0.5 MG TABLET PO SCH (20:26)
--- NOTE | 2020-07-04 03:56 | PN ---
DATE: 07/03/2020 SUBJECTIVE: The patient was seen today, met with the staff. Chart reviewed and also covering for Dr. Belle. The patient continues to have mood swings, anger outburst and apparently responding well to p.r.n. medications. The patient also had a CT scan of the head. The patient is not presenting with any major behavior problems. PHYSICAL EXAMINATION: OBSERVATION VITAL SIGNS: Temperature 97.0, blood pressure 114/76, pulse 65, respirations 18, O2 sat 97%. CURRENT MEDICATIONS: Include Seroquel 50 mg 3 times a day, Luvox 75 mg daily, olanzapine 5 mg q. 2 hours p.r.n., Depakote 500 mg daily and 750 mg at night. The patient is also on clonazepam 0.5 mg at night. The patient is not having any side effects. LABORATORY DATA: The patient's labs reviewed and also patient's CT scan of the head showed bilateral parietal shunt catheters are in stable position, lateral ventriculomegaly, otherwise no acute intracranial abnormality. ASSESSMENT: 1. Schizoaffective disorder, bipolar type, mixed with psychotic features. 2. Generalized anxiety disorder. PLAN: To continue with the treatment. The patient is expected to be discharged to [facility]. LENGTH OF STAY: 7 to [address]: Christopher TID: [id number]
[2020-07-04] MEDS: LEVOTHYROXINE 50 MCG TABLET PO SCH (05:18)
[2020-07-04 06:06] VITALS: BP 114/62
[2020-07-04] MEDS: CHOLECALCIFEROL (VITAMIN D3) 1,000 UNIT TABLET PO SCH (08:12)
[2020-07-04] MEDS: metFORMIN 500 MG TABLET PO SCH ×2 (08:12→17:19)
[2020-07-04] MEDS: GLIMEPIRIDE 2 MG TABLET PO SCH ×2 (08:13→17:19)
[2020-07-04] MEDS: LACTOBACILLUS RHAMNOSUS GG 1 CAPSULE. PO SCH ×2 (08:13→20:05)
[2020-07-04] MEDS: VALPROIC ACID 250 MG CAPSULE. PO SCH ×2 (08:13→20:05)
[2020-07-04] MEDS: QUEtiapine 25 MG TABLET. PO SCH ×3 (08:14→17:19)
[2020-07-04] MEDS: NICOTINE 14MG PATCH. TD SCH (09:00)
[2020-07-04] MEDS: NYSTATIN TOPICAL POWDER 15GM BOTTLE. TP SCH ×2 (12:10→20:05)
[2020-07-04 16:32] VITALS: BP 119/78
[2020-07-04] MEDS: clonazePAM 0.5 MG TABLET PO SCH (20:05)
--- NOTE | 2020-07-05 01:52 | PN ---
DATE: 07/04/2020 SUBJECTIVE: The patient was seen today, met with the staff. Chart was reviewed. Covering for Dr. Belle. Staff reports increased behavior problems, being rude, yelling out. The patient upset with his brother and wants to go back with him to [place]. The patient has tendency to get angry easily, also demanding and fluctuating mood. OBSERVATION: VITAL SIGNS: Temperature 97.2, blood pressure 114/62, pulse 61, respirations 18, O2 sat 93%. Slept about 6 hours last night. The patient's appetite is fair. MEDICATIONS: The patient's current medications include Seroquel 50 mg 3 times a day, fluvoxamine 75 mg daily, Depakote 500 mg daily and 750 mg at night and olanzapine 5 mg q. 2 hours p.r.n. for psychosis. The patient is not exhibiting any side effects to medications. ASSESSMENT: 1. Schizoaffective disorder, bipolar type, mixed with psychotic features. 2. Generalized anxiety disorder. PLAN: To continue with the treatment. LENGTH OF STAY: Five to seven days. JESSICA DR: Christopher TID: [id number]
[2020-07-05 05:33] VITALS: BP 100/59
[2020-07-05] MEDS: LEVOTHYROXINE 50 MCG TABLET PO SCH (05:38)
[2020-07-05] MEDS: NYSTATIN TOPICAL POWDER 15GM BOTTLE. TP SCH ×2 (08:12→20:25)
[2020-07-05] MEDS: VALPROIC ACID 250 MG CAPSULE. PO SCH ×2 (08:12→20:19)
[2020-07-05] MEDS: LACTOBACILLUS RHAMNOSUS GG 1 CAPSULE. PO SCH ×2 (08:13→20:19)
[2020-07-05] MEDS: NICOTINE 14MG PATCH. TD SCH (08:13)
[2020-07-05] MEDS: GLIMEPIRIDE 2 MG TABLET PO SCH ×2 (08:13→17:07)
[2020-07-05] MEDS: QUEtiapine 25 MG TABLET. PO SCH ×3 (08:13→17:07)
[2020-07-05] MEDS: CHOLECALCIFEROL (VITAMIN D3) 1,000 UNIT TABLET PO SCH (08:13)
[2020-07-05] MEDS: metFORMIN 500 MG TABLET PO SCH ×2 (08:13→17:07)
[2020-07-05] MEDS: KETOCONAZOLE 2% SHAMPOO 120ML BOTTLE. TP SCH (08:14)
[2020-07-05 16:18] VITALS: BP 114/81
[2020-07-05] MEDS: clonazePAM 0.5 MG TABLET PO SCH (20:19)
--- NOTE | 2020-07-06 04:54 | PN ---
DATE: 07/05/2020 SUBJECTIVE: The patient was seen today, met with the staff. Chart reviewed. I am also covering for Dr. Belle. The patient continues to have some behavior problems, rude, demanding, and to get upset easily. The patient also showing significant mood swings. OBSERVATION: VITAL SIGNS: Temperature 98.4, blood pressure 100/59, pulse 59, respirations 20, O2 sat 97%. Slept about 7 hours last night. The patient's appetite is fair. CURRENT MEDICATIONS: Include Seroquel 50 mg 3 times a day, fluvoxamine 75 mg daily, Depakote 500 mg daily and 750 mg at night and olanzapine 5 mg q.2 hours p.r.n. for psychosis. Patient is not having any side effects to medications. ASSESSMENT: 1. Schizoaffective disorder, bipolar type, mixed with psychotic features. 2. Generalized anxiety disorder. PLAN: To continue treatment. LENGTH OF STAY: Five to seven days. RICA DR: Christopher TID: [id number]
[2020-07-06 05:44] VITALS: BP 123/67
[2020-07-06] MEDS: LEVOTHYROXINE 50 MCG TABLET PO SCH (06:00)
[2020-07-06] MEDS: metFORMIN 500 MG TABLET PO SCH ×2 (08:32→17:00)
[2020-07-06] MEDS: CHOLECALCIFEROL (VITAMIN D3) 1,000 UNIT TABLET PO SCH (08:32)
[2020-07-06] MEDS: VALPROIC ACID 250 MG CAPSULE. PO SCH ×2 (08:32→20:27)
[2020-07-06] MEDS: GLIMEPIRIDE 2 MG TABLET PO SCH ×2 (08:33→17:01)
[2020-07-06] MEDS: QUEtiapine 25 MG TABLET. PO SCH ×3 (08:33→17:01)
[2020-07-06] MEDS: LACTOBACILLUS RHAMNOSUS GG 1 CAPSULE. PO SCH ×2 (08:33→20:27)
[2020-07-06] MEDS: NICOTINE 14MG PATCH. TD SCH (08:38)
[2020-07-06] MEDS: NYSTATIN TOPICAL POWDER 15GM BOTTLE. TP SCH ×2 (08:40→20:34)
[2020-07-06 15:57] VITALS: BP 104/71
[2020-07-06] MEDS: clonazePAM 0.5 MG TABLET PO SCH (20:27)
--- NOTE | 2020-07-07 05:31 | PN ---
DATE: 07/06/2020 SUBJECTIVE: The patient was seen today, met with the staff, chart reviewed and also covering for Dr. Belle. The patient continues to have problems with irritability, angry outbursts with the staff and apparently is angry because he cannot go back to the place that he came from, care and rehab. The patient tends to isolate himself. He is on wheelchair. Patient tends to get angry easily. He continues to have mood swings. OBSERVATION: VITAL SIGNS: Temperature 96.5, blood pressure 123/67, pulse 64, respirations 18, O2 sat 97%. Slept about 7 hours last night. The patient's appetite, normal. CURRENT MEDICATIONS: The patient has no change in his medication. Will continue on the medications including Seroquel, ____, Depakote and olanzapine as p.r.n. Patient is not showing any side effects to medications. LABORATORY DATA: The patient's lab reviewed. ASSESSMENT: 1. Schizoaffective disorder, bipolar type, mixed with psychotic features. 2. Generalized anxiety disorder. PLAN: To continue with the treatment. LENGTH OF STAY: Five to seven days. MARILEE/TORIBIO DR: SONG/christine TID: [id number]
[2020-07-07] MEDS: LEVOTHYROXINE 50 MCG TABLET PO SCH (05:48)
[2020-07-07 05:52] VITALS: BP 104/59
[2020-07-07 07:46] LABS: BASO % 0 % (0-3); EOS # 0.2 x10^3/uL (0.0-0.7); EOS % 2 % (0-3); HEMATOCRIT 40.5 % (39.0-53.0); HEMOGLOBIN 13.8 g/dL (13.0-17.5); LYMPH # 2.6 x10^3/uL (1.0-4.8); LYMPH % 33 % (24-48); MEAN CORPUSCULAR HEMOGLOBIN 35 pg (25-35); MEAN CORPUSCULAR HGB CONC 34 g/dL (31-37); MEAN CORPUSCULAR VOLUME 104 fL (79-100); MONO # 1.1 x10^3/uL (0.0-1.1); MONO % 14 % (0-9); NEUT # 3.9 x10^3uL (1.8-7.7); NEUT % 50 % (31-73); PLATELET COUNT 166 x10^3/uL (140-400); RED BLOOD COUNT 3.89 x10^6/uL (4.30-5.70); RED CELL DISTRIBUTION WIDTH 15.2 % (11.5-14.5); WHITE BLOOD COUNT 7.8 x10^3/uL (4.0-11.0)
[2020-07-07 07:57] LABS: ALBUMIN 2.6 g/dL (3.4-5.0); ALBUMIN/GLOBULIN RATIO 0.6 (1.0-1.7); CALCIUM 8.7 mg/dL (8.5-10.1); CREATININE 0.8 mg/dL (0.7-1.3); GFR 99.3; TOTAL BILIRUBIN 0.2 mg/dL (0.2-1.0)
[2020-07-07] MEDS: GLIMEPIRIDE 2 MG TABLET PO SCH ×2 (08:00→16:34)
[2020-07-07] MEDS: CHOLECALCIFEROL (VITAMIN D3) 1,000 UNIT TABLET PO SCH (08:00)
[2020-07-07] MEDS: metFORMIN 500 MG TABLET PO SCH ×2 (08:00→16:34)
[2020-07-07] MEDS: QUEtiapine 25 MG TABLET. PO SCH ×3 (08:04→16:34)
[2020-07-07] MEDS: VALPROIC ACID 250 MG CAPSULE. PO SCH ×2 (08:04→19:55)
[2020-07-07] MEDS: LACTOBACILLUS RHAMNOSUS GG 1 CAPSULE. PO SCH ×2 (08:05→19:54)
[2020-07-07] MEDS: NYSTATIN TOPICAL POWDER 15GM BOTTLE. TP SCH ×2 (08:05→19:55)
[2020-07-07] MEDS: NICOTINE 14MG PATCH. TD SCH (08:06)
[2020-07-07] MEDS: OLANZapine 5 MG TABLET PO PRN (08:08)
[2020-07-07] MEDS ORDERED: FUROSEMIDE 80 MG TABLET PO STA (11:44)
[2020-07-07 15:51] VITALS: BP 123/81
[2020-07-07] MEDS ORDERED: GLIMEPIRIDE 2 MG TABLET PO SCH (18:00)
[2020-07-07] MEDS: clonazePAM 0.5 MG TABLET PO SCH (19:54)
--- NOTE | 2020-07-07 23:48 | PN ---
DATE: 07/07/2020 SUBJECTIVE: The patient was seen today, met with the staff. Chart reviewed and also covering for Dr. Belle. The patient's behavior remains the same, mostly withdrawn, isolative, on wheelchair. Has episodes of irritability, angry outburst and irritable, having difficulty getting along with other residents. The patient also demanding with the staff. OBSERVATION: VITAL SIGNS: Temperature 98.2, blood pressure 104/59, pulse 57, respirations 16, O2 sat 97%. Slept about 7 hours last night. The patient's appetite improved. The patient's lab reviewed and also medications. Currently, not having any side effects. ASSESSMENT: 1. Schizoaffective disorder, bipolar type, mixed with psychotic features. 2. Generalized anxiety disorder. PLAN: To continue with the treatment. LENGTH OF STAY: 5-[address]: Christopher TID: [id number]
[2020-07-08] MEDS: LEVOTHYROXINE 50 MCG TABLET PO SCH (06:00)
[2020-07-08 06:07] VITALS: BP 105/67
[2020-07-08] MEDS: GLIMEPIRIDE 2 MG TABLET PO SCH ×2 (08:32→17:18)
[2020-07-08] MEDS: metFORMIN 500 MG TABLET PO SCH ×2 (08:32→17:18)
[2020-07-08] MEDS: CHOLECALCIFEROL (VITAMIN D3) 1,000 UNIT TABLET PO SCH (08:32)
[2020-07-08] MEDS: LACTOBACILLUS RHAMNOSUS GG 1 CAPSULE. PO SCH ×2 (08:32→19:52)
[2020-07-08] MEDS: VALPROIC ACID 250 MG CAPSULE. PO SCH ×2 (08:33→19:52)
[2020-07-08] MEDS: QUEtiapine 25 MG TABLET. PO SCH ×3 (08:33→17:18)
[2020-07-08] MEDS: NICOTINE 14MG PATCH. TD SCH (08:33)
[2020-07-08] MEDS: NYSTATIN TOPICAL POWDER 15GM BOTTLE. TP SCH ×2 (08:36→19:52)
[2020-07-08] MEDS: CEPHALEXIN 250 MG CAPSULE PO SCH ×3 (12:03→19:52)
[2020-07-08 16:02] VITALS: BP 128/83
[2020-07-08] MEDS ORDERED: NEOMYCIN/BACI/POLY/HC OPHTH OINTMENT 3.5GM TUBE. OU SCH (17:00)
[2020-07-08] MEDS: NEO/POLYMYX/DEXAMETH OPHTH SUSPENSION 5ML BOTTLE. OU SCH ×2 (17:18→19:53)
[2020-07-08] MEDS: clonazePAM 0.5 MG TABLET PO SCH (19:52)
--- NOTE | 2020-07-08 23:38 | PN ---
DATE: 07/08/2020 SUBJECTIVE: The patient was seen today, met with the staff, chart reviewed and also covering for Dr. Belle. Staff reports increased behavior problems, tend to isolate himself, have difficulty interacting with the staff and residents. He is verbally aggressive, cursing and also angry and rude towards staff and patients. OBSERVATION: VITAL SIGNS: Temperature 98.6, blood pressure 105/67, pulse 59, respirations 20, O2 sat 92%. GENERAL: Slept about 8 hours last night. The patient's appetite is fair. LABORATORY DATA: Reviewed. MEDICATIONS: Reviewed. ALLERGIES: Not having any side effects. ASSESSMENT: 1. Schizoaffective disorder, bipolar type, mixed with psychotic features. 2. Generalized anxiety disorder. PLAN: To continue with the treatment. LENGTH OF STAY: 5-7 days. SONG/SIDNEY/ELAINE DR: Christopher TID: [id number]
[2020-07-09] MEDS: LEVOTHYROXINE 50 MCG TABLET PO SCH (05:58)
[2020-07-09 05:59] VITALS: BP 161/68
[2020-07-09] MEDS: NEO/POLYMYX/DEXAMETH OPHTH SUSPENSION 5ML BOTTLE. OU SCH ×2 (08:15→21:18)
[2020-07-09] MEDS: GLIMEPIRIDE 2 MG TABLET PO SCH ×2 (08:15→17:03)
[2020-07-09] MEDS: CEPHALEXIN 250 MG CAPSULE PO SCH ×3 (08:15→21:18)
[2020-07-09] MEDS: LACTOBACILLUS RHAMNOSUS GG 1 CAPSULE. PO SCH ×2 (08:16→21:18)
[2020-07-09] MEDS: CHOLECALCIFEROL (VITAMIN D3) 1,000 UNIT TABLET PO SCH (08:16)
[2020-07-09] MEDS: metFORMIN 500 MG TABLET PO SCH ×2 (08:16→17:02)
[2020-07-09] MEDS: VALPROIC ACID 250 MG CAPSULE. PO SCH ×2 (08:16→21:17)
[2020-07-09] MEDS: QUEtiapine 25 MG TABLET. PO SCH ×3 (08:17→17:02)
[2020-07-09] MEDS: NICOTINE 14MG PATCH. TD SCH (08:19)
[2020-07-09] MEDS: NYSTATIN TOPICAL POWDER 15GM BOTTLE. TP SCH ×2 (08:20→21:18)
[2020-07-09] MEDS: KETOCONAZOLE 2% SHAMPOO 120ML BOTTLE. TP SCH (08:20)
--- NOTE | 2020-07-09 13:26 | TX PLAN ---
Interdisciplinary Tx Plan Admission Information Jun 15, 2020 at 10:35 Legal Status (on Admission): Voluntary DPOA/Guardian Name: Self Sign Other Contact Name: Jl COHEN at [facility] Other Contact Verified Code Status: Full Code Allergies: Coded Allergies: Influenza Virus Vaccines (Verified Allergy, Unknown, Anaphylaxis, 06/15/20) egg (Verified Allergy, Unknown, 12/21/19) Estimated Length of Stay: 14 Diagnoses Primary Diagnosis: Schizoaffective d/o bipolar type mixed with psychotic features; anxiety d/o unspecified; impulse control d/o Reasons for Admission: Aggressive, Relation/conflict, Agitated, Depressed, Angry, Poor impulse control Problem in Patient's Words: Per Pavan, "I need to get my blood checked for my medications. There were some stress factors with people there (at [facility]) making me mad and blow up." Problems Active Problems: verbally agressive, yelling at peers causing them to feel demeaned, agitated depressed anxious flipping staff off and telling them "fuck you." Inactive Problems: Adequate sleep Medication compliant Pt Strengths/Limitations Ability for [place]: Poor Cognitive Functioning/Ability: Fair Communication Skills/Ability: Fair Financial Resources: Fair Insight/Judgement: Poor Intellectual Ability: Fair Physical Health: Fair Social Skills: Fair Stability in Family: Poor Verbal Skills: Fair Discharge Criteria Discharge Criteria: Adequate arrangements @DC, Improved behavior, Improved mood/thought Preliminary Discharge Plan Preliminary DC Plan: Longterm Other Arrangements: [facility] vs. [facility] Special Precautions Special Precautions: Agitation/Assault Fall Risk: High Initial D/C Plan [facility] vs. [facility] Identified Discharge Needs: F/U with PCP, Psychiatrist, arrange for counseling if available. Currently Utilized Resources Currently Utilized Resources/P: PCP Out patient psychiatry [address] [facility] Referrals Community Resources: Counseling if available Identified Problems/Hx/Goals Objectives/Short-Term Goals Short Term Goals: Control abnormal behavior, Dec. Aggression, Dec. Anxiety/Panic, Dec. Outbursts, Dec. Symp. Depression, Improved Social Skills, Medication Stabilization, Monitor Med Effects, Promote Coping Skill Short Term Goals in Patient's: Per Pavan, "Get my medicines balanced out, I have to at least once a year." Interventions/Frequency Staff Interventions/Frequency&: Nursing to provide routine safety checks, medication administration, and adl support. Psychiatrist to see three times week. SW to visit twice weekly. Recreation and SW groups as Pavan will join. History Vocational History: Pavan is on disability. Social: Pavan enjoys watching television, states he likes his privacy. Education: Pavan graduated high school. Community Follow-up PCP Out pt. psychiatry and counseling, if available Treatment Plan Explained Patient/Hris Administrator had this treatment plan explained to him/her as indicated by the signature below and has been given the opportunity to ask questions and make suggestions: Date: Patient/Hris Administrator Signature: Status Update Update WEEKLY NOTE/UPDATE: Pavan is averaging 100% of meal intakes and seven hours of sleep. Cognitive testing is to be completed today by Dr. Mary, psychologist. While Pavan has been medication compliant and cooperative at times of cares he continues to have verbal outbursts when he yells at others and uses profanity. He is easily annoyed by peers with cognitive and physical deficits. Pavan is involved in groups and enjoys the patio area. SW will proceed with sending referrals for placement. HERMELINDA DIOP July 09, 2020 13:26
[2020-07-09 15:54] VITALS: BP 135/82
[2020-07-09] MEDS: clonazePAM 0.5 MG TABLET PO SCH (21:18)
[2020-07-10] MEDS: LEVOTHYROXINE 50 MCG TABLET PO SCH (05:24)
[2020-07-10 06:08] VITALS: BP 112/62
[2020-07-10] MEDS: LACTOBACILLUS RHAMNOSUS GG 1 CAPSULE. PO SCH ×2 (08:00→20:38)
[2020-07-10] MEDS: GLIMEPIRIDE 2 MG TABLET PO SCH ×2 (08:00→16:59)
[2020-07-10] MEDS: NEO/POLYMYX/DEXAMETH OPHTH SUSPENSION 5ML BOTTLE. OU SCH ×2 (08:00→20:37)
[2020-07-10] MEDS: metFORMIN 500 MG TABLET PO SCH ×2 (08:00→16:59)
[2020-07-10] MEDS: CEPHALEXIN 250 MG CAPSULE PO SCH ×3 (08:01→20:38)
[2020-07-10] MEDS: VALPROIC ACID 250 MG CAPSULE. PO SCH ×2 (08:01→20:38)
[2020-07-10] MEDS: QUEtiapine 25 MG TABLET. PO SCH ×3 (08:01→16:59)
[2020-07-10] MEDS: CHOLECALCIFEROL (VITAMIN D3) 1,000 UNIT TABLET PO SCH (08:01)
[2020-07-10] MEDS: NYSTATIN TOPICAL POWDER 15GM BOTTLE. TP SCH ×2 (08:02→20:43)
[2020-07-10] MEDS: NICOTINE 14MG PATCH. TD SCH (09:00)
--- NOTE | 2020-07-10 10:16 | PN ---
DATE: 07/09/2020 SUBJECTIVE: The patient was seen today, met with the staff, chart reviewed and also covering for Dr. Belle. Also participated in the treatment review meeting today. He is medication compliant, tend to isolate himself, tend to be demanding, verbally abusive towards staff at times. The patient gets upset when he is in a group, especially when he is in the dining room. OBSERVATION: VITAL SIGNS: Temperature 97.8, blood pressure 161/68, pulse 57, respirations 20, O2 sat 96%. GENERAL: Slept about 7 hours last night. The patient's appetite, normal. LABORATORY DATA: The patient's lab reviewed. MEDICATIONS: The patient's medications reviewed, not having any side effects. ASSESSMENT: 1. Schizoaffective disorder, bipolar type, mixed with psychotic features. 2. Generalized anxiety disorder. PLAN: The patient is scheduled to have neuropsych testing for his cognitive abilities. 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 LENGTH OF STAY: Five to seven days. JESSICA DR: Christopher TID: [id number]
[2020-07-10] MEDS: clonazePAM 0.5 MG TABLET PO SCH (20:38)
[2020-07-10 22:55] VITALS: BP 133/81
[2020-07-11] MEDS: LEVOTHYROXINE 50 MCG TABLET PO SCH (05:50)
[2020-07-11 05:55] VITALS: BP 105/67
[2020-07-11] MEDS: metFORMIN 500 MG TABLET PO SCH ×2 (08:20→17:36)
[2020-07-11] MEDS: GLIMEPIRIDE 2 MG TABLET PO SCH ×2 (08:20→17:36)
[2020-07-11] MEDS: LACTOBACILLUS RHAMNOSUS GG 1 CAPSULE. PO SCH ×2 (08:21→21:23)
[2020-07-11] MEDS: VALPROIC ACID 250 MG CAPSULE. PO SCH ×2 (08:21→21:23)
[2020-07-11] MEDS: CHOLECALCIFEROL (VITAMIN D3) 1,000 UNIT TABLET PO SCH (08:21)
[2020-07-11] MEDS: CEPHALEXIN 250 MG CAPSULE PO SCH ×3 (08:22→21:23)
[2020-07-11] MEDS: NICOTINE 14MG PATCH. TD SCH (08:22)
[2020-07-11] MEDS: QUEtiapine 25 MG TABLET. PO SCH ×3 (08:22→17:36)
[2020-07-11] MEDS: NYSTATIN TOPICAL POWDER 15GM BOTTLE. TP SCH ×2 (08:22→21:23)
[2020-07-11] MEDS: NEO/POLYMYX/DEXAMETH OPHTH SUSPENSION 5ML BOTTLE. OU SCH ×2 (08:49→21:24)
[2020-07-11 16:14] VITALS: BP 146/81
[2020-07-11] MEDS: clonazePAM 0.5 MG TABLET PO SCH (21:23)
--- NOTE | 2020-07-11 21:33 | DS ---
DATE OF DISCHARGE: 07/11/2020 FINAL DIAGNOSES: AXIS I: 1. Schizoaffective disorder, bipolar type, mixed with psychotic features. 2. Anxiety disorder, unspecified. 3. Impulse control disorder, unspecified. AXIS II: None. AXIS III: Status post cerebrovascular accident, diabetes mellitus, hemiplegia, dysphagia. REASON FOR ADMISSION: This 60-year-old male was admitted from [facility] and rehabilitation on account of acute exacerbation of his schizoaffective disorder with psychotic symptoms. The patient has been at this facility for some time and lately has been getting more aggressive, hyperverbal, argumentative, periods of depression, high level of anxiety. The patient also verbally abusive towards others. The patient apparently failed outpatient treatment. HISTORY OF PRESENT ILLNESS: The patient has a history of schizoaffective disorder, bipolar type and is known to have extreme mood swings, paranoia, also appetite and sleep changes. Also, increased aggression and agitation. Denied of any suicidal or homicidal thoughts. HOSPITAL COURSE: The patient had a physical exam, routine lab work including CBC, chem profile, urinalysis. The patient's RBC count was 3.89. The patient's MCV was 104. The patient's blood sugar fluctuated in mid 200. The patient's liver enzymes were within normal range. The patient's T4 was 6.8. The patient's lipid profile was abnormal. Triglycerides 678, cholesterol 252, HDL 32, patient's TSH was 8.4. The patient was involved in the program including individual and group therapy and activity therapy. The patient was on wheelchair, stay to himself most of the time, usually he becomes more aggressive when he is around people. The patient also sometimes difficult to redirect, but over the last few days his behavior has improved. MEDICATIONS: The patient was on cephalexin 500 mg 3 times a day. The patient was also on Seroquel 50 mg t.i.d. p.o., Amaryl 4 mg twice a day with meals p.o., fluvoxamine 75 mg daily p.o., levothyroxine 50 mcg daily p.o., valproic acid 50 mg daily and 750 mg at night, clonazepam 0.5 mg at night, metformin 1000 mg twice a day with meals p.o. The patient was also on olanzapine 5 mg q.2h. p.r.n. The patient did not have any side effects to the medications. AFTERCARE PLANS: The patient at the time of discharge was medically stable. The patient is not expressing any suicidal or homicidal thoughts. His condition improved. The patient is able to hold a reasonable conversation. No evidence of any psychotic symptoms. The patient will return to [facility]. MARIVEL DR: Christopher TID: [id number]
[2020-07-11] MEDS ORDERED: GLIM4TAB8 PO (23:36)
[2020-07-11] MEDS ORDERED: CEPH500T PO (23:36)
[2020-07-11] MEDS ORDERED: LEVO50TA PO (23:39)
[2020-07-11] MEDS ORDERED: LACT1TAB24 PO (23:39)
[2020-07-11] MEDS ORDERED: MAG-115 PO (23:40)
[2020-07-11] MEDS ORDERED: NEO/5DRO OS (23:42)
[2020-07-11] MEDS ORDERED: NICO1PAT25 TP (23:43)
[2020-07-11] MEDS ORDERED: OLAN5TAB3 PO (23:44)
[2020-07-11] MEDS ORDERED: FLUV100C PO (23:47)
[2020-07-12] MEDS: LEVOTHYROXINE 50 MCG TABLET PO SCH (05:35)
[2020-07-12 05:44] VITALS: BP 102/59
[2020-07-12] MEDS: KETOCONAZOLE 2% SHAMPOO 120ML BOTTLE. TP SCH (07:45)
[2020-07-12] MEDS: NICOTINE 14MG PATCH. TD SCH (07:45)
[2020-07-12] MEDS: NYSTATIN TOPICAL POWDER 15GM BOTTLE. TP SCH (07:46)
[2020-07-12] MEDS: NEO/POLYMYX/DEXAMETH OPHTH SUSPENSION 5ML BOTTLE. OU SCH (09:00)
[2020-07-12] MEDS: GLIMEPIRIDE 2 MG TABLET PO SCH (09:22)
[2020-07-12] MEDS: metFORMIN 500 MG TABLET PO SCH (09:22)
[2020-07-12] MEDS: CEPHALEXIN 250 MG CAPSULE PO SCH (09:22)
[2020-07-12] MEDS: QUEtiapine 25 MG TABLET. PO SCH (09:23)
[2020-07-12] MEDS: LACTOBACILLUS RHAMNOSUS GG 1 CAPSULE. PO SCH (09:23)
[2020-07-12] MEDS: CHOLECALCIFEROL (VITAMIN D3) 1,000 UNIT TABLET PO SCH (09:23)
[2020-07-12] MEDS: VALPROIC ACID 250 MG CAPSULE. PO SCH (09:23)
--- NOTE | 2020-07-18 07:47 | PDOC ---
Exam Note: Kwasi Note: This note is a late entry for 06/29/2020 covers elements not covered in my initial note. Subjective: This note was initially completed on 06/29/2020 but cannot be retrieved in the electronic medical system and is being re-dictated today 07/17/2020. The patient was seen individually in the evening of 06/29/2020 with Orestes GAUTAM, discussed and reviewed the chart. The patient has been somewhat demanding, irritable, labile in his mood. He has been cursing at the couple of the female patients on the unit but redirects. Review of Systems: Ambulation impaired in wheelchair. No CV, , pulmonary, eye, ENT system symptoms on review. Mental Status Exam: The patient is oriented to himself and situation. Speech coherent, rapid at times, quite irritable, dismissive at times. Attention span short. Language function intact. Mood and affect labile. No suicidal or homicidal ideation. Laboratory Data: Reviewed. Impression: Schizoaffective disorder, bipolar type mixed with psychotic features. Anxiety disorder unspecified. Impulse control disorder unspecified. Plan: Continue current psychotropics. Dr. Malik will cover for me starting from 06/30/2020 at 8 a.m. till 07/15/2020 at 8 p.m. Current Medications: Meds: Current Medications Medications (Trade) Dose Ordered Sig/Samm Route PRN Reason Start Time Stop Time Status Last Admin Dose Admin Acetaminophen (Tylenol) 650 mg PRN Q4HRS PRN PO pain or fever 06/15/20 11:30 07/12/20 11:09 DC Bisacodyl (Dulcolax Supp) 10 mg PRN DAILY PRN RC 2ND CHOICE CONSTIPATION 06/15/20 11:30 07/12/20 11:09 DC Clonazepam (KlonoPIN) 0.5 mg HS PO 06/15/20 21:00 07/12/20 11:09 DC 07/11/20 21:23 Al Hydroxide/Mg Hydroxide (Mylanta Plus Xs) 30 ml Q6HRS PRN PO HEARTBURN/INDIGESTION 06/15/20 11:30 06/15/20 14:34 DC Nystatin (Nystop) 1 shay BID TP 06/15/20 21:00 07/12/20 11:09 DC 07/12/20 07:46 Quetiapine Fumarate (SEROquel) 25 mg BID PO 06/15/20 21:00 06/24/20 17:47 DC 06/24/20 06:47 Valproic Acid (Depakene) 500 mg DAILY PO 06/16/20 09:00 07/12/20 11:09 DC 07/12/20 09:23 Valproic Acid (Depakene) 750 mg HS PO 06/15/20 21:00 07/12/20 11:09 DC 07/11/20 21:23 Vitamin D (Vitamin D3) 500 unit DAILY PO 06/16/20 09:00 07/12/20 11:09 DC 07/12/20 09:23 Citalopram Hydrobromide (CeleXA) 40 mg DAILY PO 06/16/20 09:00 06/18/20 11:56 DC 06/18/20 08:41 Magnesium Hydroxide (Milk Of Magnesia) 2,400 mg PRN DAILY PRN PO CONSTIPATION 06/15/20 12:15 06/15/20 14:34 DC Non-Formulary Medication (Menthol (Biofreeze)) 1 shay Q6HRS TP 06/15/20 12:00 06/15/20 12:07 DC Metformin HCl (Glucophage) 1,000 mg BIDWMEALS PO 06/15/20 17:00 07/12/20 11:09 DC 07/12/20 09:22 Multi-Ingredient Ointment (Analgesic Sun) 1 shay PRN Q6HRS PRN TP MUSCLE SPASTICITY 06/15/20 12:15 06/15/20 14:34 DC Ketoconazole (Nizoral 2% Shampoo) 1 shay MoTh TP 06/18/20 09:00 07/12/20 11:09 DC 07/09/20 08:20 Acetaminophen (Tylenol) 650 mg PRN Q6HRS PRN PO MILD PAIN / TEMP > 100.3'F 06/15/20 12:15 UNV Multi-Ingredient Ointment (Analgesic Sun) 1 shay PRN QID PRN TP MUSCLE PAIN 06/15/20 12:15 07/12/20 11:09 DC Al Hydroxide/Mg Hydroxide (Mylanta Plus Xs) 15 ml PRN AFTMEALHC PRN PO DYSPEPSIA 06/15/20 12:15 07/12/20 11:09 DC Magnesium Hydroxide (Milk Of Magnesia) 2,400 mg PRN QHS PRN PO 1ST CHOICE CONSTIPATION 06/15/20 12:15 07/12/20 11:09 DC Nicotine (Nicoderm Cq 14mg Patch) 1 patch DAILY TD 06/15/20 19:20 07/12/20 11:09 DC 07/01/20 08:03 Glimepiride (Amaryl) 2 mg BIDWMEALS PO 06/17/20 17:00 07/01/20 15:49 DC 07/01/20 08:03 Fluvoxamine Maleate (Luvox) 25 mg DAILY08 PO 06/19/20 08:00 06/21/20 23:50 DC 06/21/20 08:04 Fluvoxamine Maleate (Luvox) 50 mg DAILY08 PO 06/22/20 08:00 06/22/20 18:39 DC 06/22/20 08:47 Amoxicillin (Amoxil) 500 mg [id number] PO 06/18/20 15:15 06/28/20 15:14 DC 06/28/20 13:05 Lactobacillus Rhamnosus (Culturelle) 1 cap BID PO 06/18/20 21:00 07/12/20 11:09 DC 07/12/20 09:23 Fluvoxamine Maleate (Luvox) 75 mg DAILY PO 06/25/20 09:00 07/12/20 11:09 DC 07/12/20 09:23 Fluvoxamine Maleate (Luvox) 50 mg DAILY PO 06/23/20 09:00 06/24/20 09:01 DC 06/24/20 06:47 Levothyroxine Sodium (Synthroid) 50 mcg DAILY06 PO 06/24/20 06:00 07/12/20 11:09 DC 07/12/20 05:35 Olanzapine (ZyPREXA) 5 mg PRN Q2HR PRN PO PSYCHOSIS 06/23/20 16:00 07/12/20 11:09 DC 07/07/20 08:08 Quetiapine Fumarate (SEROquel) 25 mg 0900,1300,1700 PO 06/24/20 18:00 06/27/20 17:59 DC 06/27/20 17:40 Quetiapine Fumarate (SEROquel) 25 mg 1300 PO 06/28/20 13:00 06/29/20 00:06 DC 06/28/20 13:05 Quetiapine Fumarate (SEROquel) 37.5 mg 0900,1700 PO 06/28/20 09:00 06/29/20 00:06 DC 06/28/20 17:26 Quetiapine Fumarate (SEROquel) 50 mg TID@0900,1300,1700 PO 06/29/20 09:00 07/12/20 11:09 DC 07/12/20 09:23 Glimepiride (Amaryl) 4 mg BIDWMEALS PO 07/01/20 17:00 07/12/20 11:09 DC 07/12/20 09:22 Glimepiride (Amaryl) 2 mg BID76 PO 07/07/20 18:00 UNV Furosemide (Lasix) 80 mg 1X STAT PO 07/07/20 11:44 07/07/20 11:45 DC 07/07/20 12:31 Neomycin/ Polymyxin/Bacitr/ Hydrocort (Cortisporin Ophth) 1 shay BID OU 07/08/20 17:00 Cancel Cephalexin HCl (Keflex) 500 mg TID PO 07/08/20 11:00 07/12/20 11:09 DC 07/12/20 09:22 Neomycin/ Polymyxin/ Dexamethasone (Maxitrol) 2 drop BID OU 07/08/20 17:00 07/12/20 11:09 DC 07/11/20 21:24 I have reviewed the current psychotropics carefully including drug interactions. Risk benefit ratio favors no change other than as noted in my dictated progress note. Diagnosis: Problems: (1) Bipolar disorder, curr episode mixed, severe, with psychotic features (2) Anxiety disorder, unspecified (3) Impulse control disorder, unspecified (4) Schizoaffective disorder, bipolar type CAREN MALIK MD July 18, 2020 07:47
== END 2020-07-12 10:45 | DRG 885 ==
LOC: GEROPSY 10:35
PROVIDERS: ADMIT Psychiatry & Neurology Psychiatry; ATTEND Psychiatry & Neurology Psychiatry
DX: F25.0 Schizoaffective disorder, bipolar type (principal); I69.354 Hemiplegia and hemiparesis following cerebral infarction affecting left non-dominant side; E11.42 Type 2 diabetes mellitus with diabetic polyneuropathy; E78.5 Hyperlipidemia, unspecified; F03.90 Unspecified dementia, unspecified severity, without behavioral disturbance, psychotic disturbance, mood disturbance, and anxiety; F12.90 Cannabis use, unspecified, uncomplicated; F17.210 Nicotine dependence, cigarettes, uncomplicated; F41.1 Generalized anxiety disorder; F63.9 Impulse disorder, unspecified; G40.909 Epilepsy, unspecified, not intractable, without status epilepticus; G80.9 Cerebral palsy, unspecified; R13.10 Dysphagia, unspecified; Z79.899 Other long term (current) drug therapy; Z80.1 Family history of malignant neoplasm of trachea, bronchus and lung; Z98.2 Presence of cerebrospinal fluid drainage device; Z99.3 Dependence on wheelchair; K21.9 Gastro-esophageal reflux disease without esophagitis; Z20.822 Contact with and (suspected) exposure to COVID-19; Z88.7 Allergy status to serum and vaccine; Z91.012 Allergy to eggs
CPT/HCPCS: 36415; 70450; 80053; 80061; 80164; 81001; 82306; 82607; 82947; 83036; 83540; 83550; 83735; 84436; 84443; 84480; 85025; 85379; 86592; 87077; 87086; 87186; 93005; 93971; 99406; U0003

== ENCOUNTER 2021-07-19 11:05 | Inpatient (IN) | payer MEDICARE, OTHER ==
[~2021-07-19] VITALS: Ht 170.2 cm; Wt 74.2 kg
[~2021-07-19 11:05] MED LIST changes: +CEPH500T PO; +CHOL400C PO; +CITA40TA6 PO; +FLUV100C PO; +GLIM4TAB8 PO; +LACT1TAB24 PO; +LEVO50TA PO; +MAG-115 PO; +MENT118G TP; +NEO/5DRO OS; +NICO1PAT25 TP; +OLAN5TAB3 PO; +[UNRECOGNIZED DRUG - OTHER] TOP
--- NOTE | 2021-07-19 12:07 | PHYS DOC ---
General Adult EDM: Chief Complaint: MEDICAL CLEARANCE HPI: HPI: Patient is a 61-year-old male coming in from nursing facility for medical clearance to go to [facility]. Patient required H unit because he has been more aggressive and combative with staff at the nursing facility. Review of Systems: Review of Systems: All other systems within normal limits except for as noted in the HPI Allergies: Allergies: Allergies Coded Allergies Type Severity Reaction Last Updated Verified Influenza Virus Vaccines Allergy Unknown Anaphylaxis 06/15/20 Yes egg Allergy Unknown 12/21/19 Yes Physical Exam: PE: Constitutional: Well developed, well nourished, no acute distress, non-toxic appearance. [] HENT: Normocephalic, atraumatic, bilateral external ears normal, nose normal. [] Eyes: PERRLA, conjunctiva normal, no discharge. [] Neck: No rigidity, supple, no stridor. [] Cardiovascular: Regular rate and rhythm, brisk cap refill [] Lungs & Thorax: Non labored symmetric respirations, no tachypnea or respiratory distress [] Abdomen: Soft, nondistended. Skin: Warm, dry, no erythema, no rash. [] Back: Unremarkable Extremities: No deformities, range of motion grossly intact, no lower extremity edema [] Neurologic: Alert and oriented X 3, no focal deficits noted. [] Psychologic: Affect normal, judgement normal, mood normal. [] EKG: EKG: [] Radiology/Procedures: Radiology/Procedures: [] Heart Score: C/O Chest Pain: No Risk Factors: Risk Factors: DM, Current or recent (<one month) smoker, HTN, HLP, family history of CAD, obesity. Risk Scores: Score 0 - 3: 2.5% MACE over next 6 weeks - Discharge Home Score 4 - 6: 20.3% MACE over next 6 weeks - Admit for Clinical Observation Score 7 - 10: 72.7% MACE over next 6 weeks - Early Invasive Strategies Course & Med Decision Making: Course & Med Decision Making Patient medically cleared for admission to [facility]. Mega Disclaimer: Mega Disclaimer: This electronic medical record was generated, in whole or in part, using a voice recognition dictation system. Departure Departure: Impression: Primary Impression: Medical clearance for psychiatric admission Disposition: HOME / SELF CARE / HOMELESS Condition: STABLE Referrals: ADRIAN FIGUEROA (PCP) Patient Instructions: Medical Screening Exam CECY BA MD July 19, 2021 12:07
[2021-07-19 12:49] LABS: ANION GAP 7 (6-14); BLOOD UREA NITROGEN 13 mg/dL (8-26); BUN/CREATININE RATIO 14 (6-20); CALCIUM 9.1 mg/dL (8.5-10.1); CARBON DIOXIDE 29 mmol/L (21-32); CHLORIDE 104 mmol/L (98-107); CREATININE 0.9 mg/dL (0.7-1.3); GFR 86.4; GLUCOSE 128 mg/dL (70-99); SODIUM 140 mmol/L (136-145)
[2021-07-19 12:56] LABS: ALBUMIN 2.8 g/dL (3.4-5.0); ALBUMIN/GLOBULIN RATIO 0.6 (1.0-1.7); ALK PHOS 47 U/L (46-116); ALT (SGPT) 32 U/L (16-63); AST (SGOT) 27 U/L (15-37); BASO % 1 % (0-3); EOS # 0.1 x10^3/uL (0.0-0.7); EOS % 2 % (0-3); HEMATOCRIT 44.5 % (39.0-53.0); HEMOGLOBIN 14.8 g/dL (13.0-17.5); LYMPH # 2.4 x10^3/uL (1.0-4.8); LYMPH % 35 % (24-48); MAGNESIUM 1.7 mg/dL (1.8-2.4); MEAN CORPUSCULAR HEMOGLOBIN 33 pg (25-35); MEAN CORPUSCULAR HGB CONC 33 g/dL (31-37); MEAN CORPUSCULAR VOLUME 98 fL (79-100); MONO # 1.1 x10^3/uL (0.0-1.1); MONO % 16 % (0-9); NEUT # 3.2 x10^3uL (1.8-7.7); NEUT % 47 % (31-73); PLATELET COUNT 154 x10^3/uL (140-400); RED BLOOD COUNT 4.55 x10^6/uL (4.30-5.70); RED CELL DISTRIBUTION WIDTH 14.4 % (11.5-14.5); TOTAL BILIRUBIN 0.2 mg/dL (0.2-1.0); TOTAL PROTEIN 7.3 g/dL (6.4-8.2); WHITE BLOOD COUNT 6.8 x10^3/uL (4.0-11.0)
[2021-07-19 12:58] LABS: VAL ACID 97 mcg/mL (50-100)
[2021-07-19 14:02] LABS: INFLUENZA A PATIENT NEGATIVE (NEGATIVE); INFLUENZA B PATIENT NEGATIVE (NEGATIVE)
[2021-07-19 14:03] LABS: CLARITY,URINE CLEAR; COLOR,URINE YELLOW; GLUCOSE,URINE 500 mg/dL (NEG); UROBILINOGEN,URINE 0.2 mg/dL (0.2 mg/dL)
[2021-07-19 14:04] LABS: BACTERIA,URINE 0 /HPF (0-FEW); NITRITE,URINE NEG (NEG); RBC,URINE 0 /HPF (0-2); SQUAMOUS EPITHELIAL CELL,UR OCC /LPF; WBC,URINE 0 /HPF (0-4)
[2021-07-19 14:20] LABS: AMPHETAMINE/METHAMPHETAMINE NEG (NEG); BARBITURATES NEG (NEG); BENZODIAZEPINES NEG (NEG); CANNABINOIDS NEG (NEG); COCAINE NEG (NEG); METHADONE NEG (NEG); OPIATES NEG (NEG); PHENCYCLIDINE NEG (NEG)
[2021-07-19] MEDS ORDERED: FLUV50TA21 PO (14:22)
[2021-07-19] MEDS ORDERED: QUET100T4 PO (14:22)
[2021-07-19] MEDS ORDERED: METH85CR30 TP (14:49)
[2021-07-19] MEDS ORDERED: HALO5TAB PO (14:58)
[2021-07-19] MEDS ORDERED: HALO5SYR3 IM (14:58)
[2021-07-19] MEDS ORDERED: INSU100C SQ (15:09)
[2021-07-19] MEDS ORDERED: INSU100I13 SQ (15:09)
[2021-07-19] MEDS ORDERED: LOPE2TAB27 PO (15:11)
[2021-07-19] MEDS ORDERED: TRAM50TA PO (15:18)
[2021-07-19 17:46] VITALS: BP 109/60
[2021-07-19] MEDS ORDERED: ACETAMINOPHEN 325 MG TABLET PO PRN ×2 (18:15→18:30)
[2021-07-19] MEDS ORDERED: MAG HYDROX/AL HYDROX/SIMETH 30 ML ORAL.SUSP PO PRN ×2 (18:15→18:30)
[2021-07-19] MEDS ORDERED: METHYL SALICYLATE/MENTHOL TOPICAL OINTMENT 57GM TUBE. TP PRN (18:15)
[2021-07-19] MEDS ORDERED: MAGNESIUM HYDROXIDE 2,400 MG/30 ML ORAL.SUSP. PO PRN (18:15)
[2021-07-19] MEDS ORDERED: HALOPERIDOL 5 MG TABLET PO PRN (18:30)
[2021-07-19] MEDS ORDERED: NYSTATIN TOPICAL POWDER 15GM BOTTLE. TP PRN (18:30)
[2021-07-19] MEDS ORDERED: MENTHOL TP PRN (18:30)
[2021-07-19] MEDS ORDERED: NON FORMULARY ITEM (Menthol (Biofreeze) 1 APP) TP PRN (18:30)
[2021-07-19] MEDS ORDERED: NON FORMULARY ITEM (Magnesium Hydroxide (Milk Of Magnesia) 2,400 MG) PO PRN (18:30)
[2021-07-19] MEDS ORDERED: METHYL SALICYLATE TP PRN (18:30)
[2021-07-19] MEDS ORDERED: LOPERAMIDE 2 MG CAPSULE PO PRN (19:15)
[2021-07-19] MEDS: LACTOBACILLUS RHAMNOSUS GG 1 CAPSULE. PO SCH (21:10)
[2021-07-19] MEDS: clonazePAM 0.5 MG TABLET PO SCH (21:10)
[2021-07-19] MEDS: VALPROIC ACID 250 MG CAPSULE. PO SCH (21:10)
[2021-07-19] MEDS: QUEtiapine 100 MG TABLET. PO SCH (21:10)
[2021-07-19] MEDS: INSULIN LISPRO 300 UNITS/3 ML VIAL. SQ SCH (21:14)
[2021-07-19] MEDS: INSULIN GLARGINE SYRINGE. SQ SCH (21:15)
[2021-07-20 05:54] VITALS: BP 101/65
[2021-07-20] MEDS ORDERED: LEVOTHYROXINE 50 MCG TABLET PO SCH (07:30)
[2021-07-20 07:45] LABS: BASO % 0 % (0-3); EOS # 0.1 x10^3/uL (0.0-0.7); EOS % 2 % (0-3); HEMATOCRIT 42.4 % (39.0-53.0); HEMOGLOBIN 14.3 g/dL (13.0-17.5); LYMPH # 2.9 x10^3/uL (1.0-4.8); LYMPH % 37 % (24-48); MEAN CORPUSCULAR HEMOGLOBIN 33 pg (25-35); MEAN CORPUSCULAR HGB CONC 34 g/dL (31-37); MEAN CORPUSCULAR VOLUME 98 fL (79-100); MONO # 1.3 x10^3/uL (0.0-1.1); MONO % 17 % (0-9); NEUT # 3.5 x10^3uL (1.8-7.7); NEUT % 45 % (31-73); PLATELET COUNT 167 x10^3/uL (140-400); RED BLOOD COUNT 4.34 x10^6/uL (4.30-5.70); RED CELL DISTRIBUTION WIDTH 14.2 % (11.5-14.5); WHITE BLOOD COUNT 7.8 x10^3/uL (4.0-11.0)
[2021-07-20 08:02] LABS: ALBUMIN 2.7 g/dL (3.4-5.0); ALBUMIN/GLOBULIN RATIO 0.6 (1.0-1.7); CREATININE 0.8 mg/dL (0.7-1.3); GFR 98.9; POTASSIUM 4.3 mmol/L (3.5-5.1); TOTAL BILIRUBIN 0.2 mg/dL (0.2-1.0)
[2021-07-20] MEDS: metFORMIN 500 MG TABLET PO SCH ×2 (08:53→17:22)
[2021-07-20] MEDS: VALPROIC ACID 250 MG CAPSULE. PO SCH ×3 (08:53→20:31)
[2021-07-20] MEDS: QUEtiapine 100 MG TABLET. PO SCH ×3 (08:54→20:31)
[2021-07-20] MEDS: GLIMEPIRIDE 2 MG TABLET PO SCH (08:54)
[2021-07-20] MEDS: CHOLECALCIFEROL (VITAMIN D3) 1,000 UNIT TABLET PO SCH (08:54)
[2021-07-20] MEDS: LACTOBACILLUS RHAMNOSUS GG 1 CAPSULE. PO SCH ×2 (08:54→20:31)
[2021-07-20] MEDS: NICOTINE 14MG PATCH. TD SCH (08:55)
[2021-07-20] MEDS: INSULIN LISPRO 300 UNITS/3 ML VIAL. SQ SCH ×4 (09:00→20:33)
[2021-07-20 11:55] LABS: CHOLESTEROL/HDL RATIO 5.3; THYROID STIM HORMONE (TSH) 3.764 uIU/mL (0.358-3.740)
[2021-07-20 16:13] VITALS: BP 116/78
[2021-07-20] MEDS: clonazePAM 0.5 MG TABLET PO SCH (20:31)
[2021-07-20] MEDS: INSULIN GLARGINE SYRINGE. SQ SCH (20:32)
--- NOTE | 2021-07-20 22:57 | CONS ---
DATE OF CONSULTATION: 07/20/2021 ATTENDING PHYSICIAN: Dr. Anne HISTORY OF PRESENT ILLNESS: We are asked to see this patient for medical consultation. The patient is age 61. He is well known to me from previous admission. He has significant underlying longstanding schizoaffective disorder. He has been verbally abusive, cursing, aggressive towards staff, smoking cigarettes inside the facility. This is typical for him. He has had this type of behavior in the past. PAST MEDICAL HISTORY: Significant for vitamin D deficiency; chronic low back pain; seizures; type 2 diabetes; hypothyroidism, on replacement; and generalized debilitation. ALLERGIES: EGGS AND INFLUENZA VACCINE. He has been at a longterm for many years. CURRENT MEDICATIONS: Include the following: He was on scheduled Tylenol, cholecalciferol, Klonopin, Luvox, glimepiride, Haldol, along with insulin regular and Lantus, loperamide, magnesium, metformin, nystatin, Seroquel, tramadol, Depakote and ketaconazole shampoo. SOCIAL HISTORY: He is a smoker as noted. FAMILY HISTORY: Unobtainable. REVIEW OF SYSTEMS: Unobtainable due to the patient's agitation. PHYSICAL EXAMINATION: GENERAL: When I saw him, this is a very disheveled gentleman who was reasonably cooperative. VITAL SIGNS: Initial vital signs here showed a blood pressure of 109/60 mmHg, pulse is 67 and regular. Oxygen saturation 99% on room air and he was afebrile. HEENT: Head is without trauma. Pupils are reactive. Sclerae nonicteric. The oropharynx is clear. NECK: Supple, no bruits. LUNGS: Otherwise clear to auscultation. CARDIOVASCULAR: Showed regular heart tones. ABDOMEN: Soft. EXTREMITIES: Without edema. NEUROLOGIC FINDINGS: Pleasantly confused. SKIN: Warm and dry. PERTINENT LABORATORY STUDIES: His hemoglobin was 14.8 g/dL with a white count of 6800. Chemistries showed a normal sodium of 139 mEq, normal potassium of 4.3 mEq, creatinine 0.8 mg/dL. Nonfasting blood sugar 125 mg/dL. Transaminases were normal. ASSESSMENT: 1. This 61-year-old gentleman has undifferentiated schizoaffective disorder. 2. He has been institutionalized for many years. He has been very aggressive and acting out. 3. Type 2 diabetes, controlled. 4. Essential hypertension. RECOMMENDATIONS: 1. I have reviewed the patient's medications and these should be continued on the same dosage. 2. He is stable from a medical standpoint. Thank you again for asking me to see the patient for medical consultation. We shall gladly follow along during his inpatient stay. MADI DR: Benjamín TID: [id number]
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
[2021-07-21] MEDS: LEVOTHYROXINE 50 MCG TABLET PO SCH (05:03)
[2021-07-21 05:39] LABS: HEMOGLOBIN A1C 7.6 % (4.8-5.6); THYROXINE 5.8 ug/dL (4.5-12.0)
[2021-07-21 06:02] VITALS: BP 105/66
[2021-07-21] MEDS: QUEtiapine 100 MG TABLET. PO SCH ×3 (08:43→19:52)
[2021-07-21] MEDS: CHOLECALCIFEROL (VITAMIN D3) 1,000 UNIT TABLET PO SCH (08:43)
[2021-07-21] MEDS: GLIMEPIRIDE 2 MG TABLET PO SCH (08:43)
[2021-07-21] MEDS: LACTOBACILLUS RHAMNOSUS GG 1 CAPSULE. PO SCH ×2 (08:43→19:52)
[2021-07-21] MEDS: NICOTINE 14MG PATCH. TD SCH (08:43)
[2021-07-21] MEDS: VALPROIC ACID 250 MG CAPSULE. PO SCH ×3 (08:43→19:52)
[2021-07-21] MEDS: metFORMIN 500 MG TABLET PO SCH ×2 (08:44→17:44)
[2021-07-21] MEDS: INSULIN LISPRO 300 UNITS/3 ML VIAL. SQ SCH ×4 (08:58→19:55)
[2021-07-21 16:09] VITALS: BP 119/71
[2021-07-21] MEDS: clonazePAM 0.5 MG TABLET PO SCH (19:52)
[2021-07-21] MEDS: INSULIN GLARGINE SYRINGE. SQ SCH (19:53)
--- NOTE | 2021-07-22 01:52 | PN ---
DATE: 07/21/2021 SUBJECTIVE: The patient was seen today, met with the staff. Chart was reviewed and covering for Dr. Belle. Staff reports, he has been compliant with the medications. He was oriented to his surroundings. He has also been demanding throughout the day, pressing his call light, asked the same questions. He is easily answered. Also, helpless, withdrawn into his room. He denies of any physical complaints. The patient currently on wheelchair. No falls. OBSERVATION: VITAL SIGNS: Temperature 98.5, blood pressure 105/66, pulse 66, respirations 18, O2 sat 94%. Slept about 2 hours last night. GENERAL: The patient's appetite is fair. CURRENT MEDICATIONS: Fluvoxamine 75 mg daily, valproic acid 750 mg 3 times a day, Seroquel 100 mg 3 times a day, clonazepam 0.5 mg at night, Haldol 5 mg q. 6 hours p.r.n. The patient is not having any side effects to the medications. LABORATORY DATA: The patient's lab reviewed. ASSESSMENT: 1. Schizoaffective disorder, mixed, without psychotic features. 2. Impulse control disorder, unspecified. 3. Adjustment disorder with depressed mood. PLAN: To continue with the treatment. LENGTH OF STAY: Five to seven days. SONG/ROSE BEAULIEU: Christopher TID: [id number]
[2021-07-22] MEDS: LEVOTHYROXINE 50 MCG TABLET PO SCH (05:14)
[2021-07-22 05:40] VITALS: BP 148/71
[2021-07-22] MEDS: NICOTINE 14MG PATCH. TD SCH (08:25)
[2021-07-22] MEDS: LACTOBACILLUS RHAMNOSUS GG 1 CAPSULE. PO SCH ×2 (08:25→19:45)
[2021-07-22] MEDS: GLIMEPIRIDE 2 MG TABLET PO SCH (08:26)
[2021-07-22] MEDS: CHOLECALCIFEROL (VITAMIN D3) 1,000 UNIT TABLET PO SCH (08:26)
[2021-07-22] MEDS: VALPROIC ACID 250 MG CAPSULE. PO SCH ×3 (08:26→19:45)
[2021-07-22] MEDS: metFORMIN 500 MG TABLET PO SCH ×2 (08:26→17:46)
[2021-07-22] MEDS: QUEtiapine 100 MG TABLET. PO SCH ×3 (08:26→19:45)
[2021-07-22] MEDS: INSULIN LISPRO 300 UNITS/3 ML VIAL. SQ SCH ×4 (08:33→19:41)
[2021-07-22 16:07] VITALS: BP 134/85
[2021-07-22] MEDS: clonazePAM 0.5 MG TABLET PO SCH (19:45)
[2021-07-22] MEDS: INSULIN GLARGINE SYRINGE. SQ SCH (19:47)
--- NOTE | 2021-07-23 00:03 | PN ---
DATE: 07/22/2021 SUBJECTIVE: The patient was seen today, met with the staff, chart reviewed. Staff reports that the patient is exhibiting fluctuating symptoms, demanding, cursing, irritable, angry and also resistive to care. He kept his legs closed tight and refusing to open them stating they do not open like that and staff was trying to change his underwear. The patient did attend some of the groups and compliant with the medications. OBSERVATION: VITAL SIGNS: Temperature 98.6, blood pressure 134/85, pulse 70, respirations 20, O2 sat 98%. GENERAL: Slept about 6 hours last night. The patient's appetite is normal. CURRENT MEDICATIONS: Fluvoxamine 75 mg daily, valproic acid 750 mg 3 times a day, Seroquel 100 mg 3 times a day, clonazepam 0.5 mg at night, Haldol 5 mg q. 6 hours p.r.n. The patient is not having any side effects to the medications. LABORATORY DATA: The patient's lab reviewed. ASSESSMENT: 1. Schizoaffective disorder, mixed without psychotic features. 2. Impulse control disorder, unspecified. 3. Adjustment disorder with depressed mood. PLAN: To continue treatment. LENGTH OF STAY: 7 days. SONG/ALBERT/NISH DR: Christopher TID: [id number]
[2021-07-23] MEDS: traMADol 50 MG TABLET PO PRN ×2 (04:21→13:51)
[2021-07-23] MEDS: LEVOTHYROXINE 50 MCG TABLET PO SCH (04:22)
[2021-07-23 05:38] VITALS: BP 130/73
[2021-07-23] MEDS: LACTOBACILLUS RHAMNOSUS GG 1 CAPSULE. PO SCH ×2 (08:25→19:56)
[2021-07-23] MEDS: NICOTINE 14MG PATCH. TD SCH (08:25)
[2021-07-23] MEDS: QUEtiapine 100 MG TABLET. PO SCH ×3 (08:25→19:57)
[2021-07-23] MEDS: metFORMIN 500 MG TABLET PO SCH ×2 (08:25→17:30)
[2021-07-23] MEDS: VALPROIC ACID 250 MG CAPSULE. PO SCH ×3 (08:25→19:56)
[2021-07-23] MEDS: GLIMEPIRIDE 2 MG TABLET PO SCH (08:25)
[2021-07-23] MEDS: CHOLECALCIFEROL (VITAMIN D3) 1,000 UNIT TABLET PO SCH (08:26)
[2021-07-23] MEDS: INSULIN LISPRO 300 UNITS/3 ML VIAL. SQ SCH ×4 (08:35→20:03)
--- NOTE | 2021-07-23 14:43 | TX PLAN ---
Interdisciplinary Tx Plan Admission Information July 19, 2021 at 14:31 Legal Status (on Admission): Voluntary DPOA/Guardian Name: Self Sign Other Contact Name: Ayesha COHEN at [facility] Other Contact Verified Code Status: Full Code Allergies: Coded Allergies: Influenza Virus Vaccines (Verified Allergy, Unknown, Anaphylaxis, 06/15/20) egg (Verified Allergy, Unknown, 12/21/19) Estimated Length of Stay: 14 Diagnoses Primary Diagnosis: Schizoaffective d/o Reasons for Admission: Aggressive, Relation/conflict, Agitated, Angry, Combative, Poor impulse control Problem in Patient's Words: Pavan expressed that he needs to get his anger under control and the best way to do that is to get his medications adjusted. Additional Admission Comments: Per intake record, verbally abusive, cursing, aggressive towards staff, smoking cigarettes inside the intermediate. Problems Active Problems: verbally abusive cursing aggressive irritable demanding Inactive Problems: Medication compliant Adequate meal intake Adequate sleep Pt Strengths/Limitations Ability for [place]: Poor Cognitive Functioning/Ability: Fair Communication Skills/Ability: Fair Financial Resources: Fair Insight/Judgement: Poor Intellectual Ability: Fair Physical Health: Fair Social Skills: Fair Stability in Family: Fair Verbal Skills: Fair Discharge Criteria Discharge Criteria: Adequate arrangements @DC, Improved behavior, Improved mood/thought Preliminary Discharge Plan Preliminary DC Plan: [facility] Other Arrangements: [facility] Special Precautions Special Precautions: Agitation/Assault Fall Risk: High Initial D/C Plan To return to [facility] Identified Discharge Needs: F/U with PCP, Psychiatrist, arrange for counseling if available. Currently Utilized Resources Currently Utilized Resources/P: 24 hour care at [facility] PCP Out patient psychiatry Referrals Community Resources: Counseling support, if available Identified Problems/Hx/Goals Objectives/Short-Term Goals Short Term Goals: Control abnormal behavior, Dec. Aggression, Dec. Outbursts, Medication Stabilization, Monitor Med Effects, Promote Coping Skill Short Term Goals in Patient's: Per Pavan, to get his anger under control. Interventions/Frequency Staff Interventions/Frequency&: Nursing to provide routine safety checks, meds, and adl support. Psychiatrist to see three times weekly. SW to see twice weekly. Recreational/SW groups as Esa is willing. 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 Social: Riding motorcycles, rock music, watching tv, enjoys animals Education: Pavan graduated high school. 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
[2021-07-23 16:09] VITALS: BP 112/73
[2021-07-23] MEDS: clonazePAM 0.5 MG TABLET PO SCH (19:57)
[2021-07-23] MEDS: INSULIN GLARGINE SYRINGE. SQ SCH (20:08)
== END 2021-07-24 | DRG 885 ==
LOC: ER 11:05 → GEROPSY 14:31
PROVIDERS: ADMIT Psychiatry & Neurology Psychiatry; ATTEND Psychiatry & Neurology Psychiatry
DX: F25.0 Schizoaffective disorder, bipolar type (principal); E03.9 Hypothyroidism, unspecified; Z20.822 Contact with and (suspected) exposure to COVID-19; E11.9 Type 2 diabetes mellitus without complications; F17.210 Nicotine dependence, cigarettes, uncomplicated; F43.21 Adjustment disorder with depressed mood; F63.9 Impulse disorder, unspecified; I10 Essential (primary) hypertension; Z79.899 Other long term (current) drug therapy; Z86.16 Personal history of COVID-19; F41.9 Anxiety disorder, unspecified; G89.29 Other chronic pain; Z88.7 Allergy status to serum and vaccine; Z91.012 Allergy to eggs; F42.9 Obsessive-compulsive disorder, unspecified
CPT/HCPCS: 36415; 80053; 80061; 80164; 80307; 81001; 82306; 82947; 83036; 83540; 83550; 83735; 84436; 84443; 84480; 85025; 85379; 86592; 87428; 93005; G0480; J1815; P9612; U0003; 97530; 99285-25